=== PATIENT | female | born 1945 | race Two or more races ===

== ENCOUNTER 2020-02-20 08:55 | Outpatient (REF) | payer MEDICARE, SELFPAY ==
[2020-02-20 11:15] LABS: MANUAL DIFF FLAG NO
[2020-02-20 11:32] LABS: Basophils Absolute Auto 0.1 X10*3/uL (0.0-0.2); Basophils Percent Auto 0.7 % (0-2); Eosinophils Absolute Auto 0.3 X10*3/uL (0.0-0.4); Eosinophils Percent Auto 4.9 % (0-4); Hematocrit 34.9 % (37-47); Hemoglobin 10.5 g/dl (12.0-16.0); Imm Gran Abs Auto 0.03 X10*3/uL (0.00-0.03); Imm Gran Pct Auto 0.4 % (0.0-0.4); Lymphocytes Absolute Auto 1.4 X10*3/uL (1.2-4.9); Lymphocytes Percent Auto 20.7 % (20-40); Mean Corpuscular HGB Conc 30.1 g/dl (31.0-35.0); Mean Corpuscular Hemoglobin 23.3 pg (27.0-33.0); Mean Corpuscular Volume 77.6 fL (80-98); Mean Platelet Volume 11.1 fL (9.4-12.3); Monocytes Absolute Auto 0.8 X10*3/uL (0.1-1.2); Monocytes Percent Auto 12.3 % (2-11); Neutrophils Absolute Auto 4.1 X10*3/uL (2.0-8.3); Platelet Count 288 X10*3/uL (160-400); Red Cell Distribution Width 19.4 % (11.0-16.0); White Blood Count 6.7 X10*3/uL (4.8-10.8)
[2020-02-20 11:51] LABS: Glucose Urine UA NEG (NEG); Leukocyte Esterase Urine NEG (NEG); Nitrite Urine NEG (NEG); Urine Blood NEG (NEG); Urine Ketones NEG (NEG); Urine Protein NEG (NEG-TRACE)
[2020-02-20 11:57] LABS: Appearance Urine CLEAR; Color Urine YELLOW
[2020-02-20 12:01] LABS: Alanine Aminotransferase 14 U/L (0-31); Albumin Level 3.8 g/dL (3.5-5.0); Alkaline Phosphatase 81 U/L (39-117); Anion Gap 14 (12-20); Aspartate Amino Transferase 16 U/L (5-31); Bilirubin Total 0.4 mg/dL (0.0-1.0); Blood Urea Nitrogen 34 mg/dL (9-16); C Reactive Protein 0.55 mg/dL (< or = 0.50); Calcium 8.4 mg/dL (8.4-10.2); Carbon Dioxide 24 mmol/L (22-29); Chloride 106 mmol/L (96-108); Estimated Glomerular Filt Rate 38; Glucose Random 205 mg/dL (60-115); Potassium 4.6 mmol/l (3.3-5.1); Sodium 139 mmol/L (135-145); Total Protein 6.4 g/dL (6.5-8.0)
[2020-02-20 12:02] LABS: Hepatitis A Antibody IgM 0.21 Index (0-0.79); ~Hepatitis A Antibody IgM Nonreactive (Nonreactive)
[2020-02-20 12:15] LABS: RBC Urine 0 /HPF (0); Squamous Epithelial Cell Urine 1+ /LPF; WBC Urine 0 /HPF (0-4)
[2020-02-20 12:43] LABS: Erythrocyte Sedimentation Rate 30 MM/HR (0-20)
[2020-02-21 04:04] LABS: HBS Num1 0.78 mIU/mL (0-7.99); HBc Num1 0.09 S/CO (0.00-0.79); Hepatitis B Core Antibody Nonreactive (Nonreactive); ~HepC Num1 0.07 S/CO (0.00-0.79); ~Hepatitis B Surface Antibody NONREACTIVE (Nonreactive); ~Hepatitis C Antibody Nonreactive (Nonreactive)
[2020-02-21 04:16] LABS: HBsAGNum1 0.15 S/CO (0.00-0.99); Hepatitis B Surface Antigen Negative (Negative)
[2020-02-22 19:01] LABS: TS Negative Control Passed; TS Panel A 0; TS Panel B 0; TS Positive Control Passed; TSpotTB Negative (SeeBelow)
== END 2020-02-20 08:56 | disposition home or self-care (01) ==
LOC: HO.LAB 08:55
PROVIDERS: PCP Internal Medicine; Referring Provider Internal Medicine; Visit Provider Student in an Organized Health Care Education/Training Program
DX: M05.9 Rheumatoid arthritis with rheumatoid factor, unspecified (principal); R30.0 Dysuria; Z79.899 Other long term (current) drug therapy
CPT/HCPCS: 36415; 80053; 81001; 85025; 85652; 86140; 86481; 86704; 86706; 86709; 86803; 87340; 99212

== ENCOUNTER 2020-09-09 11:13 | Outpatient (REF) | payer MEDICARE, SELFPAY ==
--- NOTE | ~2020-09-09 | XR_ITS ---
EXAMINATION: LUMBAR SPINE AND PELVIS X-RAY CLINICAL INFORMATION: Rheumatoid arthritis. COMPARISON: Pelvic CT August 2016 TECHNIQUE: One view of the pelvis and 3 views of the lumbar spine FINDINGS: Pelvis: Bone alignment is normal. No fracture or dislocation is seen. There is joint space narrowing at both hip joints. There is irregular increased sclerosis at both sacroiliac joints suggestive of sacroiliitis. Soft tissues are unremarkable. Lumbar spine: There is curvature of the mid lumbar spine to the right. There is mild 1 to 2 mm anterior subluxation of L4 with respect L5. No fracture or dislocation is seen. There is degenerative disc disease at L5-S1 and question L2-L3 and L3-L4. There is lower lumbar spine facet arthritis. There is evidence of atherosclerotic disease. XR/XR pelvis 1-2V IMPRESSION: Pelvis: Bilateral hip joint space narrowing. Bilateral sacroiliitis. Lumbar spine: Curvature of the lumbar spine to the right and degenerative changes.
--- NOTE | ~2020-09-09 | XR_ITS ---
EXAMINATION: LUMBAR SPINE AND PELVIS X-RAY CLINICAL INFORMATION: Rheumatoid arthritis. COMPARISON: Pelvic CT August 2016 TECHNIQUE: One view of the pelvis and 3 views of the lumbar spine FINDINGS: Pelvis: Bone alignment is normal. No fracture or dislocation is seen. There is joint space narrowing at both hip joints. There is irregular increased sclerosis at both sacroiliac joints suggestive of sacroiliitis. Soft tissues are unremarkable. Lumbar spine: There is curvature of the mid lumbar spine to the right. There is mild 1 to 2 mm anterior subluxation of L4 with respect L5. No fracture or dislocation is seen. There is degenerative disc disease at L5-S1 and question L2-L3 and L3-L4. There is lower lumbar spine facet arthritis. There is evidence of atherosclerotic disease. XR/XR lumbar spine 2-3V IMPRESSION: Pelvis: Bilateral hip joint space narrowing. Bilateral sacroiliitis. Lumbar spine: Curvature of the lumbar spine to the right and degenerative changes.
[2020-09-09 13:34] LABS: MANUAL DIFF FLAG NO
[2020-09-09 13:43] LABS: Basophils Absolute Auto 0.1 X10*3/uL (0.0-0.2); Basophils Percent Auto 0.7 % (0-2); Eosinophils Absolute Auto 0.4 X10*3/uL (0.0-0.4); Eosinophils Percent Auto 5.1 % (0-4); Hematocrit 31.5 % (37-47); Hemoglobin 9.4 g/dl (12.0-16.0); Imm Gran Abs Auto 0.08 X10*3/uL (0.00-0.03); Lymphocytes Percent Auto 13.4 % (20-40); Mean Corpuscular HGB Conc 29.8 g/dl (31.0-35.0); Mean Corpuscular Hemoglobin 22.9 pg (27.0-33.0); Mean Corpuscular Volume 76.8 fL (80-98); Mean Platelet Volume 10.1 fL (9.4-12.3); Monocytes Absolute Auto 0.8 X10*3/uL (0.1-1.2); Monocytes Percent Auto 10.2 % (2-11); Neutrophils Absolute Auto 5.3 X10*3/uL (2.0-8.3); Neutrophils Percent Auto 69.6 % (45-73); Platelet Count 381 X10*3/uL (160-400); Red Cell Distribution Width 18.8 % (11.0-16.0); White Blood Count 7.6 X10*3/uL (4.8-10.8)
[2020-09-09 13:50] LABS: Alanine Aminotransferase 10 U/L (0-31); Albumin Level 3.6 g/dL (3.5-5.0); Alkaline Phosphatase 92 U/L (39-117); Anion Gap 15 (12-20); Aspartate Amino Transferase 13 U/L (5-31); Bilirubin Total 0.5 mg/dL (0.0-1.0); Blood Urea Nitrogen 21 mg/dL (9-16); C Reactive Protein 0.65 mg/dL (< or = 0.50); Carbon Dioxide 20 mmol/L (22-29); Chloride 107 mmol/L (96-108); Estimated Glomerular Filt Rate 46; Glucose Random 196 mg/dL (60-115); Potassium 4.9 mmol/L (3.3-5.1); Sodium 137 mmol/L (135-145); Total Protein 6.4 g/dL (6.5-8.0)
[2020-09-09 14:34] LABS: Erythrocyte Sedimentation Rate 45 MM/HR (0-20)
== END 2020-09-09 11:14 | disposition home or self-care (01) ==
LOC: HO.XRAY 11:13
PROVIDERS: PCP Internal Medicine; Visit Provider Student in an Organized Health Care Education/Training Program
DX: M47.816 Spondylosis without myelopathy or radiculopathy, lumbar region (principal); M05.9 Rheumatoid arthritis with rheumatoid factor, unspecified
CPT/HCPCS: 36415; 72100; 72170; 80053; 85025; 85652; 86140; 99212

== ENCOUNTER → 2022-01-04 13:03 | Outpatient (BNVA) | payer MEDICARE, SELFPAY | PROVIDERS: PCP Internal Medicine; Visit Provider Internal Medicine | DX: M54.16 Radiculopathy, lumbar region (principal); Z98.890 Other specified postprocedural states | CPT/HCPCS: 99202 ==

== ENCOUNTER 2022-01-07 15:00 | Outpatient (REF) | payer MEDICARE, SELFPAY ==
--- NOTE | ~2022-01-07 | XR_ITS ---
EXAMINATION: XR ANKLE, LEFT XR FOOT, LEFT XR ANKLE, RIGHT XR FOOT, RIGHT CLINICAL INFORMATION: Pain and bilateral ankles and feet COMPARISON: None TECHNIQUE: 3 views of the left ankle. 3 views of the left foot. 3 views of the right ankle. 3 views of the right foot. FINDINGS: Left ankle and foot: There is anatomic alignment across the ankle. Distal tibia and fibula are intact. Chronic appearing calcification in the posterior distal leg is suggestive of a phlebolith. Posterior calcaneal spurring is noted. There is varus angulation at the second through fifth MTP joints. Articular alignment throughout the foot otherwise appears maintained, with no acute fracture identified. Right ankle and foot: Alignment across the ankle is anatomic with mild degenerative change. Distal tibia and fibula are intact. Posterior and plantar calcaneal spurs are noted. Mild degenerative change at the first MTP joint. There is varus angulation at the second through fifth MTP joints. Articular alignment throughout the foot otherwise appears maintained, with no acute fracture identified. XR/XR foot RT 2V IMPRESSION: No acute findings identified in the ankles or feet. Varus angulation at the second through fifth MTP joints bilaterally. Additional chronic appearing/degenerative changes as noted above.
--- NOTE | ~2022-01-07 | XR_ITS ---
EXAMINATION: XR ANKLE, LEFT XR FOOT, LEFT XR ANKLE, RIGHT XR FOOT, RIGHT CLINICAL INFORMATION: Pain and bilateral ankles and feet COMPARISON: None TECHNIQUE: 3 views of the left ankle. 3 views of the left foot. 3 views of the right ankle. 3 views of the right foot. FINDINGS: Left ankle and foot: There is anatomic alignment across the ankle. Distal tibia and fibula are intact. Chronic appearing calcification in the posterior distal leg is suggestive of a phlebolith. Posterior calcaneal spurring is noted. There is varus angulation at the second through fifth MTP joints. Articular alignment throughout the foot otherwise appears maintained, with no acute fracture identified. Right ankle and foot: Alignment across the ankle is anatomic with mild degenerative change. Distal tibia and fibula are intact. Posterior and plantar calcaneal spurs are noted. Mild degenerative change at the first MTP joint. There is varus angulation at the second through fifth MTP joints. Articular alignment throughout the foot otherwise appears maintained, with no acute fracture identified. XR/XR ankle RT min 3V IMPRESSION: No acute findings identified in the ankles or feet. Varus angulation at the second through fifth MTP joints bilaterally. Additional chronic appearing/degenerative changes as noted above.
--- NOTE | ~2022-01-07 | XR_ITS ---
EXAMINATION: XR ANKLE, LEFT XR FOOT, LEFT XR ANKLE, RIGHT XR FOOT, RIGHT CLINICAL INFORMATION: Pain and bilateral ankles and feet COMPARISON: None TECHNIQUE: 3 views of the left ankle. 3 views of the left foot. 3 views of the right ankle. 3 views of the right foot. FINDINGS: Left ankle and foot: There is anatomic alignment across the ankle. Distal tibia and fibula are intact. Chronic appearing calcification in the posterior distal leg is suggestive of a phlebolith. Posterior calcaneal spurring is noted. There is varus angulation at the second through fifth MTP joints. Articular alignment throughout the foot otherwise appears maintained, with no acute fracture identified. Right ankle and foot: Alignment across the ankle is anatomic with mild degenerative change. Distal tibia and fibula are intact. Posterior and plantar calcaneal spurs are noted. Mild degenerative change at the first MTP joint. There is varus angulation at the second through fifth MTP joints. Articular alignment throughout the foot otherwise appears maintained, with no acute fracture identified. XR/XR ankle LT min 3V IMPRESSION: No acute findings identified in the ankles or feet. Varus angulation at the second through fifth MTP joints bilaterally. Additional chronic appearing/degenerative changes as noted above.
--- NOTE | ~2022-01-07 | XR_ITS ---
EXAMINATION: XR ANKLE, LEFT XR FOOT, LEFT XR ANKLE, RIGHT XR FOOT, RIGHT CLINICAL INFORMATION: Pain and bilateral ankles and feet COMPARISON: None TECHNIQUE: 3 views of the left ankle. 3 views of the left foot. 3 views of the right ankle. 3 views of the right foot. FINDINGS: Left ankle and foot: There is anatomic alignment across the ankle. Distal tibia and fibula are intact. Chronic appearing calcification in the posterior distal leg is suggestive of a phlebolith. Posterior calcaneal spurring is noted. There is varus angulation at the second through fifth MTP joints. Articular alignment throughout the foot otherwise appears maintained, with no acute fracture identified. Right ankle and foot: Alignment across the ankle is anatomic with mild degenerative change. Distal tibia and fibula are intact. Posterior and plantar calcaneal spurs are noted. Mild degenerative change at the first MTP joint. There is varus angulation at the second through fifth MTP joints. Articular alignment throughout the foot otherwise appears maintained, with no acute fracture identified. XR/XR foot LT 2V IMPRESSION: No acute findings identified in the ankles or feet. Varus angulation at the second through fifth MTP joints bilaterally. Additional chronic appearing/degenerative changes as noted above.
[2022-01-07 15:26] LABS: MANUAL DIFF FLAG NO
[2022-01-07 15:31] LABS: Basophils Absolute Auto 0.1 X10*3/uL (0.0-0.2); Basophils Percent Auto 0.7 % (0-2); Eosinophils Absolute Auto 0.4 X10*3/uL (0.0-0.4); Hematocrit 34.5 % (37.0-47.0); Hemoglobin 10.6 g/dl (12.0-16.0); Imm Gran Abs Auto 0.03 X10*3/uL (0.00-0.03); Imm Gran Pct Auto 0.4 % (0.0-0.4); Lymphocytes Absolute Auto 1.3 X10*3/uL (1.2-4.9); Lymphocytes Percent Auto 19.5 % (20-40); Mean Corpuscular HGB Conc 30.7 g/dl (31.0-35.0); Mean Corpuscular Hemoglobin 24.8 pg (27.0-33.0); Mean Corpuscular Volume 80.8 fL (80.0-98.0); Mean Platelet Volume 10.5 fL (9.4-12.3); Monocytes Absolute Auto 0.8 X10*3/uL (0.1-1.2); Monocytes Percent Auto 11.8 % (2-11); Neutrophils Absolute Auto 4.2 x10*3/uL (2.0-8.3); Neutrophils Percent Auto 61.6 % (45-73); Platelet Count 314 X10*3/uL (160-400); Red Blood Count 4.27 X10*6/uL (4.20-5.50); Red Cell Distribution Width 15.7 % (11.0-16.0); White Blood Count 6.9 X10*3/uL (4.8-10.8)
[2022-01-07 15:46] LABS: Estimated Average Glucose 131 mg/dL; Hemoglobin A1c % 6.2 %
[2022-01-07 15:49] LABS: Alanine Aminotransferase 14 U/L (0-31); Albumin Level 3.8 g/dL (3.5-5.0); Alkaline Phosphatase 109 U/L (39-117); Anion Gap 15 (12-20); Aspartate Amino Transferase 20 U/L (5-31); Bilirubin Total 0.5 mg/dL (0.0-1.0); Blood Urea Nitrogen 33 mg/dL (9-16); C Reactive Protein 1.15 mg/dL (< or = 0.50); Calcium 8.6 mg/dL (8.4-10.2); Carbon Dioxide 24 mmol/L (22-29); Chloride 105 mmol/L (96-108); Estimated Glomerular Filt Rate 43; Glucose Random 81 mg/dL (60-115); Potassium 4.8 mmol/L (3.3-5.1); Sodium 139 mmol/L (135-145); Total Protein 6.4 g/dL (6.5-8.0); Uric Acid 6.9 mg/dL (2.4-5.7)
[2022-01-07 16:13] LABS: Erythrocyte Sedimentation Rate 54 MM/HR (0-20)
[2022-01-07 17:30] LABS: Iron 32 mcg/dL (30-160); Percent Iron Saturation 9 % (15-50); Total Iron Binding Capacity 337 mcg/dL (228-428); Unsaturated Iron Binding 305 ug/dL
[2022-01-07 17:50] LABS: Ferritin 194 ng/mL (10-250)
[2022-01-08 07:14] LABS: HBS Num1 1.48 mIU/mL (0-7.99); HBc Num1 0.06 S/CO (0.00-0.79); HBsAGNum1 0.23 S/CO (0.00-0.99); Hepatitis A Antibody IgM 0.26 Index (0-0.79); Hepatitis B Core Antibody Nonreactive (Nonreactive); Hepatitis B Surface Antigen Negative (Negative); ~HepC Num1 0.07 S/CO (0.00-0.79); ~Hepatitis A Antibody IgM Nonreactive (Nonreactive); ~Hepatitis B Surface Antibody NONREACTIVE (Nonreactive); ~Hepatitis C Antibody Nonreactive (Nonreactive)
[2022-01-09 14:27] LABS: Transferrin 254 mg/dL (188-341)
[2022-01-09 23:11] LABS: Prot Elec - Albumin 3.3 g/dL (3.8-4.8); Prot Elec - Alpha1 0.4 g/dL (0.2-0.3); Prot Elec - Beta 1 0.4 g/dL (0.4-0.6); Prot Elec - Beta 2 0.4 g/dL (0.2-0.5); Prot Elec - Gamma 0.6 g/dL (0.8-1.7); Prot Elec - Total Protein 6.2 g/dL (6.1-8.1)
[2022-01-11 13:53] LABS: Vitamin D 25-OH, D2 <4 ng/mL; Vitamin D 25-OH, D3 32 ng/mL; Vitamin D 25-OH, Total 32 ng/mL (30-100)
[2022-01-11 14:22] LABS: IgA 345 mg/dL (70-320); IgG 623 mg/dL (600-1540); IgM 63 mg/dL (50-300)
[2022-01-11 23:41] LABS: TS Negative Control Passed; TS Panel A 0; TS Panel B 0; TS Positive Control Passed; TSpotTB Negative (Negative)
[2022-01-12 10:22] LABS: HLA B27 Negative (Negative)
== END 2022-01-07 15:01 | disposition home or self-care (01) ==
LOC: HO.LAB 15:00
PROVIDERS: PCP Internal Medicine; Visit Provider Student in an Organized Health Care Education/Training Program
DX: Z13.21 Encounter for screening for nutritional disorder (principal); Z11.7 Encounter for testing for latent tuberculosis infection; Z12.9 Encounter for screening for malignant neoplasm, site unspecified; Z11.59 Encounter for screening for other viral diseases; E11.69 Type 2 diabetes mellitus with other specified complication; E66.9 Obesity, unspecified; E88.81 Metabolic syndrome and other insulin resistance; M54.50 Low back pain, unspecified; M25.572 Pain in left ankle and joints of left foot; M25.571 Pain in right ankle and joints of right foot; M05.9 Rheumatoid arthritis with rheumatoid factor, unspecified
CPT/HCPCS: 36415; 73610; 73620; 80053; 82306; 82728; 82784; 83036; 83540; 84165; 84466; 84550; 85025; 85652; 86140; 86334; 86481; 86704; 86706; 86709; 86803; 86812; 87340; 99212

== ENCOUNTER 2022-01-13 06:11 | Outpatient (REF) | payer MEDICARE, SELFPAY ==
--- NOTE | ~2022-01-13 | FL_ITS ---
EXAMINATION: XR FLUOROSCOPY WITH IMAGES CLINICAL INFORMATION: Left lumbar injection. COMPARISON: None. TECHNIQUE: Fluoroscopy performed by LORENA Bradford. Fluoroscopy time: 0.7 minutes. Cumulative Dose: 19.6 mGy. DAP: 2.42 Gy-cm2. Images: 2. FINDINGS: There is a needle positioned posterior and to the right of L3 vertebra with contrast opacifying the right paraspinal soft tissues. There is loss of disc height at L3-L4 and L4-L5 disc levels with spondylosis. FL/FL guidance in treatment room IMPRESSION: Fluoroscopy guidance was provided to the referrer for pain management.
== END 2022-01-13 06:12 | disposition home or self-care (01) ==
LOC: CF 06:11
PROVIDERS: Visit Provider Internal Medicine
DX: M54.16 Radiculopathy, lumbar region (principal); M05.9 Rheumatoid arthritis with rheumatoid factor, unspecified
CPT/HCPCS: 64483; J1100

== ENCOUNTER 2022-01-26 15:07 | Outpatient (REF) | payer MEDICARE, SELFPAY ==
--- NOTE | ~2022-01-26 | MM_ITS ---
EXAMINATION: BONE DENSITOMETRY CLINICAL INDICATION: Screening for osteoporosis. COMPARISON: Previous BD dated 07/27/2016 and baseline BD dated 07/25/2014. TECHNIQUE: Using a [employer] DXA System (software version: 13.1) manufactured by [employer], dual-energy x-ray absorptiometry was performed of the lumbar spine and left hip. The images are of good technical quality. Summary results are attached. FINDINGS: AP SPINE L1-L2 (excluding L3 and L4): The data of L1-L4 has been changed to exclude the L3 and L4 vertebral bodies, because degenerative change at these levels may cause overestimation of lumbar spine density. Current: BMD 0.822 g/cm2, Z-score -1.7, T-score -2.9, osteoporosis, 13.5% decrease from previous, 4.2% decrease from baseline (<5% change is not significant). Prior: BMD 0.950 g/cm2. Baseline: BMD 0.858 g/cm2. LEFT FEMUR, NECK: Current: BMD 0.655 g/cm2, Z-score -1.2, T-score -2.8, osteoporosis. Prior: BMD 0.696 g/cm2. Baseline: BMD 0.718 g/cm2. LEFT FEMUR, TOTAL: Current: BMD 0.683 g/cm2, Z-score -1.2, T-score -2.6, osteoporosis, 9.9% decrease from previous, 7.3% decrease from baseline (<5% change is not significant). Prior: BMD 0.758 g/cm2. Baseline: BMD 0.737 g/cm2. IDENTIFIED RISK FACTORS: Menopause, glucocorticoids (chronic), history of fracture (adult), osteoporosis, renal, rheumatoid arthritis. HISTORY OF FRACTURE: Humerus. MEDICATIONS: Calcium. MM/XR DEXA axial skeleton IMPRESSION: 1. DIAGNOSIS: Severe osteoporosis based on the lowest T-score value of -2.9 in the lumbar spine applying World Health Organization criteria. 2. 10-YEAR FRACTURE RISK PREDICTION, FRAX: According to the guidelines, FRAX calculation should only be performed on patients in the osteopenia bone density category. Therefore, FRAX was not performed on this patient. 3. Treatment Recommendations: NOF guidelines recommend consideration for treatment in postmenopausal women and men age 50 and older presenting with the following: -A hip or vertebral (clinical or morphometric) fracture. -T-score less than or equal to -2.5 at the femoral neck or spine after appropriate evaluation to exclude secondary causes. -Low bone mass at the hip or spine and a 10-year fracture probability by FRAX of greater than or equal to 3% for hip fracture or greater than or equal to 20% for major osteoporotic fracture based on the [place] adapted WHO algorithm. 4. Other Recommendations: All treatment decisions require clinical judgment and consideration of individual patient factors, including patient preferences, comorbidities, previous drug use, risk factors not captured in the FRAX model (e.g. frailty, falls, vitamin D deficiency, increased bone turnover, interval significant decline in bone density) and possible under or overestimation of fracture risk by FRAX. Additional medical evaluation for secondary cause of low bone mineral density may be appropriate. FUTURE SCAN RECOMMENDATION: People with diagnosed cases of osteoporosis or at high risk for fracture should have regular bone mineral density tests. For patients eligible for Medicare, routine testing is allowed once every 2 years. The testing frequency can be increased to one year for patients who have rapidly progressing disease, those who are receiving or discontinuing medical therapy to restore bone mass, or have additional risk factors.
== END 2022-01-26 15:08 | disposition home or self-care (01) ==
LOC: HO.MAMMO 15:07
PROVIDERS: PCP Internal Medicine; Visit Provider Student in an Organized Health Care Education/Training Program
DX: Z13.820 Encounter for screening for osteoporosis (principal); Z78.0 Asymptomatic menopausal state; M81.0 Age-related osteoporosis without current pathological fracture
CPT/HCPCS: 77080

== ENCOUNTER → 2022-01-28 09:03 | Outpatient (BNVA) | payer MEDICARE, SELFPAY | PROVIDERS: PCP Internal Medicine; Visit Provider Student in an Organized Health Care Education/Training Program | DX: M05.9 Rheumatoid arthritis with rheumatoid factor, unspecified (principal); M54.50 Low back pain, unspecified; Z79.899 Other long term (current) drug therapy; M81.0 Age-related osteoporosis without current pathological fracture; D47.2 Monoclonal gammopathy | CPT/HCPCS: Q3014 ==

== ENCOUNTER 2022-04-05 14:37 | Outpatient (REF) | payer OTHER, SELFPAY ==
[2022-04-05 14:59] LABS: MANUAL DIFF FLAG NO
[2022-04-05 15:05] LABS: Basophils Absolute Auto 0.1 X10*3/uL (0.0-0.2); Basophils Percent Auto 0.7 % (0-2); Eosinophils Percent Auto 0.1 % (0-4); Hematocrit 34.1 % (37.0-47.0); Hemoglobin 10.4 g/dl (12.0-16.0); Imm Gran Abs Auto 0.03 X10*3/uL (0.00-0.03); Imm Gran Pct Auto 0.4 % (0.0-0.4); Lymphocytes Absolute Auto 1.5 X10*3/uL (1.2-4.9); Lymphocytes Percent Auto 20.5 % (20-40); Mean Corpuscular HGB Conc 30.5 g/dl (31.0-35.0); Mean Corpuscular Hemoglobin 23.4 pg (27.0-33.0); Mean Corpuscular Volume 76.6 fL (80.0-98.0); Mean Platelet Volume 10.6 fL (9.4-12.3); Monocytes Absolute Auto 0.7 X10*3/uL (0.1-1.2); Monocytes Percent Auto 9.6 % (2-11); Neutrophils Absolute Auto 5.1 x10*3/uL (2.0-8.3); Neutrophils Percent Auto 68.7 % (45-73); Platelet Count 370 X10*3/uL (160-400); Red Blood Count 4.45 X10*6/uL (4.20-5.50); Red Cell Distribution Width 19.2 % (11.0-16.0); White Blood Count 7.4 X10*3/uL (4.8-10.8)
[2022-04-05 15:32] LABS: Appearance Urine Clear; Color Urine Yellow; Glucose Urine UA Negative (Negative); Leukocyte Esterase Urine Negative (Negative); Nitrite Urine Negative (Negative); PH 5.5 (5.0-9.0); Urine Blood Negative (Negative); Urine Ketones Negative (Negative); Urine Protein Negative (Neg-Trace)
[2022-04-05 15:36] LABS: Bacteria Urine None Seen (None Seen); Hyaline Casts Urine 0-2 /LPF (0-2); RBC Urine 0-2 /HPF (0-2); Squamous Epithelial Cell Urine 0-2 /HPF (0-2); WBC Urine 0-5 /HPF (0-5)
[2022-04-05 15:47] LABS: Erythrocyte Sedimentation Rate 49 MM/HR (0-20)
[2022-04-05 16:15] LABS: Alanine Aminotransferase 13 U/L (0-31); Albumin Level 3.9 g/dL (3.5-5.0); Alkaline Phosphatase 88 U/L (39-117); Anion Gap 13 (12-20); Aspartate Amino Transferase 16 U/L (5-31); Bilirubin Total 0.4 mg/dL (0.0-1.0); Blood Urea Nitrogen 42 mg/dL (9-16); Carbon Dioxide 26 mmol/L (22-29); Chloride 101 mmol/L (96-108); Estimated Glomerular Filt Rate 36; Ferritin 135 ng/mL (10-250); Glucose Random 160 mg/dL (60-115); Iron 35 mcg/dL (30-160); Percent Iron Saturation 11 % (15-50); Potassium 4.8 mmol/L (3.3-5.1); Sodium 135 mmol/L (135-145); Total Iron Binding Capacity 322 mcg/dL (228-428); Total Protein 6.7 g/dL (6.5-8.0); Unsaturated Iron Binding 287 ug/dL
[2022-04-05 16:20] LABS: Creatinine Urine 35.64 mg/dL; Total Protein Urine Random < 7 mg/dL (<12)
[2022-04-06 19:18] LABS: Complement C3 178 mg/dL (83-193)
[2022-04-07 13:02] LABS: Anti DNA DS Antibody <1 IU/mL; Antibody to SS-A Antigen <1.0 NEG AI (<1.0 NEG); Antibody to SS-B Antigen <1.0 NEG AI (<1.0 NEG); SM/Ribonucleoprotein Ab <1.0 NEG AI (<1.0 NEG); Smith Protein <1.0 NEG AI (<1.0 NEG)
[2022-04-07 13:32] LABS: Transferrin 286 mg/dL (188-341)
[2022-04-09 15:18] LABS: Anti Nuclear Antibody Screen NEGATIVE (NEGATIVE)
== END 2022-04-05 14:38 | disposition home or self-care (01) ==
LOC: HO.LAB 14:37
PROVIDERS: PCP Internal Medicine; Visit Provider Student in an Organized Health Care Education/Training Program
DX: D64.9 Anemia, unspecified (principal); R80.9 Proteinuria, unspecified; M05.9 Rheumatoid arthritis with rheumatoid factor, unspecified
CPT/HCPCS: 36415; 80053; 81001; 82728; 83540; 84156; 84466; 85025; 85652; 86038; 86039; 86140; 86160; 86225; 86235

== ENCOUNTER 2022-04-06 10:51 | Outpatient (REF) | payer OTHER, SELFPAY ==
[2022-04-09 10:38] LABS: PEU-Protein Creat Ratio Rand NOTE (0.024-0.184); PEU-Rand. Prot/Creat Ratio NOTE mg/g creat (24-184); PEU-Random Ur. Gamma Globulin 0 %; PEU-Random Urine A1 Globulin 0 %; PEU-Random Urine A2 Globulin 0 %; PEU-Random Urine Albumin 0 %; PEU-Random Urine Beta Globulin 0 %; PEU-Random Urine Creatinine 25 mg/dL (20-275); PEU-Random Urine Protein <4 mg/dL (5-24)
== END 2022-04-06 10:52 | disposition home or self-care (01) ==
LOC: HO.LNP 10:51
PROVIDERS: Visit Provider Student in an Organized Health Care Education/Training Program
DX: R80.9 Proteinuria, unspecified (principal); M05.9 Rheumatoid arthritis with rheumatoid factor, unspecified; M54.50 Low back pain, unspecified; M81.0 Age-related osteoporosis without current pathological fracture; D47.2 Monoclonal gammopathy; Z79.899 Other long term (current) drug therapy; Z51.81 Encounter for therapeutic drug level monitoring
CPT/HCPCS: 82570; 84156; 84166; Q3014

== ENCOUNTER 2022-06-08 16:45 | Outpatient (REF) | payer OTHER, SELFPAY ==
[2022-06-08 16:57] LABS: MANUAL DIFF FLAG NO
[2022-06-08 18:17] LABS: Basophils Absolute Auto 0.1 X10*3/uL (0.0-0.2); Basophils Percent Auto 0.9 % (0-2); Eosinophils Absolute Auto 0.4 X10*3/uL (0.0-0.4); Eosinophils Percent Auto 6.7 % (0-4); Hematocrit 33.6 % (37.0-47.0); Hemoglobin 10.2 g/dl (12.0-16.0); Imm Gran Abs Auto 0.03 X10*3/uL (0.00-0.03); Imm Gran Pct Auto 0.5 % (0.0-0.4); Lymphocytes Absolute Auto 1.4 X10*3/uL (1.2-4.9); Lymphocytes Percent Auto 24.5 % (20-40); Mean Corpuscular HGB Conc 30.4 g/dl (31.0-35.0); Mean Corpuscular Hemoglobin 23.2 pg (27.0-33.0); Mean Corpuscular Volume 76.5 fL (80.0-98.0); Mean Platelet Volume 11.2 fL (9.4-12.3); Monocytes Absolute Auto 0.9 X10*3/uL (0.1-1.2); Neutrophils Percent Auto 52.4 % (45-73); Platelet Count 311 X10*3/uL (160-400); Red Blood Count 4.39 X10*6/uL (4.20-5.50); Red Cell Distribution Width 18.3 % (11.0-16.0); White Blood Count 5.8 X10*3/uL (4.8-10.8)
[2022-06-08 18:53] LABS: Erythrocyte Sedimentation Rate 37 MM/HR (0-20)
[2022-06-08 19:01] LABS: Alanine Aminotransferase 12 U/L (0-31); Albumin Level 3.7 g/dL (3.5-5.0); Alkaline Phosphatase 84 U/L (39-117); Anion Gap 13 (12-20); Aspartate Amino Transferase 16 U/L (5-31); Bilirubin Total 0.4 mg/dL (0.0-1.0); Blood Urea Nitrogen 38 mg/dL (9-16); C Reactive Protein 0.33 mg/dL (< or = 0.50); Calcium 8.8 mg/dL (8.4-10.2); Carbon Dioxide 23 mmol/L (22-29); Chloride 105 mmol/L (96-108); Estimated Glomerular Filt Rate 42; Glucose Random 109 mg/dL (60-115); Potassium 4.4 mmol/L (3.3-5.1); Sodium 137 mmol/L (135-145); Total Protein 6.2 g/dL (6.5-8.0)
== END 2022-06-08 16:46 | disposition home or self-care (01) ==
LOC: HO.LAB 16:45
PROVIDERS: PCP Internal Medicine; Visit Provider Student in an Organized Health Care Education/Training Program
DX: M05.9 Rheumatoid arthritis with rheumatoid factor, unspecified (principal)
CPT/HCPCS: 36415; 80053; 85025; 85652; 86140

== ENCOUNTER → 2022-06-09 14:24 | Outpatient (BNVA) | payer OTHER, SELFPAY | PROVIDERS: PCP Internal Medicine; Visit Provider Student in an Organized Health Care Education/Training Program | DX: M05.9 Rheumatoid arthritis with rheumatoid factor, unspecified (principal); M81.0 Age-related osteoporosis without current pathological fracture; D47.2 Monoclonal gammopathy; Z79.899 Other long term (current) drug therapy | CPT/HCPCS: Q3014 ==

== ENCOUNTER 2022-09-10 11:17 | Outpatient (REF) | payer MEDICARE, SELFPAY ==
--- NOTE | ~2022-09-10 | MR_ITS ---
MR LUMBAR SPINE WITHOUT AND WITH CONTRAST CLINICAL INFORMATION: Lumbago with sciatica. COMPARISON: Lumbar spine MRI 12/29/2021. TECHNIQUE: MRI of the lumbar spine was obtained using routine sequences with and without contrast. Intravenous contrast: Gadavist 9 mL FINDINGS: There are 5 nonrib-bearing lumbar-type vertebral bodies. There is grade 1 anterolisthesis of L4 on L5. There is moderate disc volume loss at L3-L4. Mild disc volume loss at L5-S1. Disc desiccation at all lumbar levels. Modic type I endplate signal changes at L3-L4. No additional bone marrow edema. No acute fractures. No pathologic enhancement along the cauda equina nerve roots. Vertebral body heights overall maintained. Conus terminates at the L1 level. L1-L2: Slight annular disc bulge. No central canal stenosis and no foraminal stenosis. L2-L3: Shallow left paracentral disc protrusion results in posterior mass effect on the traversing left L3 nerve root within the left subarticular zone. Disc osteophyte and facet arthropathy result in mild bilateral foraminal encroachment. L3-L4: There are postoperative changes following left hemilaminectomy and microdiscectomy. Peripherally enhancing low T2 signal intensity abnormality within the left ventral epidural space measuring up to 1.5 cm AP by 2 cm TV that most likely reflects residual/recurrent disc herniation that should be correlated with the operative findings. This abnormality results in persistent effacement of the left subarticular zone with compression of traversing left-sided nerve roots and severe central canal stenosis. Disc osteophyte and facet arthropathy result in moderate to severe bilateral foraminal stenosis with mass effect on the exiting L3 nerve roots bilaterally. Inferiorly migrating far right lateral disc extrusion results in mass effect on the right L4 nerve root below this level. L4-L5: Diffuse annular disc bulge and severe bilateral facet arthropathy and ligamentum flavum thickening. Findings in concert result in progressive right greater than left subarticular zone stenosis with mass effect on the traversing right greater than left L5 nerve roots and mild to moderate left-sided foraminal encroachment. L5-S1: Small annular disc bulge with a superimposed right paracentral/right lateral disc osteophyte protrusion resulting in posterior mass effect on the traversing right S1 nerve root within the right subarticular zone and moderate right-sided foraminal stenosis and mass effect on the extraforaminal right L5 nerve root findings are similar to the prior study. MR/MR lumbar spine wo/w con IMPRESSION: - At L3-L4, there are postoperative changes following left hemilaminectomy and microdiscectomy. Peripherally enhancing low T2 signal intensity abnormality within the left ventral epidural space measuring up to 1.5 cm AP by 2 cm TV that most likely reflects a residual/recurrent disc herniation that should be correlated with the operative findings. This epidural abnormality results in persistent effacement of the left subarticular zone with compression of traversing left-sided nerve roots and severe central canal stenosis. Moderate to severe bilateral foraminal stenosis at L3-L4 with mass effect on the exiting L3 nerve roots bilaterally. Inferiorly migrating far right lateral disc extrusion results in mass effect on the right L4 nerve root below this level within the extraforaminal zone. - At L4-L5, progressive spondylitic changes result in worsening right greater than left subarticular zone stenosis with mass effect on the traversing right greater than left L5 nerve roots and mild to moderate left-sided foraminal encroachment. - At L5-S1, a right paracentral/right lateral disc osteophyte protrusion results in posterior mass effect on the traversing right S1 nerve root within the right subarticular zone and moderate right-sided foraminal stenosis and mass effect on the extraforaminal right L5 nerve root findings are similar to the prior study. - At L2-L3, a shallow left paracentral disc protrusion results in similar mass effect on the traversing left L3 nerve root within the left subarticular zone.
== END 2022-09-10 11:18 | disposition home or self-care (01) ==
LOC: HO.MRI 11:17
PROVIDERS: PCP Internal Medicine; Visit Provider Neurological Surgery
DX: M54.50 Low back pain, unspecified (principal)
CPT/HCPCS: 72158; A9585

== ENCOUNTER → 2022-09-22 12:46 | Outpatient (BNVA) | payer MEDICARE, SELFPAY | PROVIDERS: PCP Internal Medicine; Visit Provider Neurological Surgery | DX: M43.16 Spondylolisthesis, lumbar region (principal); M51.16 Intervertebral disc disorders with radiculopathy, lumbar region | CPT/HCPCS: 99212 ==

== ENCOUNTER 2022-11-15 09:31 | Inpatient (IN) | payer OTHER, SELFPAY ==
[2022-10-14 13:30] VITALS: BP 142/70; PULSE 75; RESP 18; O2SAT 96; BMI 34.5
--- NOTE | 2022-10-14 13:58 | HO.ANESPROP2 ---
Documented by User: Marbella Muir NP 11/01/22 15:05 HPI - Anesthesia Eval Consult details Narrative: 77yo F for L3-4 Oblique Lumbar Interbody Fusion and L3-4 Discectomy, 11/15/22 Medically optimized per [facility] Preop clinic No recent illness No chest pain Some chronic FLOWERS. No asthma exac FBS ~120 Reports GERD can trigger bronchospasm. PPI BID. Famotadine preop. PMFSH Active Problems Active Problems: All Active Problems (Updated 10/14/22 @ 13:24 by Vesta Huber, RN) Dysuria (Acute) Lumbar spondylosis (Acute) Lumbar radiculopathy (Acute) Screening for viral disease (Acute) Metabolic syndrome (Acute) Diabetes mellitus type 2 in obese (Acute) Encounter for vitamin deficiency screening (Acute) Anemia (Acute) Cancer screening (Acute) Low back pain, unspecified (Acute) Encounter for monitoring leflunomide therapy (Acute) Age-related osteoporosis without current pathological fracture (Acute) IgA monoclonal gammopathy (Acute) Back pain of lumbar region with sciatica (Acute) Spondylolisthesis, lumbar region (Acute) Lumbar disc herniation with radiculopathy (Acute) History of lumbar surgery (Acute) Seropositive rheumatoid arthritis (Acute) Past Medical History Medical History (Updated 10/14/22 @ 13:24 by Vesta Huber RN) Arthritis Asthma Back pain Cataract Diabetes Elevated cholesterol GERD (gastroesophageal reflux disease) Hiatal hernia HTN (hypertension) Numbness Osteoporosis Proteinuria Seropositive rheumatoid arthritis Family History Family History Brother HTN (hypertension) Diabetes Sister Diabetes Rheumatoid arthritis Family history of problems with anesthesia: No Surgical History Surgical History (Updated 10/14/22 @ 13:24 by Vesta Huber RN) History of lumbar surgery Hx of bilateral cataract extraction History of Problems with Anesthesia: No Social History Social History Are you a primary home child care provider to a significant other at home: No Do you presently have visiting nurse or other home services: Yes Alcohol intake: never Patient Tobacco Use Status: Never used Tobacco Use of substances other than those prescribed or required for medical reasons: No Have you been hit, kicked, punched, or otherwise hurt by someone within the past year? If so, by whom?: No Are you DNR?: No Advance Directives: No Advance Directives Information Provided: No Advance Directives on File: No Recently lost weight without trying: No Eating poorly because of decreased appetite: No Nutrition Risks: No Nutritional Risk Patient : No : No Poor oral hygiene: Yes (missing teeth on bottom) Meds Allergies Allergy/AdvReac Type Severity Reaction Status Date / Time Penicillins [PCN] Allergy Intermediate RASH Verified 06/09/22 14:34 Home Medications Medication Instructions Recorded Confirmed Last Taken Type acetaminophen 650 mg 650 mg PO Q12H PRN Pain 02/20/20 10/08/22 Unknown History tablet,extended release (Tylenol Arthritis Pain) albuterol sulfate 90 mcg/actuation 2 inh inhalation Q4-6H PRN 02/20/20 10/08/22 Unknown History breath activated powder inhaler Shortness Of Breath fluticasone furoate 100 1 inh inhalation DAILY 02/20/20 10/14/22 Unknown History mcg-vilanterol 25 mcg/dose inhalation powder (Breo Ellipta) losartan 50 mg tablet 50 mg PO DAILY 02/20/20 10/08/22 Unknown History tramadol 50 mg tablet 50 mg PO Q8H PRN Pain 09/09/20 10/08/22 Unknown History furosemide 40 mg tablet 40 mg PO DAILY 01/28/22 10/08/22 Unknown History gabapentin 300 mg capsule 300 mg PO TID 01/28/22 10/08/22 Unknown History nifedipine 60 mg tablet,extended 60 mg PO DAILY 01/28/22 10/08/22 Unknown History release propranolol 20 mg tablet 20 mg PO BID 01/28/22 10/08/22 Unknown History atorvastatin 20 mg tablet 20 mg PO BEDTIME 04/06/22 10/14/22 Unknown History glimepiride 4 mg tablet 4 mg PO DAILY 04/06/22 10/08/22 Unknown History hydralazine 50 mg tablet 50 mg PO BID 04/06/22 10/08/22 Unknown History docusate sodium 100 mg capsule 100 mg PO BID PRN Constipation 06/09/22 10/08/22 Unknown History omeprazole magnesium 20 mg 20 mg PO BID 06/09/22 10/08/22 Unknown History tablet,delayed release (Prilosec OTC) Exam Exam Date and Time: October 14, 2022 1358 Height,Weight and Vital Signs: Height 5 ft 4 in Weight 91.172 kg Last Vital Signs Pulse 75 10/14/22 13:30 Resp 18 10/14/22 13:30 BP 142/70 H 10/14/22 13:30 Pulse Ox 96 10/14/22 13:30 O2 Del Method Room Air 10/14/22 13:30 Pertinent Lab Results Pertinent Lab Results: Laboratory Tests 06/08/22 06/08/22 16:54 16:54 WBC 5.8 Hgb 10.2 L Hct 33.6 L Plt Count 311 Sodium 137 Potassium 4.4 Chloride 105 Carbon Dioxide 23 BUN 38 H Creatinine 1.25 Narrative Narrative: EKG 09/2022 NSR @ 81 Airway Mallampati Class: II TM Dist: >3cm Neck ROM: Full Loose/Missing/Broken Teeth: Yes (Missing lower front) Heart: RRR Lungs: CTAB Assessment and Plan Assessment Anesthesia Assessment: Anesthesia Plan Discussed and PAT Visit Final Anesthetic Review Family History of Problems with Anesthesia: No History of Problems with Anesthesia: No Documented by User: Bernardino Mcgill MD 11/15/22 09:55 [facility] Past Medical History Medical History (Updated 10/14/22 @ 13:24 by Vesta Huber, RN) Arthritis Asthma Back pain Cataract Diabetes Elevated cholesterol GERD (gastroesophageal reflux disease) Hiatal hernia HTN (hypertension) Numbness Osteoporosis Proteinuria Seropositive rheumatoid arthritis Family History Family History Brother HTN (hypertension) Diabetes Sister Diabetes Rheumatoid arthritis Surgical History Surgical History (Updated 10/14/22 @ 13:24 by Vesta Huber, RN) History of lumbar surgery Hx of bilateral cataract extraction Social History Social History Are you a primary home child care provider to a significant other at home: No Do you presently have visiting nurse or other home services: Yes Alcohol intake: never Patient Tobacco Use Status: Never used Tobacco Use of substances other than those prescribed or required for medical reasons: No Have you been hit, kicked, punched, or otherwise hurt by someone within the past year? If so, by whom?: No Are you DNR?: No Advance Directives: No Advance Directives Information Provided: No Advance Directives on File: No Recently lost weight without trying: No Eating poorly because of decreased appetite: No Nutrition Risks: No Nutritional Risk Patient : No : No Poor oral hygiene: Yes (missing teeth on bottom) Meds Allergies Allergy/AdvReac Type Severity Reaction Status Date / Time Penicillins [PCN] Allergy Intermediate RASH Verified 06/09/22 14:34 Home Medications Medication Instructions Recorded Confirmed Last Taken Type acetaminophen 650 mg 650 mg PO Q12H PRN Pain 02/20/20 10/08/22 Unknown History tablet,extended release (Tylenol Arthritis Pain) albuterol sulfate 90 mcg/actuation 2 inh inhalation Q4-6H PRN 02/20/20 10/08/22 Unknown History breath activated powder inhaler Shortness Of Breath fluticasone furoate 100 1 inh inhalation DAILY 02/20/20 10/14/22 Unknown History mcg-vilanterol 25 mcg/dose inhalation powder (Breo Ellipta) losartan 50 mg tablet 50 mg PO DAILY 02/20/20 10/08/22 Unknown History tramadol 50 mg tablet 50 mg PO Q8H PRN Pain 09/09/20 10/08/22 Unknown History furosemide 40 mg tablet 40 mg PO DAILY 01/28/22 10/08/22 Unknown History gabapentin 300 mg capsule 300 mg PO TID 01/28/22 10/08/22 Unknown History nifedipine 60 mg tablet,extended 60 mg PO DAILY 01/28/22 10/08/22 Unknown History release propranolol 20 mg tablet 20 mg PO BID 01/28/22 10/08/22 Unknown History atorvastatin 20 mg tablet 20 mg PO BEDTIME 04/06/22 10/14/22 Unknown History glimepiride 4 mg tablet 4 mg PO DAILY 04/06/22 10/08/22 Unknown History hydralazine 50 mg tablet 50 mg PO BID 04/06/22 10/08/22 Unknown History docusate sodium 100 mg capsule 100 mg PO BID PRN Constipation 06/09/22 10/08/22 Unknown History omeprazole magnesium 20 mg 20 mg PO BID 06/09/22 10/08/22 Unknown History tablet,delayed release (Prilosec OTC) Assessment and Plan Final Anesthetic Review NPO: Yes ASA Class: III Final Preanesthetic Review: No Changes in Pt Med Stat, Meds/Allgs Chart Reviewed, Consent Obtained/Reviewed and Anes Risks/Benef Reviewed Patient Risk: Intermediate Procedure Risk: Intermediate Anesthetic Plan Anesthetic Plan: GA and Agree w/ Assess. and Plan Disposition: Standard PACU
[2022-11-15] VITALS (16 sets, daily range): BP systolic 93–183; BP diastolic 61–97; PULSE 82–98; RESP 16–22; TEMP 36–36.9; O2SAT 93–100
--- NOTE | ~2022-11-15 | FL_ITS ---
EXAMINATION: XR FLUOROSCOPY WITH IMAGES CLINICAL INFORMATION: Lumbar interbody fusion. COMPARISON: None available. TECHNIQUE: Fluoroscopy Supervised By: Dr. Salomon. Fluoroscopy Time: 1.5 minutes. Cumulative Dose: 127 mGy. DAP: 1.5 Gycm2. Images: 4. FINDINGS: There are several digital images obtained revealing disc prosthesis at the L3-L4 disc level and bilateral L3-L4 pedicle screws with interconnecting rods for stabilization. There is mild loss of L5-S1 disc height. FL/FL guidance in OR IMPRESSION: Fluoroscopy guidance was provided to referring physician in the OR during interbody L3-L4 fusion and posterior hardware.
--- OUTSIDE RECORDS SUMMARY | 2022-11-15 09:38 | XMS_ITS | Continuity of Care Document ---
Author Name Unknown Organization [facility] Address [address] [place] [address] [address], [address] [place] [address]- Care Team Providers Care Petroleum Products Sales Representative Name Role Phone Rekha RUIZ, Helga Primary Care Physici an Encounter [facility] Date(s): 02/10/22 - 03/12/[address], [address] [place], [place] [address] Attending Physician: Roberto Eng Admitting Physician: AdmtrRoberto Referring Physician: AdmtrRoberto Allergies, Adverse Reactions, Alerts Substance Reaction Severity Status penicillin Rash Active Immunizations Given and Recorded Vaccine Date Status Refusal Reason SARS-CoV-2 (COVID-19) mRNA BNT-162b2 vac 09/08/20 Recorded SARS-CoV-2 (COVID-19) mRNA BNT-162b2 vac 08/18/20 Recorded influenza virus vaccine, inactivated 02/14/20 Give n influenza virus vaccine, inactivated 01/31/19 Give n influenza virus vaccine, inactivated 01/06/17 Mumtaz rded influenza virus vaccine, inactivated 02/27/16 Mumtaz rded influenza virus vaccine, inactivated 01/09/14 Mumtaz rded pneumococcal 13-valent vaccine 01/06/17 Recorded Medications ACETAMINOPHEN 325MG TABLETS TAKE 3 TABLETS BY MOUTH THREE TIMES DAILY Start Date: 08/22/20 Status: Ordered amLODIPine 10 mg oral tablet See Instructions, TAKE 1 TABLET BY MOUTH EVERY DAY, # 30 tablet, 3 Refills, Maintenance, 12/15/21 10:37:00 EDT[id number], 165, cm, 12/11/21 11:08:00 EDT, Height Start Date: 12/15/21 Status: Ordered Aspirin Low Dose 81 mg oral tablet, chewable ORAL, TABLET, CHEWABLE, 0 Refill(s),, 0 Refills, 07/25/18 15:21:00 EDT Start Date: 07/25/18 Status: Ordered atorvastatin 20 mg oral tablet 1 tablet, By Mouth, Daily, # 30 tablet, 5 Refills, Maintenance, 12/11/21 11:49:00 EDT, [facility] #[id number], 165, cm, 12/11/21 11:08:00 EDT, Height Start Date: 12/11/21 Status: Ordered BED RAIL BED RAIL, See Instructions, # 1 each, Refills 0, Tot. Refills 0, Maintenance, USE DIRECTED DX BACK PAIN, 02/14/20 11:38:00 EDT, Supply Start Date: 02/14/20 Status: Ordered calcium and vitamin D combination 500 mg-200 iu oral tablet ORAL, TABLET, 0 Refill(s),, 0 Refills, 07/25/18 15:21:00 EDT Start Date: 07/25/18 Status: Ordered CHAIN CHAIN, See Instructions, # 1 each, Refills 0, Tot. Refills 0, Maintenance, USE DIRECTED DX BACK PAIN, 02/14/20 11:38:00 EDT, Supply Start Date: 02/14/20 Status: Ordered Colace sodium 100 mg oral capsule 100 mg, 1, capsule, By Mouth, 2 times a day, PRN, # 20 capsule, Refills 0, Tot. Refills 0, Maintenance, for constipation, 11/23/21 10:23:00 EDT, Route to Pharmacy Electronically, [facility]#[id number], Partial fill upon patient request if the pr... Start Date: 11/23/21 Status: Ordered Dulera 200 mcg-5 mcg/inh inhalation aerosol 2 puffs, Inhalation, 2 times a day, # 13 Gm, 5 Refills, Maintenance, 11/24/20 15:42:00 EDT, [facility] #[id number], 30, 2 puffs Inhalation 2 times a day, 165, cm, 02/14/20 11:17:00 EDT, Height Start Date: 11/24/20 Status: Ordered FeroSul 325 mg oral tablet 1 tablet = 325 mg, By Mouth, Daily, TAKE 1 TABLET BY MOUTH TWICE DAILY, # 30 tablet, 2 Refills, Maintenance, 10/27/20 14:46:00 EDT, Tablet, [facility] #[id number], Partial fill upon patient request if the prescription is for a schedule II opioid... Start Date: 10/27/20 Status: Ordered FREESTYLE LANCETS 100 FREESTYLE LANCETS 100, See Instructions, # 100 each, 0 Refills, TO TEST BLOOD SUGARS DAILY, 165, cm, 02/14/20 11:17:00 EDT, Height Start Date: 02/02/21 Status: Ordered FREESTYLE LITE BLOOD GLUCOSE STRIPS FREESTYLE LITE BLOOD GLUCOSE STRIPS, See Instructions, # 100 Unknown, 3 Refills, Maintenance, USE TO TEST BLOOD SUGARS ONCE A DAY, 12/13/21 10:10:00 EDT, 165, cm, 12/11/21 11:08:00 EDT, Height Start Date: 12/13/21 Status: Ordered Freestyle Lite Lancets See Instructions, # 100 each, Refills 2, Tot. Refills 2, Maintenance, Test Sugars once daily DX: E11.9, 07/14/20 15:25:00 EDT, Compound, 165, cm, 02/14/20 11:17:00 EDT, Height, 90.7, kg, 10/22/18 7:28:00 EDT, Dry Weight Start Date: 07/14/20 Status: Ordered Freestyle Lite Monitor See Instructions, # 50 each, Refills 2, Tot. Refills 2, Maintenance, Test Sugars once daily DX: E11.9, 11/10/18 14:45:00 EDT, Compound Start Date: 11/10/18 Status: Ordered Freestyle Lite Test Strips See Instructions, # 100 each, Refills 3, Tot. Refills 3, Maintenance, Test Sugars once daily DX: E11.9, 10/27/20 14:46:00 EDT, Compound, 165, cm, 02/14/20 11:17:00 EDT, Height Start Date: 10/27/20 Status: Ordered gabapentin 300 mg oral capsule 300 mg, 1, capsule, By Mouth, 3 times a day, TAKE 1 CAPSULE BY MOUTH THREE TIMES DAILY, # 90 capsule, Refills 3, Tot. Refills 3, Maintenance, 12/12/21 11:46:00 EDT, Route to Pharmacy Electronically, [facility] #[id number], 165, cm, 12/11/21 11:08... Start Date: 12/12/21 Stop Date: 04/11/22 Status: Ordered glimepiride 4 mg oral tablet 1 tablet, By Mouth, Daily, # 90 tablet, 1 Refills, Maintenance, 02/18/22 21:24:00 EDT, [facility] #[id number], 165, cm, 02/10/22 14:49:00 EDT, Height Start Date: 02/18/22 Status: Ordered HAND HELD SHOWER HEAD HAND HELD SHOWER HEAD, See Instructions, # 1 each, Refills 0, Tot. Refills 0, Maintenance, USE DIRECTED DX BACK PAIN, 02/14/20 11:38:00 EDT, Supply Start Date: 02/14/20 Status: Ordered leflunomide 20 mg oral tablet TAKE 1 TABLET BY MOUTH DAILY Start Date: 08/22/20 Status: Ordered melitonin 3mg tablets melitonin 3mg tablets, See Instructions, # 30 each, Refills 0, Tot. Refills 0, Maintenance, one tablet before bed, 09/18/20 10:02:00 EDT, Supply, 165, cm, 02/14/20 11:17:00 EDT, Height, 90.7, kg, 10/22/18 7:28:00 EDT, Dry Weight Start Date: 09/18/20 Status: Ordered omeprazole 20 mg oral enteric coated capsule 1 capsule = 20 mg, By Mouth, 2 times a day, before a meal, # 60 capsule, 5 Refills, Maintenance, 12/29/21 9:10:00 EDT, EC Capsule, [facility] #[id number], Partial fill upon patient request if the prescription is for a schedule II opioid drug., 16... Start Date: 12/29/21 Status: Ordered ProAir HFA 90 mcg/inh inhalation aerosol with adapter 2, puffs, Inhalation, 4 times a day, # 8.5 Gm, Refills 2, Tot. Refills 2, Maintenance, 11/25/20 10:01:00 EDT, Route to Pharmacy Electronically, [id number], [facility] #[id number], 165, cm, 10/29/20 11:17:00 EDT, Height Start Date: 11/25/20 Status: Ordered ProAir HFA 90 mcg/inh inhalation aerosol with adapter 2, puffs, Inhalation, 4 times a day, # 8.5 Gm, Refills 0, Tot. Refills 0, Maintenance, 11/25/20 7:29:00 EDT, Route to Pharmacy Electronically, [id number], [facility] #[id number], 165, cm, 02/14/20 11:17:00 EDT, Height Start Date: 11/25/20 Status: Ordered propranolol 20 mg oral tablet 20 mg, 1, tablet, By Mouth, 2 times a day, # 180 tablet, Refills 0, Tot. Refills 0, Maintenance, 12/31/21 9:25:00 EDT, Route to Pharmacy Electronically, [facility] #[id number], Partial fill uponpatient request if the prescription is for a schedu... Start Date: 12/31/21 Status: Ordered Shower Chair See Instructions, # 1 each, Refills 0, Tot. Refills 0, Maintenance, USE DIRECTED DX BACK PAIN, 02/14/20 11:38:00 EDT, Supply Start Date: 02/14/20 Status: Ordered Spiriva Respimat 1.25 mcg/inh inhalation aerosol See Instructions, INHALE 2 PUFFS BY MOUTH EVERY DAY, # 12 Gm, 2 Refills, 11/25/20 10:01:00 EDT, [facility] #[id number], 165, cm, 02/14/20 11:17:00 EDT, Height Start Date: 11/25/20 Status: Ordered traMADol 50 mg oral tablet See Instructions, TAKE 1 TABLET BY MOUTH EVERY 6 HOURS NEEDED FOR PAIN, # 180 tablet, 2 Refills,Maintenance, 01/27/22 9:54:00 EDT, [facility] #[id number], 165, cm, 12/31/21 9:12:00 EDT, Height Start Date: 01/27/22 Status: Ordered Walker See Instructions, # 1 each, Refills 0, Tot. Refills 0, Maintenance, ROLLATOR WALKER USE DIRECTEDDX BACK PAIN, 02/14/20 11:38:00 EDT, Supply Start Date: 02/14/20 Status: Ordered Problem List Condition Confirmation Course Effective Dates Status H ealth Status Informant Anemia Confirmed Active Chronic kidney disease, stage 3b 1 Confirmed Active Diabetes mellitus with complication Confirmed Active Diabetic neuropathy Confirmed Active S/P lumbar microdiscectomy Confirmed Active Hyperlipidemia Confirmed Active Hypertensive disorder Confirmed Active Lumbar pain with radiation down left leg Confirmed Active Moderate persistent asthma Confirmed Active Monoclonal gammopathy of uncertain significance Confirmed Active Obese class I Confirmed Active Osteoporosis Confirmed Active Rheumatoid arthritis Confirmed Active 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 1Per chart review meets GFR criteria Social History Social History Type Response Smoking Status Former smoker, quit more than 30 days ago; Other: smoked in teenage years; entered on: 12/19/21 Sex Patient Care team information Care Team Personnel Name: Shayy Camacho Position: [facility] Office Staff Member Role: Lifetime Consulting Physician Name: Rekha RUIZ, Helga Position: [facility] Primary Care Physician Member Role: PCP Address: Address: [address] [place] [address] [place] [address]- Care Team Related Persons Name: TEODORA BHAKTA Address: [address] [place] [id number]
--- OUTSIDE RECORDS SUMMARY | 2022-11-15 09:38 | XMS_ITS | Continuity of Care Document ---
Author Name Unknown Organization [facility] Address [address] [place] [address]- Care Team Providers Care Leak Operator Paraffin Plant Name Role Phone Rekha RUIZ, Helga Primary Care Physici an Encounter [facility] Date(s): 09/16/20 - 10/16/20 [facility] [address] [place], [place] [address] Allergies, Adverse Reactions, Alerts Substance Reaction Severity Status penicillin Rash Active Immunizations Given and Recorded Vaccine Date Status Refusal Reason influenza virus vaccine, inactivated 02/14/20 Give n influenza virus vaccine, inactivated 01/31/19 Give n Medications ACETAMINOPHEN 325MG TABLETS TAKE 3 TABLETS BY MOUTH THREE TIMES DAILY Start Date: 08/22/20 Status: Ordered acetaminophen-HYDROcodone 325 mg-5 mg oral tablet 1 tablet, By Mouth, 2 times a day, PRN for pain, # 30 tablet, 0 Refills, Maintenance, 04/09/20 9:27:00 EST, Tablet, [facility] #[id number], may partial fill, 1 tablet By Mouth 2 times a day,PRN:for pain, 165, cm, 02/14/20 11:17:00 EDT, Height, 90... Start Date: 04/09/20 Status: Ordered alendronate 70 mg oral tablet ORAL, TABLET, 0 Refill(s),, 0 Refills, 07/25/18 15:21:00 EDT Start Date: 07/25/18 Status: Ordered amLODIPine 10 mg oral tablet 1 tablet = 10 mg, By Mouth, Daily, # 30 tablet, 0 Refills, Maintenance, 09/18/20 10:04:00 EDT, Tablet, [facility] #[id number], Partial fill upon patient request if the prescription is for a schedule II opioid drug., 165, cm, 02/14/20 11:17:00 EDT... Start Date: 09/18/20 Status: Ordered Aspirin Low Dose 81 mg oral tablet, chewable ORAL, TABLET, CHEWABLE, 0 Refill(s),, 0 Refills, 07/25/18 15:21:00 EDT Start Date: 07/25/18 Status: Ordered atorvastatin 20 mg oral tablet 1 tablet, By Mouth, Daily, # 90 tablet, 0 Refills, Maintenance, 10/03/20 11:25:00 EDT, [facility] #[id number], 165, cm, 02/14/20 11:17:00 EDT, Height, 90.7, kg, 10/22/18 7:28:00 EDT, Dry Weight Start Date: 10/03/20 Status: Ordered BED RAIL BED RAIL, See [...] EDT, Supply Start Date: 02/14/20 Status: Ordered DOK sodium 100 mg oral capsule TAKE ONE CAPSULE BY MOUTH TWICE DAILY Start Date: 08/22/20 Status: Ordered Dulera 200 mcg-5 mcg/inh inhalation aerosol 2 puffs, Inhalation, 2 times a day, # 13 Gm, 0 Refills, Maintenance, 09/30/20 14:48:00 EDT, [facility] #[id number], 30, INHALE TWO PUFFS TWICE DAILY, 165, cm, 02/14/20 11:17:00 EDT, Height, 90.7, kg, 10/22/18 7:28:00 EDT, Dry Weight Start Date: 09/30/20 Status: Ordered FeroSul 325 mg oral tablet 1 tablet = 325 mg, By Mouth, Daily, TAKE 1 TABLET BY MOUTH TWICE DAILY, # 30 tablet, 0 Refills, Maintenance, 09/18/20 12:49:00 EDT, Tablet, [facility] #[id number], Partial fill upon patient request if the prescription is for a schedule II opioid... Start Date: 09/18/20 Status: Ordered Freestyle Lite Lancets See Instructions, [...] Strips See Instructions, # 100 each, Refills 2, Tot. Refills 2, Maintenance, Test Sugars once daily DX: E11.9, 07/14/20 15:25:00 EDT, Compound, 165, cm, 02/14/20 11:17:00 EDT, Height, 90.7, kg, 10/22/18 7:28:00 EDT, Dry Weight Start Date: 07/14/20 Status: Ordered gabapentin 300 mg oral capsule 300 mg, 1, capsule, By Mouth, 3 times a day, # 90 capsule, Refills 2, Tot. Refills 2, Maintenance, 10/13/20 17:25:00 EDT, Route to Pharmacy Electronically, [facility] #[id number], 165, cm, 02/14/20 11:17:00 EDT, Height, 90.7, kg, 10/22/18 7:28:00... Start Date: 10/13/20 Stop Date: 01/11/21 Status: Ordered glimepiride 4 mg oral tablet 1 tablet, By Mouth, Daily, # 90 tablet, 1 Refills, Maintenance, 08/11/20 16:50:00 EDT, [facility] #[id number], 165, cm, 02/14/20 11:17:00 EDT, Height, 90.7, kg, 10/22/18 7:28:00 EDT, Dry Weight Start Date: 08/11/20 Status: Ordered HAND HELD SHOWER HEAD HAND HELD SHOWER HEAD, See Instructions, # 1 each, Refills 0, Tot. Refills 0, Maintenance, USE DIRECTED DX BACK PAIN, 02/14/20 11:38:00 EDT, Supply Start Date: 02/14/20 Status: Ordered Humira = 40 mg, Subcutaneous Infusion, Once, 0 Refills, Maintenance, 01/24/19 13:19:45 EDT Start Date: 01/24/19 Status: Ordered leflunomide 20 mg oral tablet TAKE 1 TABLET BY MOUTH DAILY Start Date: 08/22/20 Status: Ordered melitonin 3mg tablets melitonin 3mg tablets, See Instructions, # 30 each, Refills 0, Tot. Refills 0, Maintenance, one tablet before bed, 09/18/20 10:02:00 EDT, Supply, 165, cm, 02/14/20 11:17:00 EDT, Height, 90.7, kg, 10/22/18 7:28:00 EDT, Dry Weight Start Date: 09/18/20 Status: Ordered pantoprazole 40 mg oral delayed release tablet 1 tablet = 40 mg, By Mouth, 2 times a day, # 60 tablet, 0 Refills, Maintenance, 09/18/20 10:05:00 EDT, EC Tablet, 165, cm, 02/14/20 11:17:00 EDT, Height, 90.7, kg, 10/22/18 7:28:00 EDT, Dry Weight Start Date: 09/18/20 Status: Ordered ProAir HFA 90 mcg/inh inhalation aerosol with adapter 2, puffs, Inhalation, 4 times a day, # 8.5 Gm, Refills 3, Tot. Refills 0, Maintenance, 08/27/19 10:16:00 EDT, Route to Pharmacy Electronically, [id number], [facility] #[id number], 165, cm, 05/04/19 16:35:00 EST, Height,... Start Date: 08/27/19 Status: Ordered Shower Chair See Instructions, # 1 each, Refills 0, Tot. Refills 0, Maintenance, USE DIRECTED DX BACK PAIN, 02/14/20 11:38:00 EDT, Supply Start Date: 02/14/20 Status: Ordered Spiriva Respimat 1.25 mcg/inh inhalation aerosol See Instructions, INHALE 2 PUFFS BY MOUTH EVERY DAY, # 12 Gm, 0 Refills, Maintenance, [facility] #[id number], 165, cm, 05/04/19 16:35:00 EST, Height, 90.7, kg, 10/22/18 7:28:00 EDT, Dry Weight Start Date: 07/25/19 Status: Ordered traMADol 50 mg oral tablet 1 tablet = 50 mg, By Mouth, Every 12 hours, for 30 days, TAKE 1 TABLET BY MOUTH EVERY 6 HOURS NEEDED FOR PAIN, # 60 tablet, 0 Refills, Acute 11/07/20 9:08:00 EDT, 10/08/20 9:08:00 EDT, Tablet, [facility] #[id number], Partial fill upon patient... Start Date: 10/08/20 Stop Date: 11/07/20 Status: Ordered Walker See Instructions, # 1 each, Refills 0, Tot. Refills 0, Maintenance, ROLLATOR WALKER USE DIRECTEDDX BACK PAIN, 02/14/20 11:38:00 EDT, Supply Start Date: 02/14/20 Status: Ordered Problem List Condition Effective Dates Status Health Status Inform ant Diabetes mellitus with complication(Confirmed) Active Diabetic neuropathy(Confirmed) Active Hyperlipidemia(Confirmed) Active Hypertensive disorder(Confirmed) Active Moderate persistent asthma(Confirmed) Active Monoclonal gammopathy of unc ertain significance(Confirmed) Active Osteoporosis(Confirmed) Active Rheumatoid arthritis(Confirmed) Active DM type 2 causing CKD stage 3(Confirmed) Active Social History Social History Type Response Smoking Status Never (less than 100 in lifetime) entered on: 10/30/18 Sex
--- OUTSIDE RECORDS SUMMARY | 2022-11-15 09:38 | XMS_ITS | Continuity of Care Document ---
Author Name Unknown Organization [facility] Address [address] [place], [place] [address]madhu bradshaw, [address] [place] [address]- Care Team Providers Care Supervising Floorperson Name Role Phone Rekha RUIZ, Helga Primary Care Physici an Encounter [facility] [place] Date(s): 02/10/22 - 02/17/[address], [address] [place], [place] [address] Attending Physician: Anupama Stevenson DO Referring Physician: Helga Da Silva MD Allergies, Adverse Reactions, Alerts Substance Reaction Severity [...] tablet, 3 Refills, Maintenance, 12/15/21 10:37:00 EDT, [facility] #[id number], 165, cm, 12/11/21 11:08:00 EDT, Height Start Date: 12/15/21 Status: Ordered Aspirin Low Dose 81 mg oral tablet, chewable ORAL, TABLET, CHEWABLE, 0 Refill(s),, 0 Refills, 07/25/18 15:21:00 EDT Start Date: 07/25/18 Status: Ordered atorvastatin 20 mg oral tablet 1 tablet, By Mouth, Daily, # 30 tablet, 5 Refills, Maintenance, 12/11/21 11:49:00 EDT, [facility] #[id number], 165, cm, 12/11/21 11:08:00 EDT, Height Start [...] 11/23/21 10:23:00 EDT, Route to Pharmacy Electronically, [id number], Partial fill upon patient request if the pr... Start Date: 11/23/21 Status: Ordered Dulera 200 mcg-5 mcg/inh inhalation aerosol 2 puffs, Inhalation, 2 times a day, # 13 Gm, 5 Refills, Maintenance, 11/24/20 15:42:00 EDT, [facility] #[id number], 30, 2 puffs Inhalation 2 times a day, 165, cm, 02/14/20 11:17:00 EDT, Height Start Date: 11/24/20 Status: Ordered FeroSul 325 mg oral tablet 1 tablet = 325 mg, By Mouth, Daily, TAKE 1 TABLET BY MOUTH TWICE DAILY, # 30 tablet, 2 Refills, Maintenance, 10/27/20 14:46:00 EDT, Tablet, [facility] #[id number], Partial fill upon patient request if the [...] 12/12/21 11:46:00 EDT, Route to Pharmacy Electronically, [facility] #[id number], 165, cm, 12/11/21 11:08... Start Date: 12/12/21 Stop Date: 04/11/22 Status: Ordered glimepiride 4 mg oral tablet 1 tablet, By Mouth, Daily, # 90 tablet, 1 Refills, [facility] #[id number], 165, cm, 02/14/20 11:17:00 EDT, Height Start Date: 02/11/21 Status: Ordered HAND HELD SHOWER HEAD HAND [...] Refills, Maintenance, 12/29/21 9:10:00 EDT, EC Capsule, [facility] #[id number], Partial fill upon patient request if the prescription is for a schedule II opioid drug., 16... Start Date: 12/29/21 Status: Ordered ProAir HFA 90 mcg/inh inhalation aerosol with adapter 2, puffs, Inhalation, 4 times a day, # 8.5 Gm, Refills 2, Tot. Refills 2, Maintenance, 11/25/20 10:01:00 EDT, Route to Pharmacy Electronically, [id number], [facility] #[id number], 165, cm, 02/14/20 11:17:00 EDT, Height Start Date: 11/25/20 Status: Ordered ProAir HFA 90 mcg/inh inhalation aerosol with adapter 2, puffs, Inhalation, 4 times a day, # 8.5 Gm, Refills 0, Tot. Refills 0, Maintenance, 11/25/20 7:29:00 EDT, Route to Pharmacy Electronically, [id number], [facility] #[id number], 165, cm, 02/14/20 11:17:00 EDT, Height Start Date: 11/25/20 Status: Ordered propranolol 20 mg oral tablet 20 mg, 1, tablet, By Mouth, 2 times a day, # 180 tablet, Refills 0, Tot. Refills 0, Maintenance, 12/31/21 9:25:00 EDT, Route to Pharmacy Electronically, [facility] #[id number], Partial fill uponpatient request if the prescription [...] 12 Gm, 2 Refills, 11/25/20 10:01:00 EDT, [facility] #[id number], 165, cm, 02/14/20 11:17:00 EDT, Height Start Date: 11/25/20 Status: Ordered traMADol 50 mg oral tablet See Instructions, TAKE 1 TABLET BY MOUTH EVERY 6 HOURS NEEDED FOR PAIN, # 180 tablet, 2 Refills,Maintenance, 01/27/22 9:54:00 EDT, [facility] #[id number], 165, cm, 12/31/21 9:12:00 EDT, Height Start [...] Active 1Per chart review meets GFR criteria Vital Signs Most recent to oldest [Reference Range]: 1 Height 165 cm (02/10/22 2:49 PM) Weight 88.4 kg (02/10/22 2:49 PM) Body Mass Index [18.5-24.99 kg/m2] 32.47 kg/m2 *>HHI* (02/10/22 2:49 PM) Social History Social History Type Response Smoking Status Former smoker, quit more than 30 days ago; Other: smoked in teenage years; entered on: 12/19/21 Sex Patient Care team information Personnel Name: Helga Da Silva MD Address: Address: [address] [place] [id number]
--- OUTSIDE RECORDS SUMMARY | 2022-11-15 09:38 | XMS_ITS | Continuity of Care Document ---
Author Name Unknown Organization [facility] ter Address [address] [place] [id number]- Care Team Providers Care Forming Roll Operator Heavy Duty Name Role Phone Rekha RUIZ, Helga Primary Care Physici an [place] [facility] [place] 05/13/20 - 06/12/[address] [id number] Allergies, Adverse Reactions, Alerts Substance Reaction Severity Status penicillin Rash Active Immunizations Given and Recorded Vaccine Date Status Refusal Reason influenza virus vaccine, inactivated 02/14/20 Give n influenza virus vaccine, inactivated 01/31/19 Give n Medications acetaminophen-HYDROcodone 325 mg-5 mg oral tablet 1 tablet, By Mouth, 2 times a day, PRN for pain, # 30 tablet, 0 Refills, Maintenance, 04/09/20 9:27:00 EST, Tablet, [facility] #[id number], may partial fill, 1 tablet By Mouth 2 times a day,PRN:for pain, 165, cm, 02/14/20 11:17:00 EDT, Height, 90... Start Date: 04/09/20 Status: Ordered Advair 230 mcg-21 mcg Inhaler 2, puffs, Inhalation, 2 times a day, # 12 Gm, Refills 0, Tot. Refills 0, Maintenance, 07/27/19 9:27:00 EDT, Route to Pharmacy Electronically, [id number], [facility] #[id number], 165, cm, 05/04/19 16:35:00 EST, Height, 90... Start Date: 07/27/19 Status: Ordered alendronate 70 mg oral tablet ORAL, TABLET, 0 Refill(s),, 0 Refills, 07/25/18 15:21:00 EDT Start Date: 07/25/18 Status: Ordered Aspirin Low Dose 81 mg oral tablet, chewable ORAL, TABLET, CHEWABLE, 0 Refill(s),, 0 Refills, 07/25/18 15:21:00 EDT Start Date: 07/25/18 Status: Ordered BED RAIL BED RAIL, See [...] EDT, Supply Start Date: 02/14/20 Status: Ordered fluticasone 50 mcg/inh nasal spray NASAL, SUSPENSION, 0 Refill(s),, 0 Refills, 01/31/19 11:46:00 EDT Start Date: 01/31/19 Status: Ordered Freestyle Lite Lancets See Instructions, # 50 each, Refills 2, Tot. Refills 2, Maintenance, Test Sugars once daily DX: E11.9, 11/10/18 14:45:00 EDT, Compound Start Date: 11/10/18 Status: Ordered Freestyle Lite Monitor See Instructions, # 50 each, Refills 2, Tot. Refills 2, Maintenance, Test Sugars once daily DX: E11.9, 11/10/18 14:45:00 EDT, Compound Start Date: 11/10/18 Status: Ordered Freestyle Lite Test Strips See Instructions, # 100 each, Refills 2, Tot. Refills 2, Maintenance, Test Sugars once daily DX: E11.9, 03/27/20 9:30:00 EST, Compound, 165, cm, 02/14/20 11:17:00 EDT, Height, 90.7, kg, 10/22/18 7:28:00 EDT, Dry Weight Start Date: 03/27/20 Status: Ordered gabapentin 300 mg oral capsule 300 mg, 1, capsule, By Mouth, 3 times a day, # 90 capsule, Refills 2, Tot. Refills 2, Maintenance, 02/14/20 11:05:00 EDT, Route to Pharmacy Electronically, [facility] #[id number], 165, cm, 02/14/20 10:49:00 EDT, Height, 90.7, kg, 10/22/18 7:28:00... Start Date: 02/14/20 Stop Date: 05/14/20 Status: Ordered glimepiride 2 mg oral tablet 1 tablet, By Mouth, Daily, # 90 tablet, 0 Refills, Maintenance, 10/22/19 11:19:00 EDT, [facility] #[id number], 165, cm, 05/04/19 16:35:00 EST, Height, 90.7, kg, 10/22/18 7:28:00 EDT, Dry Weight Start Date: 10/22/19 Status: Ordered HAND HELD SHOWER HEAD HAND HELD SHOWER HEAD, See Instructions, # 1 each, Refills 0, Tot. Refills 0, Maintenance, USE DIRECTED DX BACK PAIN, 02/14/20 11:38:00 EDT, Supply Start Date: 02/14/20 Status: Ordered Humira = 40 mg, Subcutaneous Infusion, Once, 0 Refills, Maintenance, 01/24/19 13:19:45 EDT Start Date: 01/24/19 Status: Ordered Lasix 40 mg oral tablet 40 mg, 1, tablet, By Mouth, Daily, # 30 tablet, Refills 0, Maintenance, 08/04/18 17:44:28 EDT Start Date: 08/04/18 Status: Ordered losartan 100 mg oral tablet 1 tablet = 100 mg, By Mouth, Daily, # 90 tablet, 0 Refills, Maintenance, 02/14/20 11:23:00 EDT, Tablet, [facility] #[id number], 165, cm, 02/14/20 11:17:00 EDT, Height, 90.7, kg, 10/22/18 7:28:00EDT, Dry Weight Start Date: 02/14/20 Status: Ordered omeprazole 20 mg oral enteric coated capsule 1 tablet, By Mouth, 2 times a day, # 180 tablet, 0 Refills, Maintenance, 04/22/20 8:43:00 EST, [facility] #[id number], 165, cm, 02/14/20 11:17:00 EDT, Height, 90.7, kg, 10/22/18 7:28:00 EDT, DryWeight Start Date: 04/22/20 Stop Date: 07/21/20 Status: Ordered ProAir HFA 90 mcg/inh inhalation aerosol with adapter 2, puffs, Inhalation, 4 times a day, # 8.5 Gm, Refills 3, Tot. Refills 0, Maintenance, 08/27/19 10:16:00 EDT, Route to Pharmacy Electronically, [id number], [facility] #[id number], 165, cm, 05/04/19 16:35:00 EST, Height,... Start Date: 08/27/19 Status: Ordered Shower Chair See Instructions, # 1 each, Refills 0, Tot. Refills 0, Maintenance, USE DIRECTED DX BACK PAIN, 02/14/20 11:38:00 EDT, Supply Start Date: 02/14/20 Status: Ordered simvastatin 20 mg oral tablet 1, tablet, By Mouth, Daily at bedtime, # 90 tablet, Refills 0, Tot. Refills 0, Maintenance, 10/22/19 11:19:00 EDT, Route to Pharmacy Electronically, [facility] #[id number], 165, cm, 05/04/19 16:35:00 EST, Height, 90.7, kg, 10/22/18 7:28:00 EDT, D... Start Date: 10/22/19 Status: Ordered Spiriva Respimat 1.25 mcg/inh inhalation aerosol See Instructions, INHALE 2 PUFFS BY MOUTH EVERY DAY, # 12 Gm, 0 Refills, Maintenance, [facility] #[id number], 165, cm, 05/04/19 16:35:00 EST, Height, 90.7, kg, 10/22/18 7:28:00 EDT, Dry Weight Start Date: 07/25/19 Status: Ordered tiZANidine 2 mg oral capsule 1 capsule = 2 mg, By Mouth, 3 times a day, PRN as needed for muscle spasm, # 90 capsule, 0 Refills,Maintenance, 07/25/18 15:39:29 EDT, Capsule Start Date: 07/25/18 Stop Date: 08/24/18 Status: Ordered Walker See Instructions, # 1 [...]
--- OUTSIDE RECORDS SUMMARY | 2022-11-15 09:38 | XMS_ITS | Continuity of Care Document ---
Author Name Unknown Organization [facility] Address [address] [place] [address]- Care Team Providers Care Business Process Analyst Name Role Phone Rekha RUIZ, Helga Primary Care Physici an Encounter [facility] [place] Date(s): 10/13/22 - 11/12/22 [facility] [address] [place] [address]- Attending Physician: Roberto Eng Admitting Physician: Admtr, Roberto Referring Physician: Admtr, Ar8 Allergies, Adverse Reactions, Alerts Substance Reaction Severity [...] TIMES DAILY Start Date: 08/22/20 Status: Ordered Aspirin Low Dose 81 mg oral tablet, chewable ORAL, TABLET, CHEWABLE, 0 Refill(s),, 0 Refills, 07/25/18 15:21:00 EDT Start Date: 07/25/18 Status: Ordered atorvastatin 20 mg oral tablet 1 tablet, By Mouth, Daily, # 90 tablet, 1 Refills, Maintenance, 10/18/22 12:21:00 EDT, [facility] #[id number], 165, cm, 10/13/22 12:15:00 EDT, Height Start Date: 10/18/22 Status: Ordered BED RAIL BED RAIL, See [...] 11/23/21 10:23:00 EDT, Route to Pharmacy Electronically, [facility]#[id number], Partial fill upon patient request if the pr... Start Date: 11/23/21 Status: Ordered Dulera 200 mcg-5 mcg/inh inhalation aerosol 2 puffs, Inhalation, 2 times a day, # 13 Gm, 5 Refills, Maintenance, 11/24/20 15:42:00 EDT, [facility] #[id number], 30, 2 puffs Inhalation 2 times a day, 165, cm, 02/14/20 11:17:00 EDT, Height Start Date: 11/24/20 Status: Ordered FREESTYLE LANCETS 100 FREESTYLE LANCETS [...] EDT, Height Start Date: 10/27/20 Status: Ordered furosemide 40 mg oral tablet 40 mg, 1, tablet, By Mouth, Daily, # 30 tablet, Refills 0, Maintenance, 07/06/22 11:42:00 EDT, Partial fill upon patient request if the prescription is for a schedule II opioid drug. Start Date: 07/06/22 Status: Ordered gabapentin 300 mg oral capsule 1, capsule, By Mouth, 3 times a day, # 90 capsule, Refills 5, Maintenance, 09/12/22 20:22:00 EDT, Route to Pharmacy Electronically, [facility] #[id number], 165, cm, 06/11/22 10:52:00 EST, Height Start Date: 09/12/22 Status: Ordered glimepiride 4 mg oral tablet 1 tablet, By Mouth, Daily, # 90 tablet, 1 Refills, Maintenance, 11/03/22 14:12:00 EDT, [facility] #[id number], 165, cm, 10/13/22 12:15:00 EDT, Height Start Date: 11/03/22 Status: Ordered HAND HELD SHOWER HEAD HAND HELD SHOWER HEAD, See Instructions, # 1 each, Refills 0, Tot. Refills 0, Maintenance, USE DIRECTED DX BACK PAIN, 02/14/20 11:38:00 EDT, Supply Start Date: 02/14/20 Status: Ordered hydrALAZINE 50 mg oral tablet 1 tablet = 50 mg, By Mouth, 2 times a day, # 60 tablet, 0 Refills, Maintenance, 10/13/22 12:23:00 EDT, Tablet, Partial fill upon patient request if the prescription is for a schedule II opioid drug. Start Date: 10/13/22 Status: Ordered leflunomide 20 mg oral tablet TAKE 1 TABLET BY MOUTH DAILY Start Date: 08/22/20 Status: Ordered losartan 50 mg oral tablet TAKE 1 TABLET BY MOUTH EVERY DAY Start Date: 10/13/22 Status: Ordered melitonin 3mg tablets melitonin 3mg [...] meal, # 60 capsule, 5 Refills, Maintenance, 07/06/22 10:15:00 EDT, EC Capsule, [facility] #[id number], Partial fill upon patient request if the prescription is for a schedule II opioid drug., 1... Start Date: 07/06/22 Status: Ordered ProAir HFA 90 mcg/inh inhalation aerosol with adapter 2, puffs, Inhalation, 4 times a day, # 8.5 Gm, Refills 2, Tot. Refills 2, Maintenance, 11/25/20 10:01:00 EDT, Route to Pharmacy Electronically, [id number], [facility] #[id number], 165, cm, 02/14/20 11:17:00 EDT, Height Start Date: 11/25/20 Status: Ordered ProAir HFA 90 mcg/inh inhalation aerosol with adapter 2, puffs, Inhalation, 4 times a day, # 8.5 Gm, Refills 0, Tot. Refills 0, Maintenance, 11/25/20 7:29:00 EDT, Route to Pharmacy Electronically, [id number], [facility] #[id number], 165, cm, 02/14/20 11:17:00 EDT, Height Start Date: 11/25/20 Status: Ordered propranolol 20 mg oral tablet 1, tablet, By Mouth, 2 times a day, # 180 tablet, Refills 1, Maintenance, 06/25/22 9:48:00 EST, Route to Pharmacy Electronically, [facility] #[id number], 165, cm, 06/11/22 10:52:00 EST, Height Start Date: 06/25/22 Status: Ordered Shower Chair See Instructions, # 1 each, Refills 0, Tot. Refills 0, Maintenance, USE DIRECTED DX BACK PAIN, 02/14/20 11:38:00 EDT, Supply Start Date: 02/14/20 Status: Ordered Spiriva Respimat 1.25 mcg/inh inhalation aerosol See Instructions, INHALE 2 PUFFS BY MOUTH EVERY DAY, # 12 Gm, 2 Refills, 11/25/20 10:01:00 EDT, [facility] #[id number], 165, cm, 02/14/20 11:17:00 EDT, Height Start Date: 11/25/20 Status: Ordered traMADol 50 mg oral tablet See Instructions, TAKE 1 TABLET BY MOUTH EVERY 6 HOURS NEEDED FOR PAIN, # 180 tablet, 2 Refills,Maintenance, 06/11/22 15:27:00 EST, [facility] #[id number], 165, cm, 06/11/22 10:52:00 EST, Height Start Date: 06/11/22 Status: Ordered Walker See Instructions, # 1 [...] Monoclonal gammopathy of uncertain significance Confirmed Active Neck pain on left side Confirmed Active Obese class I Confirmed Active [...] Care Team Personnel Name: Shayy Camacho Position: [facility] Office Staff Member Role: Lifetime Consulting Physician Name: Helga Da Silva MD Position: [facility] Hospital Medicine Member Role: PCP Address: Address: [address] [place] [address] [place] [address]- Care Team Related Persons Name: TEODORA BHAKTA Address: home [address] [place] [id number]
--- OUTSIDE RECORDS SUMMARY | 2022-11-15 09:39 | XMS_ITS | Continuity of Care Document ---
Author Name Unknown Organization [facility] Address [address] [place] [address]- Care Team Providers Care Cell Technician Name Role Phone Rekha RUIZ, Helga Primary Care Physici an Encounter [facility] Date(s): 11/24/20 - 12/24/20 [facility] [address] [place] [id number]- [place] Allergies, Adverse Reactions, Alerts Substance Reaction Severity [...] 0 Refills, Maintenance, 04/09/20 9:27:00 EST, Tablet, [facility] #[id number], may partial fill, 1 tablet By Mouth 2 times a day,PRN:for pain, 165, cm, 02/14/20 11:17:00 EDT, Height, 90... Start Date: 04/09/20 Status: Ordered alendronate 70 mg oral tablet ORAL, TABLET, 0 Refill(s),, 0 Refills, 07/25/18 15:21:00 EDT Start Date: 07/25/18 Status: Ordered amLODIPine 10 mg oral tablet 1 tablet, By Mouth, Daily, # 30 tablet, 1 Refills, Maintenance, 10/17/20 13:46:00 EDT, [facility] #[id number], 165, cm, 02/14/20 11:17:00 EDT, Height, 90.7, kg, 10/22/18 7:28:00 EDT, Dry Weight Start Date: 10/17/20 Status: Ordered Aspirin Low Dose 81 mg oral tablet, chewable ORAL, TABLET, CHEWABLE, 0 Refill(s),, 0 Refills, 07/25/18 15:21:00 EDT Start Date: 07/25/18 Status: Ordered atorvastatin 20 mg oral tablet 1 tablet, By Mouth, Daily, # 30 tablet, 5 Refills, Maintenance, 11/30/20 15:19:00 EDT, [facility] #[id number], 165, cm, 02/14/20 11:17:00 EDT, Height Start Date: 11/30/20 Status: Ordered BED RAIL BED RAIL, See [...] Gm, 5 Refills, Maintenance, 11/24/20 15:42:00 EDT, [facility] #[id number], 30, 2 puffs Inhalation 2 times a day, 165, cm, 02/14/20 11:17:00 EDT, Height Start Date: 11/24/20 Status: Ordered FeroSul 325 mg oral tablet 1 tablet = 325 mg, By Mouth, Daily, TAKE 1 TABLET BY MOUTH TWICE DAILY, # 30 tablet, 2 Refills, Maintenance, 10/27/20 14:46:00 EDT, Tablet, [facility] #[id number], Partial fill upon patient request if the prescription is for a schedule II opioid... Start Date: 10/27/20 Status: Ordered Freestyle Lite Lancets See Instructions, [...] By Mouth, 3 times a day, # 270 capsule, Refills 0, Route to Pharmacy Electronically, [facility] #[id number], 165, cm, 02/14/20 11:17:00 EDT, Height Start Date: 12/12/20 Status: Ordered glimepiride 4 mg oral tablet 1 tablet, By Mouth, Daily, # 90 tablet, 1 Refills, Maintenance, 11/11/20 15:45:00 EDT, [facility] #[id number], 165, cm, 02/14/20 11:17:00 EDT, Height Start Date: 11/11/20 Status: Ordered HAND HELD SHOWER HEAD HAND [...] 40 mg oral delayed release tablet 1 tablet, By Mouth, 2 times a day, # 180 tablet, 0 Refills, 165, cm, 02/14/20 11:17:00 EDT, Height Start Date: 12/11/20 Status: Ordered ProAir HFA 90 mcg/inh inhalation aerosol with adapter 2, puffs, Inhalation, 4 times a day, # 8.5 Gm, Refills 2, Tot. Refills 2, Maintenance, 11/25/20 10:01:00 EDT, Route to Pharmacy Electronically, [id number], [facility] #[id number], 165, cm, 02/14/20 11:17:00 EDT, Height Start Date: 11/25/20 Status: Ordered ProAir HFA 90 mcg/inh inhalation aerosol with adapter 2, puffs, Inhalation, 4 times a day, # 8.5 Gm, Refills 0, Tot. Refills 0, Maintenance, 11/25/20 7:29:00 EDT, Route to Pharmacy Electronically, [id number], [facility] #[id number], 165, cm, 02/14/20 11:17:00 EDT, Height Start Date: 11/25/20 Status: Ordered Shower Chair See Instructions, # 1 each, Refills 0, Tot. Refills 0, Maintenance, USE DIRECTED DX BACK PAIN, 02/14/20 11:38:00 EDT, Supply Start Date: 02/14/20 Status: Ordered Spiriva Respimat 1.25 mcg/inh inhalation aerosol See Instructions, INHALE 2 PUFFS BY MOUTH EVERY DAY, # 12 Gm, 2 Refills, 11/25/20 10:01:00 EDT, [facility] #[id number], 165, cm, 02/14/20 11:17:00 EDT, Height Start Date: 11/25/20 Status: Ordered traMADol 50 mg oral tablet See Instructions, TAKE 1 TABLET BY MOUTH EVERY 6 HOURS NEEDED FOR PAIN, # 180 tablet, 0 Refills,Maintenance, 11/18/20 22:28:00 EDT, [facility] #[id number], 165, cm, 02/14/20 11:17:00 EDT, Height Start Date: 11/18/20 Status: Ordered Walker See Instructions, # 1 [...]
[2022-11-15] MEDS: Famotidine/PF 20 MG/2 ML VIAL IVPUSH (10:03)
[2022-11-15] MEDS: Lactated Ringers 1,000 ML 100 ML IVCONT (10:05)
[2022-11-15] MEDS: vancomycin HCL 1,500 MG in 0.9 % Sodium Chloride 500 ML 333.33 MG IV (10:05)
[2022-11-15] MEDS: methocarbamoL 750 MG TABLET PO (10:06)
[2022-11-15] MEDS: Gabapentin 300 MG CAPSULE PO ×2 (10:06→20:26)
[2022-11-15 10:17] LABS: Glucose, Whole Blood 154 mg/dL (60-115)
--- NOTE | 2022-11-15 10:45 | MHC.SHP ---
Pre-Procedural Eval Section A Date of Service: 11/15/22 The patient is an INPATIENT: No The History & Physical has been completed within 30 days and I have reviewed it.: No Section B Chief Complaint: Lumbar Disc Herniation Details of Present Illness: Severe back pain leg pain Relevant Family History (Specify if Yes): No Relevant Social History: None Present Medications: see Short Stay Collaborative assessment Medical History: No relevant PMH History of Previous Operations: No relevant previous surgery Allergies: Allergies Allergy/AdvReac Type Severity Reaction Status Date / Time Penicillins [PCN] Allergy Intermediate RASH Verified 06/09/22 14:34 Review of Systems Sugical H&P ROS: Negative: Constitution, Cardiovascular, Respiratory, Neurological, Psychiatric, Hem-Onc, Allergic/Immunologic, Gastrointestinal, Genitourinary, Musculoskeletal, Integumentary, Endocrine and Eyes/Ears/Nose/Throat Exam Surgical H&P Exam: Not Evaluated: HEENT, Not Evaluated: Heart, Not Evaluated: Lungs, Not Evaluated: Extremities, Not Evaluated: Abdomen, Not Evaluated: Skin and Not Evaluated: Neurological Plan Diagnosis/Plan: Unchanged (1) L3-4 oblique lumbar interbody fusion 2) L3-4 discectomy, left side approach) I have reviewed the history and physical and performed a pertinent physical examination on my patient. No changes have occurred unless specified. Time Spent With Patient Time: Total time managing care of this patient today ___10_ minutes.
--- NOTE | 2022-11-15 16:09 | P.OP_ITS ---
Operative Note Operative Note Date of Service: 11/15/22 Narrative: Preop Diagnosis: 1.) L3-4 degenerative disc disease, spondylolisthesis and disc herniation Procedure: 1) L3-4discectomy, arthrodesis and implantation cage through an anterolateral, retroperitoneal approach; posterior instrumented fusion L3-4; allograft 2) lumbar microdiskectomy L3-4, left side approach Consent Informed Consent was obtained for this operation. I have explained the nature, purpose and benefits of the operation. I have discussed the risks and benefit of the operation including possible complications or adverse events with patient/family. Alternative(s) were discussed with the patient with their relative benefits and risks as well as the consequences of not accepting the operation were included in obtaining consent. Surgeon: WINTER GATES MD, PHD Procedure Assisted By: Ulisses Pa Description of Procedure this patient had 2 previous L3-4 lumbar microdiskectomies. She presented in August with a recurrent large disc herniation L3-4 deviating the thecal sac and compressing the left L4 nerve root. This was the 3rd recurrent disc herniation and therefore offered her a fusion on top of a reoperation to remove the recurrent disc herniation. Patient's bone quality is poor and therefore offered her an oblique lumbar interbody fusion co which has the advantage that the cage is sitting on the apophyseal ring and therefore subsidence is less likely to occur. The procedure complications were explained. The patient was consented. The patient was brought to the operating room and endotracheally intubated. The patient was turned in a lateral position with the left side up. Prep and drape was done followed by timeout. A small incision was made in the left lower abdominal quadrant. The muscle fascia was opened after which the 3 muscle layer was split to enter the retroperitoneal space. Dilators were docked in the anterior one third of the L3-4 disc space followed by a retractor. The retractor was opened. The L3-4 disc space was exposed. An annulotomy was done after which an elevator Hooks was used to release the disc material from its endplates and to perforate the contralateral side. A partial discectomy was done. An 7 mm and 8 mm height trial implant was inserted. The discectomy was completed. The endplates were prepared. An 8 x 45 mm with 0 degree lordosis 4 web cage filled with allograft was inserted into the disc space under fluoroscopic guidance. This resulted in good increase in disc height. The retractor was removed. Hemostasis was done. The incision was closed in 2 layers. Steri-Strips used to approximate incision. An OpSite with Tegaderm was used to cover the incision. This marked first part of the procedure. The patient was turned prone on the Anurag spine table. 2C arms were installed for fluoroscopy. Prep and drape was done followed by a second timeout. 2 paramedian incisions were made lateral from the [] pedicle. The muscle fascia was opened after which the muscle layer was split bluntly to expose the posterolateral gutter. The following steps were taken. A pediguard tap was used to create a transpedicular trajectory into the vertebral body. A K wire was placed. A specially designed instrument was advanced over the K wire to decorticate the posterolateral gutter in preparation for the posterolateral fusion. A pedicle screw was advanced over the K wire and the K wire was removed. The steps were done for the bilateral L3 and L4 pedicles. A total of for screws were placed with a diameter of 6.5 x 45 mm. Pedicle screws were connected with 45 mm yonathan bilaterally and locked down with locking caps. The extension towers were removed. The posterolateral gutter was filled with allograft to complete the posterolateral L3-4fusion Hemostasis was done and the incision was closed in 2 layers. Then and the 3rd procedure was started. The mid lumbar incision was made. The paravertebral muscles were released on the left side starts to expose the previous L3-4 diskectomy defect. The L3 and L4 laminotomy wwere extended cranially and caudally. flavum ligament and fibrous tissue was dissected. A plane was created between the scar tissue and the L3-4 facet joint. A partial facetectomy was done in order to approach to allow me to approach diskectomy in a more medial to lateral. I exposed the disc. To perform the annulotomy. I was able to visualize the implanted cage. To my surprise I did not find any large disc herniation. I exposed the L4 nerve root and medial from the nerve root was no herniation present. Long nerve hook could be passed on the thecal sac. More scar tissue was resected and a few fragments of disc herniation but definitely not this size that we were expecting. Hemostasis was done. The incision was closed in 0 5 III 0 Vicryl. Steri-Strips were used to approximate the incisions. An OpSite with Tegaderm was used to cover the incisions. All sponge and needle counts were correct. Patient was extubated and transferred in stable is to recovery room. the procedure was done with a physician's machine operator assistant, inserted pedicle screws, rods and locking caps and performed closure of the incisions. Anesthesia: General Estimated Blood Loss (ml): 45 mL Duration of Surgery: 3 hours Postoperative Plan: Admit to inpatient for observation Complications: None
[2022-11-15] MEDS: HYDROmorphone HCl 0.5 MG/0.5 ML SYRINGE 0.25 MG IVPUSH ×4 (16:55→17:55)
[2022-11-15] MEDS: oxyCODONE HCl Immed Release 5 MG TABLET 10 MG PO ×2 (17:45→21:56)
[2022-11-15] MEDS: Racepinephrine HCL 0.5 ML VIAL.NEB INHALE (18:04)
[2022-11-15] MEDS: 0.9 % Sodium Chloride 1,000 ML 75 ML IVCONT (18:46)
[2022-11-15] MEDS: HYDROmorphone HCl 1 MG/ML SYRINGE IVPUSH ×2 (19:18→23:50)
[2022-11-15 19:32] LABS: Glucose, Whole Blood 229 mg/dL (60-115)
[2022-11-15] MEDS: Insulin Lispro 100 UNIT/ML 3 ML VIAL SUBCUT (20:25)
[2022-11-15] MEDS: Atorvastatin Calcium 20 MG TABLET PO (20:26)
[2022-11-15] MEDS: rOPINIRole HCL 0.5 MG TABLET PO (20:26)
[2022-11-15] MEDS: Omeprazole 20 MG CAPSULE.DR PO (20:26)
[2022-11-15] MEDS: Propranolol HCL 20 MG TABLET PO (20:26)
[2022-11-15] MEDS: hydrALAZINE HCl 50 MG TABLET PO (20:26)
[2022-11-15] MEDS: Ketorolac Tromethamine 15 MG/ML VIAL IVPUSH (21:55)
[2022-11-15] MEDS: Acetaminophen 1,000 MG/100 ML PIGGYBACK 400 MG IV (21:59)
[2022-11-16] VITALS (9 sets, daily range): BP systolic 114–144; BP diastolic 55–85; PULSE 81–104; RESP 17–20; TEMP 36–36.7; O2SAT 88–99
[2022-11-16] MEDS: vancomycin HCL 1,000 MG in 0.9 % Sodium Chloride 250 ML 270 MG IV
[2022-11-16] MEDS: Acetaminophen 1,000 MG/100 ML PIGGYBACK 400 MG IV ×4 (04:28→22:20)
[2022-11-16] MEDS: Ketorolac Tromethamine 15 MG/ML VIAL IVPUSH ×4 (04:29→22:19)
--- NOTE | 2022-11-16 07:37 | PHA.MEDREC ---
Pharmacy Consult ? Medication Reconciliation Pharmacy has completed the medication reconciliation.
[2022-11-16 07:59] LABS: Glucose, Whole Blood 131 mg/dL (60-115)
--- NOTE | 2022-11-16 08:15 | HO.NEURO.PN ---
Neurosurgery Operative Note Date of Service: 11/16/22 Narrative: POD: 1 Procedure: (1) L3-4 oblique lumbar interbody fusion (2)?L3-4 discectomy, left side approach Patient was seen in bed on -. She reports she she has not yet been up walking around, but she is otherwise doing well. She will be seeing PT today before discharge. She feels her symptoms are much better than pre-operatively, and reports no radicular symptoms. She does report mild back pain, with good control with pain medications. She is voiding well, and is tolerating her diet. Afebrile, vital signs stable. Slightly reduced strength in L illiopsaos, likely due to surgical approach. Full strength in distal extremities. Back and flank dressings have some staining without signs of hematoma. No active sanguineous drainage. Area is dry. Plan: Patient will likely need discharge to rehab due to de-conditioning. She was seen at bedside with Dr. Salomon.
--- NOTE | 2022-11-16 08:23 | PM.DS ---
DS: Providers Provider Date of Service: 11/16/22 Date of admission: 11/15/22 09:31 Primary care physician: Helga Da Silva MD DS: Diagnosis Discharge Diagnosis (1) Lumbar radiculopathy: Status: Acute DS: Summary Hospital Course Hospital Course: Patient admitted for elective surgery, at L3-4 OLIF, with microdiskectomy. Patient underwent procedure without complication. Brought to the PACU recovered anesthesia, brought to the nursing floor. Surgical site dressings are clean dry and intact. She is tolerating diet, voiding on her own without a martin, pain is well controlled, she is neurologically intact. She has not been up to ambulate yet, and will be seeing PT today to assist with return to activity. She will likely need discharge to rehab, pending PT evaluation. Time Spent with Patient Time attestation: Total time managing care of this patient today ____ minutes. Discharge coordination time: Less than 30 minutes Quality: Safe Use of Opioids Does Pt have an Active Cancer Diagnosis on the Problem List?: No Quality: Stroke Does the patient have a stroke diagnosis?: No Physical Exam Vital Signs: Vital Signs: Last Vital Signs Temp 97.1 F 11/16/22 07:56 Pulse 91 11/16/22 07:56 Resp 18 11/16/22 07:56 BP 134/56 L 11/16/22 07:56 Pulse Ox 94 11/16/22 07:56 O2 Del Method Room Air 11/16/22 07:56 O2 Flow Rate 2 11/16/22 03:59 BMI result Body Mass Index 34.5 DS: Data Data Completed and Pending Labs on day of discharge: Laboratory Results - last 24 hr 11/15/22 11/15/22 11/16/22 10:11 19:26 07:53 POC Glucose 154 H 229 H 131 H Discharge Plan Discharge Anticipated Discharge Date/Time: 11/16/22 08:29 Patient Disposition: Xfer Inpatient Rehab Fac Discharge Diagnosis: (1) L3-4 oblique lumbar interbody fusion (2) L3-4 discectomy, left side approach Referrals: Yosi Da Silva MD [Primary Care Provider] - 1 Week Discharge Medications: Continued Actemra 162 mg/0.9 mL syringe 162 mg subcut Q2W Qty: 1.8 3RF leflunomide 20 mg tablet 20 mg PO DAILY Qty: 90 1RF ropinirole 0.5 mg tablet 0.5 mg PO TID Qty: 270 0RF Breo Ellipta 100-25 mcg/dose blister with device 1 inh inhalation DAILY albuterol sulfate 90 mcg/actuation aerosol powdr breath activated 2 inh inhalation Q4-6H PRN (Reason: Shortness Of Breath) losartan 50 mg tablet 50 mg PO DAILY acetaminophen [Tylenol Arthritis Pain] 650 mg tablet extended release 650 mg PO Q12H PRN (Reason: Pain) omeprazole magnesium [Prilosec OTC] 20 mg tablet,delayed release (DR/EC) 20 mg PO BID tramadol 50 mg tablet 50 mg PO Q8H PRN (Reason: Pain) atorvastatin 20 mg tablet 20 mg PO BEDTIME glimepiride 4 mg tablet 4 mg PO DAILY hydralazine 50 mg tablet 50 mg PO BID gabapentin 300 mg capsule 300 mg PO TID propranolol 20 mg tablet 20 mg PO BID nifedipine 60 mg tablet extended release 60 mg PO DAILY furosemide 40 mg tablet 40 mg PO DAILY docusate sodium 100 mg capsule 100 mg PO BID PRN (Reason: Constipation) Discharge Orders: Discharge Order (Routine); Ordered 11/16/22 Ordered By: Asael Engel Diet: Advance to usual diet Activity on Discharge: As tolerated Stand Alone Forms: Patient Portal Discharge page Activity Restrictions/Additional Instructions: After your spinal surgery we ask you to observe the following restrictions/guidelines: Activity: It is normal to feel some discomfort as you increase your activity, but that will improve with time. We ask you avoid heavy lifting or acitivities that cause pain. As a general rule, 8lbs is a safe limit for lifting right after surgery. Walk as much as you feel comfortable but not to exhaustion. You will feel extra tired the first few days after surgery. Stay well hydrated. It is OK to walk up and down stairs You may return to driving when you are off narcotics (such as vicodin, oxycodone, dilaudid, etc), and you are back to normal functional capacity. If you have any concerns please check with office before driving. Return to work is specific to each patient and each surgery, so please speak with your doctor/PA at first follow up. Please bring paperwork such as FMLA at that time if you need it filled out. Medications: We will give you a short supply of narcotics after surgery (usually one weeks worth). If you need more please call the office but do not use more than prescribed. You will need to give our office 48 hours notice if you need narcotics refilled and we do not fill narcotics on weekends or evenings. If you are on a narcotic, it is a good idea to take a stool softener such as colace or senna to avoid constipation If you take blood thinner such as aspirin, Plavix, Coumadin, Effient, Eliquis etc for conditions such as Afib, DVT, Pulmonary embolus, coronary disease, stents etc please speak with your surgeon about specific details as to when you can resume these medications. You can resume NSAIDs on post op day 1 (eg: Motrin, Naproxen, etc). Follow up: Please call the office, , after surgery to arrange a 3 week follow up for wound check. Wound Care: You may remove your dressing on the first day after surgery. You may leave open to air. Please do not remove the steri strips underneath. they will fall off on their own in one week. IT IS NORMAL FOR THE WOUND TO OOZE OR BE BLOODY FOR A FEW DAYS AFTER SURGERY. IF THIS HAPPENS JUST PLACE NEW DRESSING OVER IT TO AVOID STAINING CLOTHES. You may shower on post op day # 1 We ask that you do not let the water soak the wound. If it does get wet, just towel dry lightly. Please do not scrub your incision or place any type of chemical/ointment on the wound. No tub baths, pools or jacuzzis for one month. If you have any leaking or redness from your wound, or fevers, please call office Care Plan Goals: return to normal activity as tolerated Health Concerns: none Plan of Treatment: F/U in outpatient office in 3 weeks Assessment: stable
[2022-11-16] MEDS: Fluticasone/Vilanterol 100/25 BLST.W.DEV 1 PUFF INHALE (08:30)
[2022-11-16] MEDS: 0.9 % Sodium Chloride 1,000 ML 75 ML IVCONT (08:45)
[2022-11-16] MEDS: Furosemide 40 MG TABLET PO (08:46)
[2022-11-16] MEDS: Losartan Potassium 50 MG TABLET PO (08:46)
[2022-11-16] MEDS: hydrALAZINE HCl 50 MG TABLET PO ×2 (08:46→20:22)
[2022-11-16] MEDS: Omeprazole 20 MG CAPSULE.DR PO ×2 (08:46→20:22)
[2022-11-16] MEDS: rOPINIRole HCL 0.5 MG TABLET PO ×3 (08:46→20:21)
[2022-11-16] MEDS: NIFEdipine ER 60 MG TAB.ER.24 PO (08:46)
[2022-11-16] MEDS: Propranolol HCL 20 MG TABLET PO ×2 (08:46→20:21)
[2022-11-16] MEDS: Gabapentin 300 MG CAPSULE PO ×3 (08:46→20:22)
[2022-11-16] MEDS: glipiZIDE 10 MG TABLET PO (08:46)
--- NOTE | 2022-11-16 11:04 | HO.POSTANES ---
Post Anesthesia Evaluation Post Anesthesia Evaluation Date of Service: 11/16/22 Vital Signs: Vital Signs Temp Pulse Resp BP Pulse Ox O2 Del Method O2 Flow Rate 11/16/22 09:39 104 H 11/16/22 08:31 104 H 20 11/16/22 07:56 97.1 F 91 18 134/56 L 94 Room Air 11/16/22 03:59 96.8 F 90 18 144/65 H 97 Nasal Cannula 2 11/15/22 23:54 96.8 F 89 16 140/63 H 99 Nasal Cannula 2 Anesthesia: General Endotracheal-GETA Mental Status: Awake Pain Control: Satisfactory Nausea/Vomiting: None Hydration: Adequate Anesthesia-Related Issues: No Anes. Related Issues Comments: Being weaned off supp oxygen. Recommended aggressive IS.
--- NOTE | 2022-11-16 11:06 | MHC.CM.PN ---
Addendum entered by Nidia Tubbs 11/16/22 15:40: DP: PT HAS BEEN MEDICALLY CLEARED FOR DC TO STR. PT/SON/HCP HAVE ACCEPTED [facility] PENDING AUTH. AWAITING INSURANCE APPROVAL. Original Note: [facility] DELIVERED LIVES ALONE BUT HAS CLOSE SUPPORT FROM FAMILY. USES [facility] FOR MOBILITY. +HCP, PLACED ON CHART. PCP DR. MALLOY. P.T. HAS RECOMMENDED STR, REFERRALS SENT. PT/SON FIRST CHOICE IS [facility]. CM WILL CONTINUE TO FOLLOW.
[2022-11-16 11:45] LABS: Glucose, Whole Blood 187 mg/dL (60-115)
[2022-11-16] MEDS: Insulin Lispro 100 UNIT/ML 3 ML VIAL SUBCUT ×2 (11:54→20:29)
[2022-11-16 16:09] LABS: Glucose, Whole Blood 113 mg/dL (60-115)
[2022-11-16] MEDS: Atorvastatin Calcium 20 MG TABLET PO (20:21)
[2022-11-16] MEDS: Docusate Sodium 100 MG CAPSULE PO (20:29)
[2022-11-16 20:32] LABS: Glucose, Whole Blood 183 mg/dL (60-115)
[2022-11-16] MEDS: Cyclobenzaprine HCl 5 MG TABLET PO (22:28)
[2022-11-17] MEDS: 0.9 % Sodium Chloride 1,000 ML 75 ML IVCONT (00:52)
[2022-11-17 03:05] VITALS: BP 133/64; PULSE 103; RESP 18; TEMP 36.5; O2SAT 93
[2022-11-17] MEDS: oxyCODONE HCl Immed Release 5 MG TABLET 10 MG PO ×2 (03:15→08:42)
[2022-11-17] MEDS: Ketorolac Tromethamine 15 MG/ML VIAL IVPUSH ×2 (04:15→10:17)
[2022-11-17] MEDS: Acetaminophen 1,000 MG/100 ML PIGGYBACK 400 MG IV ×2 (04:18→10:16)
[2022-11-17 07:27] LABS: Glucose, Whole Blood 117 mg/dL (60-115)
[2022-11-17 07:29] VITALS: BP 124/60; PULSE 106; RESP 18; TEMP 36.4; O2SAT 98
[2022-11-17 08:40] VITALS: PULSE 106; RESP 18; O2SAT 95
[2022-11-17] MEDS: Fluticasone/Vilanterol 100/25 BLST.W.DEV 1 PUFF INHALE (08:40)
[2022-11-17] MEDS: Furosemide 40 MG TABLET PO (08:42)
[2022-11-17] MEDS: hydrALAZINE HCl 50 MG TABLET PO (08:42)
[2022-11-17] MEDS: Omeprazole 20 MG CAPSULE.DR PO (08:42)
[2022-11-17] MEDS: NIFEdipine ER 60 MG TAB.ER.24 PO (08:43)
[2022-11-17] MEDS: Propranolol HCL 20 MG TABLET PO (08:43)
[2022-11-17] MEDS: Losartan Potassium 50 MG TABLET PO (08:43)
[2022-11-17] MEDS: Gabapentin 300 MG CAPSULE PO (08:43)
[2022-11-17] MEDS: rOPINIRole HCL 0.5 MG TABLET PO (08:43)
[2022-11-17] MEDS: glipiZIDE 10 MG TABLET PO (08:43)
--- NOTE | 2022-11-17 10:25 | MHC.CM.PN ---
DP: PT HAS BEEN APPROVED FOR A ASSISTED STAY AT [facility] VIA [employer], DOES NOT MEET SKILLED CRITERIA VIA JANNIE AT [facility]. SON MADE AWARE AND APPEALS # PROVIDED VIA [employer]. ([phone]) SON/PT AGREEABLE TO ASSISTED STAY BEFORE GOING HOME. RN AWARE. TRANSPORT BOOKED FOR 12:30 VIA [employer].
[2022-11-17 11:37] VITALS: BP 126/58; PULSE 90; RESP 16; TEMP 36.2; O2SAT 94
[2022-11-17 11:37] LABS: Glucose, Whole Blood 168 mg/dL (60-115)
[2022-11-17] MEDS: Insulin Lispro 100 UNIT/ML 3 ML VIAL SUBCUT (11:38)
== END 2022-11-17 13:08 | DRG 460 ==
LOC: HO.SSSA 09:36 → HO.S3 17:13
PROVIDERS: Neurological Surgery; Admitting Provider Physician Assistant; PCP Internal Medicine; Visit Provider Physician Assistant
PROC: 0SG00A0 Fusion of Lumbar Vertebral Joint with Interbody Fusion Device, Anterior Approach, Anterior Column, Open Approach (ICD-10-PCS; principal; 2022-11-15 11:00)
DX: M43.16 Spondylolisthesis, lumbar region (principal); M51.36 Other intervertebral disc degeneration, lumbar region; J45.909 Unspecified asthma, uncomplicated; E78.00 Pure hypercholesterolemia, unspecified; I10 Essential (primary) hypertension; E11.9 Type 2 diabetes mellitus without complications; M05.9 Rheumatoid arthritis with rheumatoid factor, unspecified; Z88.0 Allergy status to penicillin; Z79.51 Long term (current) use of inhaled steroids; Z79.84 Long term (current) use of oral hypoglycemic drugs; Z79.899 Other long term (current) drug therapy
CPT/HCPCS: 82947; 97162; C1713; J0131; J1100; J1170; J1885; J2370; J2371; J2405; J3010; J3370; J3371; L8699

== ENCOUNTER → 2022-11-15 09:31 | Outpatient (BNV) | payer OTHER, SELFPAY | PROVIDERS: Admitting Provider Physician Assistant; PCP Internal Medicine; Visit Provider Neurological Surgery | DX: M51.36 Other intervertebral disc degeneration, lumbar region (principal); M43.16 Spondylolisthesis, lumbar region | CPT/HCPCS: 20930; 22558; 22612; 22840; 22853; 63047 ==

== ENCOUNTER 2022-12-07 15:27 | Outpatient (AMB) | payer OTHER, SELFPAY ==
--- NOTE | 2022-12-07 15:57 | A.SPINEOV_ITS ---
Intake Intake Visit Reasons: 3 weeks post op Intake Note: Ms. Mcclellan is here today for her 1st post-op visit. Polysomnographer Required: Yes Allergies Penicillins [PCN] Allergy (Intermediate, Verified 06/09/22 14:34) RASH Assessment & Plan Assessment & Plan (1) Status post lumbar and lumbosacral fusion by anterior technique: Code(s): Z98.1 - Arthrodesis status Plan Dear colleague, On 12/08/2022 I saw for 1st postoperative visit Kelly Mcclellan. She underwent an oblique lumbar interbody fusion L3-4 to address L3-4 instability and a L3-4 microdiskectomy approximately 3 weeks ago. She had a terrible experience at the rehab. In the meantime, she was also treated for a pneumonia. Today states her back is hurting and she has intermittent left leg pain. She also complains of painful surgical site in the left lower abdomen. On exam Coumadin incisions are healed. The left lower abdomen is painful to touch but there are no signs of infection. We went over the intraoperative x-rays and I showed her the instrumentation. I would like to follow up in 6 weeks with a standing x-ray. We will reassess her symptoms at that time. Thank you for letting me take care of your patient. Do not hesitate to call me with any questions or concerns. New Salomon MD, PhD Spine Fellowship Trained Neurosurgeon Director, [facility] Orders: Orders XR lumbar spine 4V min 01/18/23 Z98.1 - Arthrodesis status Coding Level of Care Code Global (23075) Diagnoses Status post lumbar and lumbosacral fusion by anterior technique Z98.1
== END 2022-12-07 16:31 | disposition home or self-care (01) ==
PROVIDERS: PCP Internal Medicine; Visit Provider Neurological Surgery
DX: Z98.1 Arthrodesis status (principal)
CPT/HCPCS: 99024

== ENCOUNTER → 2022-12-07 15:27 | Outpatient (BNVA) | payer OTHER, SELFPAY | PROVIDERS: PCP Internal Medicine; Visit Provider Neurological Surgery ==

== ENCOUNTER 2023-01-18 10:27 | Outpatient (REF) | payer OTHER, SELFPAY | END 2023-01-18 10:28 | disposition home or self-care (01) | LOC: HO.HOSX 10:27 | PROVIDERS: Visit Provider Neurological Surgery | DX: Z48.89 Encounter for other specified surgical aftercare (principal); Z98.1 Arthrodesis status | CPT/HCPCS: 72110; 99212 ==

== ENCOUNTER 2023-01-18 13:15 | Outpatient (AMB) | payer OTHER, SELFPAY ==
--- NOTE | 2023-01-18 13:36 | A.SPINEOV_ITS ---
Intake Intake Visit Reasons: 2nd post op/with xrays Intake Note: Ms. Mcclellan is here today for her 2nd post-op visit. Set Staff Fitter Required: No Allergies Penicillins [PCN] Allergy (Intermediate, Verified 06/09/22 14:34) RASH Assessment & Plan Assessment & Plan (1) Status post lumbar and lumbosacral fusion by anterior technique: Code(s): Z98.1 - Arthrodesis status Plan On 01/18/23 I saw for her 2nd postoperative visit Kelly Mcclellan. She underwent an oblique lumbar interbody fusion of L3-4 to address L3-4 instability and a L3-4 microdiskectomy. Unfortuantely she has had a complicated postoperative course. She initially had a very poor experience a rehab, and continued to have pain in her left oblique incision site, and left lower leg with radiation from her low back. She was shown her previous fusion instrumentation during her last visit and we reviewed another set of x-rays d uring this visit which show stable posterior instrumentation and cage placement of L3-4. She reports that on Tuesday she had so much pain in her left side near incision site that she went to the emergency department [facility] for evaluation. She reports that they completed CT scan imaging and told her that she has a fluid collection underneath her incision site with abdominal herniation. She states that they did not offer her any interventions for this issue because she told them she had a follow up with Dr. Salomon office today (01/18/23). She states they deferred treatment of this issue to us. Unfortunately she does not have any paperwork from the ED with her to help provide some clarity to the situation. On exam the left lateral incision site is clean and well healed. When sitting she does have a large lateral bulge under the skin on the left side. This seems to reduce on its own when she stands. She was accompanied by her son to this visit who agreed to obtain the CT scan with contrast from [facility] to drop off at our office. The tentative plan will be to obtain to the CT scan and evaluate for any evidence of herniation. If there is evidence herniation we can refer to our general surgery team at [facility] to address the incision site herniation. This plan was discussed with Dr. Salomon who evaluated the patient with me and is in agreement. Total amount of time spent in this visit was 35 minutes in discussion of symptoms,X-ray imaging results, examination, and subsequent plan of care Asael Salomon MD,PhD [facility] Orders: Orders XR lumbar spine 4V min Today Z98.1 - Arthrodesis status Coding Level of Care Code Global (42664) Diagnoses Status post lumbar and lumbosacral fusion by anterior technique Z98.1
== END 2023-01-18 14:11 | disposition home or self-care (01) ==
PROVIDERS: PCP Internal Medicine; Visit Provider Physician Assistant
DX: Z98.1 Arthrodesis status (principal)
CPT/HCPCS: 99024

== ENCOUNTER 2023-02-15 11:14 | Outpatient (AMB) | payer OTHER, SELFPAY ==
--- NOTE | 2023-02-15 11:16 | A.OFFVIS_ITS ---
Intake Vital Signs 02/15/23 11:19 Weight 200 lb BP 132/72 Blood Pressure Location Lt brachial Position Sitting Pulse 72 Intake Visit Reasons: Incisional hernia Intake Note: Patient referred for incisional hernia. Has been present for 2m. C/o pain on abd that started since back surgery. Production Clerk Required: No Accompanied by: son Nick Allergies Penicillins [PCN] Allergy (Intermediate, Verified 02/15/23 11:23) RASH HPI HPI Comments History of Present Illness Details Patient presents with her son. She is status post back surgery were she has sustained a 5 mm port left flank incisional hernia. Has markedly increased in size over the last few weeks time. Patient wished to have this repaired Patient is a CT scan which demonstrated this hernia as well as an umbilical hernia. Patient is otherwise tolerating a diet. Having regular bowel habits. Chart was reviewed patient evaluated. CT scan was also reviewed [facility] Medical History Back pain Arthritis Osteoporosis HTN (hypertension) Elevated cholesterol Asthma Numbness Diabetes GERD (gastroesophageal reflux disease) Hiatal hernia Proteinuria Cataract Seropositive rheumatoid arthritis Surgical History (Updated 02/15/23 @ 11:37 by Emmanuel Thompson MD) Hx of bilateral cataract extraction History of lumbar surgery Family History Brother HTN (hypertension) Diabetes Sister Diabetes Rheumatoid arthritis Social History (Updated 11/15/22 @ 19:29 by Annie Hearn RN) Household Members: Family and None Housing: House Are you a primary childcare administrator to a significant other at home: No Do you presently have visiting nurse or other home services: Yes Alcohol intake: never Patient Tobacco Use Status: Never used Tobacco service: No Physical Exam Vital Signs: Last Vital Signs Pulse 72 02/15/23 11:19 BP 132/72 02/15/23 11:19 Chest Other: Chest breath sounds bilaterally, HS 1 in 2 GI Other: Patient was examined both supine and standing with Valsalva. Approximately 3 cm incarcerated umbilical hernia. Corpulent abdomen, benign. Very large left flank port site incisional hernia. Assessment & Plan Assessment & Plan (1) Incisional hernia: Code(s): K43.2 - Incisional hernia without obstruction or gangrene (2) Umbilical hernia: Code(s): K42.9 - Umbilical hernia without obstruction or gangrene Plan Risks, benefits, alternatives of both incisional hernia repair and umbilical hernia repair open technique with mesh for each were reviewed with the patient and her son and included but not limited to bleeding, infection, recurrence, numbness, pain, scarring and the patient wished to proceed. All questions were answered. Arrangements were made for this. Coding Level of Care Code New Pt Level 5 (96488) Diagnoses Incisional hernia K43.2 Umbilical hernia K42.9
[2023-02-15 11:19] VITALS: BP 132/72; PULSE 72
== END 2023-02-15 11:32 | disposition home or self-care (01) ==
PROVIDERS: PCP Internal Medicine; Referring Provider Physician Assistant; Visit Provider Surgery
DX: K43.2 Incisional hernia without obstruction or gangrene (principal); K42.9 Umbilical hernia without obstruction or gangrene
CPT/HCPCS: 99204

== ENCOUNTER → 2023-02-15 11:14 | Outpatient (BNVA) | payer OTHER, SELFPAY | PROVIDERS: PCP Internal Medicine; Referring Provider Physician Assistant; Visit Provider Surgery | DX: K43.2 Incisional hernia without obstruction or gangrene (principal); K42.9 Umbilical hernia without obstruction or gangrene | CPT/HCPCS: 99202 ==

== ENCOUNTER 2023-02-17 12:45 | Outpatient (AMB) | payer OTHER, SELFPAY ==
--- NOTE | 2023-02-17 12:46 | A.OFFVIS_ITS ---
Intake Vital Signs 02/17/23 12:48 Height 5 ft 4 in Weight 199 lb 4 oz BMI 34.2 BP 148/76 H Blood Pressure Location Rt brachial Position Sitting Respiration 17 Pulse 95 Pulse Source Pulse Oximeter Pulse Oximetry (%) 94 Oxygen Delivery Method Room Air Intake Visit Reasons: Former pt of PNS. last seen 2020 f/u RLS-confirmed Intake Note: Pt presents to office for evaluation for restless leg syndrome. Pt is here with her son Sharon, who reports she has gotten worse since her last visit with Dr. Rasmussen. These are worse at night, coupled with severe leg cramps. Her son reports shes had 4 lumbar surgeries in the past year, and is going in for a hernia repair on 03/03/23 for an incisional hernia developed after these lolita geries. Fashion Marketer Required: No Allergies Penicillins [PCN] Allergy (Intermediate, Verified 02/17/23 12:47) RASH Medication List - Last Reconciled 02/17/23 by Saray Rasmussen MD acetaminophen ER (Tylenol Arthritis Pain) 650 mg PO Q12H PRN albuterol sulfate 90 mcg/actuation 2 inhalations inhalation Q4-6H PRN atorvastatin 20 mg PO BEDTIME docusate sodium 100 mg PO BID PRN fluticasone furoate-vilanterol 100-25 mcg/dose (Breo Ellipta) 1 inh inhalation DAILY furosemide 40 mg PO DAILY gabapentin 300 mg PO TID glimepiride 4 mg PO DAILY hydralazine 50 mg PO BID leflunomide 20 mg PO DAILY losartan 50 mg PO DAILY nifedipine ER 60 mg PO DAILY omeprazole magnesium (Prilosec OTC) 20 mg PO BID oxycodone 5 mg PO BID PRN propranolol 20 mg PO BID ropinirole 0.5 mg PO TID ropinirole ER 2 mg PO BEDTIME tocilizumab (Actemra) 162 mg (0.9 mL) subcut Q2W tramadol 50 mg PO Q8H PRN HPI HPI Comments History of Present Illness Details 77y/o female comes for follow up of rest less legs syndrome. She was seen 2 years ago for Restless legs. since her last visit she had 4 back surgeries but still persistent pain. She takes ropinirole 0.5 mg tid and gabapentin 300mg tid. she has trouble falling asleep , snoring and frequent arousals . she also has peripheral neuropathy related to dBashir hargrove [facility] Medical History (Updated 02/17/23 @ 13:10 by Saray Rasmussen MD) Hypersomnia Snoring Restless legs syndrome (RLS) Back pain Arthritis Osteoporosis HTN (hypertension) Elevated cholesterol Asthma Numbness Diabetes GERD (gastroesophageal reflux disease) Hiatal hernia Proteinuria Cataract Seropositive rheumatoid arthritis Surgical History Hx of bilateral cataract extraction History of lumbar surgery Family History Brother HTN (hypertension) Diabetes Sister Diabetes Rheumatoid arthritis Social History Household Members: Family and None Housing: House Are you a primary healthcare administrative assistant to a significant other at home: No Do you presently have visiting nurse or other home services: Yes Alcohol intake: never Patient Tobacco Use Status: Never used Tobacco service: No Physical Exam Vital Signs: Last Vital Signs Pulse 95 02/17/23 12:48 Resp 17 02/17/23 12:48 BP 148/76 H 02/17/23 12:48 Pulse Ox 94 02/17/23 12:48 Oxygen Delivery Method Room Air 02/17/23 12:48 BMI result Body Mass Index 34.2 Const General: cooperative Nutritional Appearance: obese Orientation/consciousness: patient oriented x3 Neuro Other: walks with walker - antalgic General: patient oriented x3, tone normal and moves all extremities Cognition (Neuro): normal cognition Gait exam (Neuro): Antalgic gait present Motor exam (neuro): Normal motor muscle tone present throughout Deep tendon reflexes (DTR's): Right triceps reflex intensity grade: 1+, Left triceps reflex intensity grade: 1+, Rt Biceps (C5, C6): 0, Left biceps reflex intensity grade: 0, Right brachioradialis reflex intensity grade: 0, Left brachioradialis reflex intensity grade: 0, Right patellar reflex intensity grade: 0 and Left patellar reflex intensity grade: 0 Coordination: [id number] test normal Assessment & Plan Assessment & Plan (1) Restless legs syndrome (RLS): Comment: poorly controlled Code(s): G25.81 - Restless legs syndrome (2) Snoring: Code(s): R06.83 - Snoring Plan Home sleep study to r/o sleep apnea. continue ropinirole 0.5 mg tid and i will trial her on ropinirole XR 2mg qhs for better control of symptoms Increase gabapentin 300mg qam qnoon and 2 tabs at bed time Orders: Orders RT home sleep study Today G25.81 - Restless legs syndrome, G47.10 - Hypersomnia, unspecified, R06.83 - Snoring Medications: New ropinirole ER 2 mg PO BEDTIME 30 tabs 6RF Refilled ropinirole 0.5 mg PO TID 270 tabs 0RF Coding Level of Care Code Est Pt Level 4 (48645) Diagnoses Restless legs syndrome (RLS) G25.81 Snoring R06.83
[2023-02-17 12:48] VITALS: BP 148/76; PULSE 95; RESP 17; O2SAT 94; BMI 34.2
== END 2023-02-17 13:14 | disposition home or self-care (01) ==
PROVIDERS: PCP Internal Medicine; Visit Provider Psychiatry & Neurology Neurology
DX: G25.81 Restless legs syndrome (principal); R06.83 Snoring
CPT/HCPCS: 99214

== ENCOUNTER → 2023-02-17 12:45 | Outpatient (BNVA) | payer OTHER, SELFPAY | PROVIDERS: PCP Internal Medicine; Visit Provider Psychiatry & Neurology Neurology | DX: G25.81 Restless legs syndrome (principal); R06.83 Snoring | CPT/HCPCS: 99212 ==

== ENCOUNTER 2023-03-01 15:44 | Outpatient (REF) | payer OTHER, SELFPAY ==
[2023-03-01 15:58] LABS: MANUAL DIFF FLAG NO
[2023-03-01 17:10] LABS: Basophils Absolute Auto 0.1 X10*3/uL (0.0-0.2); Eosinophils Absolute Auto 0.4 X10*3/uL (0.0-0.4); Eosinophils Percent Auto 6.3 % (0-4); Hematocrit 31.6 % (37.0-47.0); Hemoglobin 9.5 g/dl (12.0-16.0); Imm Gran Abs Auto 0.06 X10*3/uL (0.00-0.03); Lymphocytes Absolute Auto 1.2 X10*3/uL (1.2-4.9); Lymphocytes Percent Auto 19.5 % (20-40); Mean Corpuscular HGB Conc 30.1 g/dl (31.0-35.0); Mean Corpuscular Hemoglobin 22.4 pg (27.0-33.0); Mean Corpuscular Volume 74.4 fL (80.0-98.0); Mean Platelet Volume 10.9 fL (9.4-12.3); Monocytes Absolute Auto 0.9 X10*3/uL (0.1-1.2); Monocytes Percent Auto 14.1 % (2-11); Neutrophils Absolute Auto 3.6 x10*3/uL (2.0-8.3); Neutrophils Percent Auto 58.1 % (45-73); Platelet Count 276 X10*3/uL (160-400); Red Blood Count 4.25 X10*6/uL (4.20-5.50); Red Cell Distribution Width 19.9 % (11.0-16.0); White Blood Count 6.2 X10*3/uL (4.8-10.8)
[2023-03-01 17:33] LABS: Alanine Aminotransferase 14 U/L (0-31); Albumin Level 3.8 g/dL (3.5-5.0); Alkaline Phosphatase 98 U/L (39-117); Anion Gap 14 (12-20); Aspartate Amino Transferase 20 U/L (5-31); Bilirubin Total 0.3 mg/dL (0.0-1.0); Blood Urea Nitrogen 43 mg/dL (9-16); C Reactive Protein 0.24 mg/dL (< or = 0.50); Calcium 8.8 mg/dL (8.4-10.2); Carbon Dioxide 25 mmol/L (22-29); Chloride 108 mmol/L (96-108); Estimated Glomerular Filt Rate 37; Glucose Random 144 mg/dL (60-115); Potassium 4.9 mmol/L (3.3-5.1); Sodium 142 mmol/L (135-145)
[2023-03-01 18:03] LABS: Erythrocyte Sedimentation Rate 28 MM/HR (0-20)
== END 2023-03-01 15:45 | disposition home or self-care (01) ==
LOC: HO.LAB 15:44
PROVIDERS: PCP Internal Medicine; Visit Provider Student in an Organized Health Care Education/Training Program
DX: Z79.899 Other long term (current) drug therapy (principal)
CPT/HCPCS: 36415; 80053; 85025; 85652; 86140

== ENCOUNTER 2023-03-03 07:12 | Day surgery (SDC) | payer OTHER, SELFPAY ==
--- NOTE | 2023-03-01 13:09 | MHC.SHP ---
Pre-Procedural Eval Section A Date of Service: 03/01/23 The patient is an INPATIENT: No Changes since office visit: No Cold of Flu in the past 2 weeks, No New Medical Problems, No Changes in Medication and No Patient answered all questions The History & Physical has been completed within 30 days and I have reviewed it.: Yes Section B Chief Complaint: incisional and umbilical hernia repair Allergies: Allergies Allergy/AdvReac Type Severity Reaction Status Date / Time Penicillins [PCN] Allergy Intermediate RASH Verified 02/17/23 12:47 Plan I have reviewed the history and physical and performed a pertinent physical examination on my patient. No changes have occurred unless specified. Time Spent With Patient Time: Total time managing care of this patient today ____ minutes.
--- NOTE | 2023-03-02 11:46 | HO.ANESPROP2 ---
Documented by User: Marbella Muir NP 03/02/23 11:49 HPI - Anesthesia Eval Consult details Narrative: 77yo F for Left Flank OPEN Hernia Repair Incisional with mesh, Incarcerated OPEN Hernia Repair Umbilical with mesh s/p OLIF 10/2022 with GA-ETT 7 (Prior to to OLIF: Medically optimized per [facility] Preop clinic No recent illness No chest pain Some chronic FLOWERS. No asthma exac FBS ~120 Reports GERD can trigger bronchospasm. PPI BID. Famotadine preop.) PMFSH Active Problems Active Problems: All Active Problems (Updated 02/17/23 @ 13:10 by Saray Rasmussen MD) Umbilical hernia (Acute) Incisional hernia (Acute) Status post lumbar and lumbosacral fusion by anterior technique (Acute) Lumbar disc herniation with radiculopathy (Acute) Spondylolisthesis, lumbar region (Acute) Back pain of lumbar region with sciatica (Acute) IgA monoclonal gammopathy (Acute) Age-related osteoporosis without current pathological fracture (Acute) Encounter for monitoring leflunomide therapy (Acute) Low back pain, unspecified (Acute) Cancer screening (Acute) Anemia (Acute) Encounter for vitamin deficiency screening (Acute) Diabetes mellitus type 2 in obese (Acute) Metabolic syndrome (Acute) Screening for viral disease (Acute) Lumbar radiculopathy (Acute) Lumbar spondylosis (Acute) Dysuria (Acute) Hypersomnia (Acute) Snoring (Acute) Restless legs syndrome (RLS) (Acute) History of lumbar surgery (Acute) Seropositive rheumatoid arthritis (Acute) Past Medical History Medical History Hypersomnia Snoring Restless legs syndrome (RLS) Back pain Arthritis Osteoporosis HTN (hypertension) Elevated cholesterol Asthma Numbness Diabetes GERD (gastroesophageal reflux disease) Hiatal hernia Proteinuria Cataract Seropositive rheumatoid arthritis Family History Family History Brother HTN (hypertension) Diabetes Sister Diabetes Rheumatoid arthritis Family history of problems with anesthesia: No Surgical History Surgical History Hx of bilateral cataract extraction History of lumbar surgery History of Problems with Anesthesia: No Social History Social History Household Members: Family and None Housing: House Are you a primary childcare center administrator to a significant other at home: No Do you presently have visiting nurse or other home services: Yes Alcohol intake: never Patient Tobacco Use Status: Never used Tobacco Use of substances other than those prescribed or required for medical reasons: No Are you DNR?: No Advance Directives: No Advance Directives Information Provided: Yes Suicidal Behavior: Aborted suicide attempts Current/Past Psychiatric Disorders: Alcohol abuse service: No Meds Allergies Allergy/AdvReac Type Severity Reaction Status Date / Time Penicillins [PCN] Allergy Intermediate RASH Verified 03/03/23 07:51 Home Medications Medication Instructions Recorded Confirmed Last Taken Type acetaminophen 650 mg 650 mg PO Q12H PRN Pain 02/20/20 03/03/23 03/03/23 06:00 History tablet,extended release (Tylenol Arthritis Pain) albuterol sulfate 90 mcg/actuation 2 inh inhalation Q4-6H PRN 02/20/20 03/03/23 Unknown History breath activated powder inhaler Shortness Of Breath fluticasone furoate 100 1 inh inhalation DAILY 02/20/20 03/03/23 Unknown History mcg-vilanterol 25 mcg/dose inhalation powder (Breo Ellipta) losartan 50 mg tablet 50 mg PO DAILY 02/20/20 03/03/23 03/02/23 History tramadol 50 mg tablet 50 mg PO Q8H PRN Pain 09/09/20 03/03/23 03/03/23 06:00 History furosemide 40 mg tablet 40 mg PO DAILY 01/28/22 03/03/23 Unknown History gabapentin 300 mg capsule 300 mg PO TID 01/28/22 03/03/23 Unknown History nifedipine 60 mg tablet,extended 60 mg PO DAILY 01/28/22 03/03/23 03/02/23 History release propranolol 20 mg tablet 20 mg PO BID 01/28/22 03/03/23 03/02/23 History atorvastatin 20 mg tablet 20 mg PO BEDTIME 04/06/22 03/03/23 Unknown History glimepiride 4 mg tablet 4 mg PO DAILY 04/06/22 03/03/23 Unknown History hydralazine 50 mg tablet 50 mg PO BID 04/06/22 03/03/23 Unknown History docusate sodium 100 mg capsule 100 mg PO BID PRN Constipation 06/09/22 03/03/23 Unknown History omeprazole magnesium 20 mg 20 mg PO BID 06/09/22 03/03/23 Unknown History tablet,delayed release (Prilosec OTC) Exam Exam Date and Time: March 02, 2023 1146 Pertinent Lab Results Pertinent Lab Results: Laboratory Tests 03/01/23 15:56 WBC 6.2 Hgb 9.5 L Hct 31.6 L Plt Count 276 Sodium 142 Potassium 4.9 Chloride 108 Carbon Dioxide 25 BUN 43 H Creatinine 1.39 Narrative Narrative: EKG 09/2022 NSR @ 81 Assessment and Plan Assessment Anesthesia Assessment: Chart Reviewed Final Anesthetic Review Family History of Problems with Anesthesia: No History of Problems with Anesthesia: No Documented by User: Ruby Swain MD 03/03/23 08:27 PENDING SALE TO [facility] Past Medical History Medical History Hypersomnia Snoring Restless legs syndrome (RLS) Back pain Arthritis Osteoporosis HTN (hypertension) Elevated cholesterol Asthma Numbness Diabetes GERD (gastroesophageal reflux disease) Hiatal hernia Proteinuria Cataract Seropositive rheumatoid arthritis Family History Family History Brother HTN (hypertension) Diabetes Sister Diabetes Rheumatoid arthritis Surgical History Surgical History Hx of bilateral cataract extraction History of lumbar surgery Social History Social History Household Members: Family and None Housing: House Are you a primary childcare center administrator to a significant other at home: No Do you presently have visiting nurse or other home services: Yes Alcohol intake: never Patient Tobacco Use Status: Never used Tobacco Use of substances other than those prescribed or required for medical reasons: No Are you DNR?: No Advance Directives: No Advance Directives Information Provided: Yes Suicidal Behavior: Aborted suicide attempts Current/Past Psychiatric Disorders: Alcohol abuse service: No Meds Allergies Allergy/AdvReac Type Severity Reaction Status Date / Time Penicillins [PCN] Allergy Intermediate RASH Verified 03/03/23 07:51 Home Medications Medication Instructions Recorded Confirmed Last Taken Type acetaminophen 650 mg 650 mg PO Q12H PRN Pain 02/20/20 03/03/23 03/03/23 06:00 History tablet,extended release (Tylenol Arthritis Pain) albuterol sulfate 90 mcg/actuation 2 inh inhalation Q4-6H PRN 02/20/20 03/03/23 Unknown History breath activated powder inhaler Shortness Of Breath fluticasone furoate 100 1 inh inhalation DAILY 02/20/20 03/03/23 Unknown History mcg-vilanterol 25 mcg/dose inhalation powder (Breo Ellipta) losartan 50 mg tablet 50 mg PO DAILY 02/20/20 03/03/23 03/02/23 History tramadol 50 mg tablet 50 mg PO Q8H PRN Pain 09/09/20 03/03/23 03/03/23 06:00 History furosemide 40 mg tablet 40 mg PO DAILY 01/28/22 03/03/23 Unknown History gabapentin 300 mg capsule 300 mg PO TID 01/28/22 03/03/23 Unknown History nifedipine 60 mg tablet,extended 60 mg PO DAILY 01/28/22 03/03/23 03/02/23 History release propranolol 20 mg tablet 20 mg PO BID 01/28/22 03/03/23 03/02/23 History atorvastatin 20 mg tablet 20 mg PO BEDTIME 04/06/22 03/03/23 Unknown History glimepiride 4 mg tablet 4 mg PO DAILY 04/06/22 03/03/23 Unknown History hydralazine 50 mg tablet 50 mg PO BID 04/06/22 03/03/23 Unknown History docusate sodium 100 mg capsule 100 mg PO BID PRN Constipation 06/09/22 03/03/23 Unknown History omeprazole magnesium 20 mg 20 mg PO BID 06/09/22 03/03/23 Unknown History tablet,delayed release (Prilosec OTC) Exam Airway Mallampati Class: II TM Dist: >3cm Neck ROM: Full (pt denies neck pain and has full range of motion) Loose/Missing/Broken Teeth: No Heart: RRR Lungs: CTA Assessment and Plan Assessment Anesthesia Assessment: Anesthesia Plan Discussed Final Anesthetic Review NPO: Yes ASA Class: II Final Preanesthetic Review: Meds/Allgs Chart Reviewed, Consent Obtained/Reviewed and Anes Risks/Benef Reviewed Patient Risk: Low Procedure Risk: Low Anesthetic Plan Anesthetic Plan: GA Disposition: Standard PACU
[2023-03-03] VITALS (9 sets, daily range): BP systolic 145–186; BP diastolic 73–99; PULSE 89–99; RESP 16–18; TEMP 36.1–37.4; O2SAT 94–99; BMI 33.0
--- NOTE | 2023-03-03 07:32 | MHC.SHP ---
Pre-Procedural Eval Section A Date of Service: 03/03/23 The patient is an INPATIENT: No Changes since office visit: No Cold of Flu in the past 2 weeks, No New Medical Problems, No Changes in Medication and No Patient answered all questions The History & Physical has been completed within 30 days and I have reviewed it.: Yes Section B Chief Complaint: incisional and umbilical hernia repair Allergies: Allergies Allergy/AdvReac Type Severity Reaction Status Date / Time Penicillins [PCN] Allergy Intermediate RASH Verified 02/17/23 12:47 Plan I have reviewed the history and physical and performed a pertinent physical examination on my patient. No changes have occurred unless specified. Time Spent With Patient Time: Total time managing care of this patient today ____ minutes.
[2023-03-03 07:52] LABS: Glucose, Whole Blood 172 mg/dL (60-115)
[2023-03-03] MEDS: Lactated Ringers 1,000 ML 100 ML IVCONT (08:02)
[2023-03-03] MEDS: Albuterol Sulfate (0.083%) 2.5 MG/3 ML VIAL.NEB INHALE (08:21)
--- NOTE | 2023-03-03 08:23 | PC.NURSE ---
Patient arrived to pre with faint expiratory wheezing throughout. Known history of asthma with inhalers at home daily. No inhalers taken today. SaO2 95%. Dr. Swain made aware, nebulizer treatment ordered. Patient tolerated well.
--- NOTE | 2023-03-03 10:12 | W.PM.OPN ---
Operative Note Operative Note Date of Service: 03/03/23 Narrative: Preoperative diagnosis: [] 1. Left flank incarcerated incisional hernia 2. Incarcerated umbilical hernia Postop diagnosis: [] Same Procedure [] 1. Repair of left flank incarcerated incisional hernia with Bard mesh, extensive enterolysis 2. Repair incarcerated umbilical hernia with Bard mesh Surgeon: [] Jay [employer] Operator: [] Rakesh Type of Anesthesia: [] General Indication for surgery: [] 1. Incarcerated left flank incisional hernia with densely adhered small bowel contents necessitating meticulous enterolysis to separate them from the hernia sac and reduced them to allow repair. Defect measured approximately for cm. 2. Incarcerated umbilical hernia measuring approximately 2 cm. With omental contents. Findings: [] Patient is brought to the operating room, placed on operative table in supine position, after adequate level of general anesthesia was induced, patient was initially placed in the right lateral decubitus position. The left flank area was prepped and draped in usual sterile fashion. Using a transverse incision over the prior scar from the previous surgery, this carried down through skin, subcutaneous tissue, and abdominal wall musculature where a very large hernia sac with incarcerated small bowel contents was circumferentially dissected down to the abdominal cavity. Sac was opened where very adhered small-bowel necessitated meticulous and extensive enterolysis pre the bowel to allow reduction of the abdominal cavity. The hernia sac was any obtained using Bovie. Circumferential clearance of the peritoneum was performed, and a Bard mesh placed in the defect and circumferentially sutured to the surrounding musculature using interrupted 0 Ethibond suture. At completion the procedure, mesh was in very good position with no tension or gaps. Wounds irrigated, secured hemostasis. Was closed the following manner; abdominal wall musculature was reapproximated in layers using interrupted 2-0 Vicryl sutures. Interrupted inverted dermal 3-0 Vicryl sutures followed by running subcuticular 4-0 Vicryl suture placed. Steri-Strips and sterile dressings were applied. Wounds and draped 0.5% Marcaine at completion. Next the patient placed in a supine position and the abdomen prepped and draped in the usual sterile fashion. An infraumbilical curvilinear incision was made and carried down through skin, subcutaneous tissue, where a hernia sac was identified and dissected off the posterior aspect of the umbilicus down to the fascia. Sac was opened where incarcerated omental contents were amputated along with the sac. Fascia margins were circumferentially cleared. A Bard mesh was placed in this defect, and the superficial layer of the mesh was sutured to the surrounding fascia using interrupted 0 Ethibond suture. At completion of procedure, mesh was in very good position with no tension or gaps Wounds irrigated, secured hemostasis. It was closed in the following manner; posterior aspect of the umbilicus was tacked to the wound floor using up to 3-0 Vicryl sutures. Skin was closed using interrupted inverted dermal 3-0 Vicryl sutures followed by Steri-Strips and sterile dressings. Wounds infiltrated 0.5% Marcaine/1% lidocaine. Sponge, needle, instrument counts reported to be correct. Patient tolerated the procedure well and emerged from anesthesia stable condition. EBL minimal
== END 2023-03-03 12:52 | disposition home or self-care (01) ==
PROVIDERS: PCP Internal Medicine; Visit Provider Surgery
PROC: (CPT 49594; principal; 2023-03-03 08:40)
PROC: (CPT 49594; 2023-03-03 08:40)
DX: K43.0 Incisional hernia with obstruction, without gangrene (principal); K42.0 Umbilical hernia with obstruction, without gangrene; K66.0 Peritoneal adhesions (postprocedural) (postinfection); I10 Essential (primary) hypertension; E78.00 Pure hypercholesterolemia, unspecified; J45.909 Unspecified asthma, uncomplicated; E11.9 Type 2 diabetes mellitus without complications; K44.9 Diaphragmatic hernia without obstruction or gangrene; M05.9 Rheumatoid arthritis with rheumatoid factor, unspecified; M54.9 Dorsalgia, unspecified; K21.9 Gastro-esophageal reflux disease without esophagitis; Z79.51 Long term (current) use of inhaled steroids; Z79.84 Long term (current) use of oral hypoglycemic drugs; Z79.899 Other long term (current) drug therapy; Z88.0 Allergy status to penicillin; Z98.890 Other specified postprocedural states
CPT/HCPCS: 49594; 82947; 88302; 88304; C1781; J0665; J0736; J1100; J1170; J2371; J2405; J2704; J3010

== ENCOUNTER → 2023-03-03 07:12 | Outpatient (BNV) | payer OTHER, SELFPAY | PROVIDERS: PCP Internal Medicine; Visit Provider Surgery | DX: K43.2 Incisional hernia without obstruction or gangrene (principal); K42.9 Umbilical hernia without obstruction or gangrene | CPT/HCPCS: 49595 ==

== ENCOUNTER 2023-03-14 11:27 | Outpatient (AMB) | payer OTHER, SELFPAY ==
[2023-03-14 11:34] VITALS: BP 165/75; PULSE 88
--- NOTE | 2023-03-14 11:34 | A.OFFVIS_ITS ---
Intake Vital Signs 03/14/23 11:34 Weight 199 lb BP 165/75 H Blood Pressure Location Rt brachial Position Sitting Pulse 88 Intake Visit Reasons: S/P incisional hernia & umbilical hernia Intake Note: Patient here s/p Lt flank incisional hernia and Incarcerate umbilical hernia on 03-03-23. Reports incisions healing well.C/o pain on abd and radiating down lt leg. Still taking rx pain meds. Electronic Calibration Technician Required: No Accompanied by: Son Allergies Penicillins [PCN] Allergy (Intermediate, Verified 03/14/23 11:35) RASH Medication List - Last Reconciled 03/14/23 by Emmanuel Thompson MD acetaminophen ER (Tylenol Arthritis Pain) 650 mg PO Q12H PRN Actemra (tocilizumab) 162 mg (0.9 mL) subcut Q2W NS albuterol sulfate 90 mcg/actuation 2 inhalations inhalation Q4-6H PRN atorvastatin 20 mg PO BEDTIME docusate sodium 100 mg PO BID PRN fluticasone furoate-vilanterol 100-25 mcg/dose (Breo Ellipta) 1 inh inhalation DAILY furosemide 40 mg PO DAILY gabapentin 300 mg PO TID glimepiride 4 mg PO DAILY hydralazine 50 mg PO BID hydrocodone-acetaminophen 5-325 mg 1 tab PO Q4-6H PRN hydrocodone-acetaminophen 5-325 mg 1 tab PO Q4-6H PRN hydrocodone-acetaminophen 5-325 mg 1 tab PO Q4-6H PRN leflunomide 20 mg PO DAILY losartan 50 mg PO DAILY nifedipine ER 60 mg PO DAILY omeprazole magnesium (Prilosec OTC) 20 mg PO BID propranolol 20 mg PO BID ropinirole 0.5 mg PO TID ropinirole ER 2 mg PO BEDTIME tramadol 50 mg PO Q8H PRN HPI HPI Comments History of Present Illness Details Patient presents with her son. All things considered she is doing relatively well. She is tolerating a diet. She is occasionally constipated but having regular bowel habits. She complains of incisional discomfort which is expected. Patient has nonspecific bilateral lower extremity arthritic complaints as well. [facility] Medical History Hypersomnia Snoring Restless legs syndrome (RLS) Back pain Arthritis Osteoporosis HTN (hypertension) Elevated cholesterol Asthma Numbness Diabetes GERD (gastroesophageal reflux disease) Hiatal hernia Proteinuria Cataract Seropositive rheumatoid arthritis Surgical History Hx of bilateral cataract extraction History of lumbar surgery Family History Brother HTN (hypertension) Diabetes Sister Diabetes Rheumatoid arthritis Household Members: Family and None Housing: House Are you a primary healthcare corporate account director to a significant other at home: No Do you presently have visiting nurse or other home services: Yes Alcohol intake: never Patient Tobacco Use Status: Never used Tobacco service: No Physical Exam Vital Signs: Last Vital Signs Pulse 88 03/14/23 11:34 BP 165/75 H 03/14/23 11:34 GI Other: Both wounds clean dry and intact well healed. Abdomen corpulent, soft, benign. Extrem Other: Extremities grossly intact. No evidence of any edema. Assessment & Plan Assessment & Plan (1) Umbilical hernia: Code(s): K42.9 - Umbilical hernia without obstruction or gangrene (2) Incisional hernia: Code(s): K43.2 - Incisional hernia without obstruction or gangrene Plan Patient has senna been given local instructions. They will see me in approximately 3-4 weeks time or p.r.n.. All questions were answered. Patient would like a renewal pain meds which was provided. Medications: New hydrocodone-acetaminophen 5-325 mg Partial Fill upon patient request. 1 tab PO Q4-6H PRN 30 tabs 0RF pain Coding Level of Care Code Global (15577) Diagnoses Umbilical hernia K42.9 Incisional hernia K43.2
== END 2023-03-14 11:41 | disposition home or self-care (01) ==
PROVIDERS: PCP Internal Medicine; Visit Provider Surgery
DX: K42.9 Umbilical hernia without obstruction or gangrene (principal); K43.2 Incisional hernia without obstruction or gangrene; Z09 Encounter for follow-up examination after completed treatment for conditions other than malignant neoplasm
CPT/HCPCS: 99212

== ENCOUNTER → 2023-03-14 11:27 | Outpatient (BNVA) | payer OTHER, SELFPAY | PROVIDERS: PCP Internal Medicine; Visit Provider Surgery | DX: K43.2 Incisional hernia without obstruction or gangrene (principal); K42.9 Umbilical hernia without obstruction or gangrene | CPT/HCPCS: 99212 ==

== ENCOUNTER → 2023-04-04 11:16 | Outpatient (REF) | payer OTHER, SELFPAY | LOC: HO.SL 11:16 | PROVIDERS: PCP Internal Medicine; Visit Provider Psychiatry & Neurology Neurology | DX: G25.81 Restless legs syndrome (principal); R06.83 Snoring; G47.10 Hypersomnia, unspecified; G47.33 Obstructive sleep apnea (adult) (pediatric); Z09 Encounter for follow-up examination after completed treatment for conditions other than malignant neoplasm; Z87.19 Personal history of other diseases of the digestive system | CPT/HCPCS: 95806; 99212 ==

== ENCOUNTER → 2023-04-04 11:25 | Outpatient (BNV) | payer OTHER, SELFPAY | PROVIDERS: PCP Internal Medicine; Visit Provider Psychiatry & Neurology Neurology | DX: G47.33 Obstructive sleep apnea (adult) (pediatric) (principal) | CPT/HCPCS: 95806 ==

== ENCOUNTER 2023-04-04 14:27 | Outpatient (AMB) | payer OTHER, SELFPAY ==
[2023-04-04 14:32] VITALS: BP 133/66; PULSE 100
--- NOTE | 2023-04-04 14:32 | A.OFFVIS_ITS ---
Intake Vital Signs 04/04/23 14:32 Weight 199 lb BP 133/66 Blood Pressure Location Lt brachial Position Sitting Pulse 100 Intake Visit Reasons: 3 wk follow up incisional & umbilical hernia Intake Note: Patient here for 3wk f/u incisional and umbilical hernia repair. Patient c/o: Pain on Rt abd. Taking Tramadol, tylenol and ibuprofen. Fine Grade Bulldozer Operator Required: No Accompanied by: Son Allergies Penicillins [PCN] Allergy (Intermediate, Verified 04/04/23 14:34) RASH HPI HPI Comments History of Present Illness Details Patient presents with her son. Her incisional discomfort is markedly improving. She is tolerating her diet and having regular bowel habits. She has taken tramadol for pain. [facility] Medical History Hypersomnia Snoring Restless legs syndrome (RLS) Back pain Arthritis Osteoporosis HTN (hypertension) Elevated cholesterol Asthma Numbness Diabetes GERD (gastroesophageal reflux disease) Hiatal hernia Proteinuria Cataract Seropositive rheumatoid arthritis Surgical History Hx of bilateral cataract extraction History of lumbar surgery Family History Brother HTN (hypertension) Diabetes Sister Diabetes Rheumatoid arthritis Social History Household Members: Family and None Housing: House Are you a primary primary care coordinator to a significant other at home: No Do you presently have visiting nurse or other home services: Yes Alcohol intake: never Patient Tobacco Use Status: Never used Tobacco service: No Physical Exam Vital Signs: Last Vital Signs Pulse 100 04/04/23 14:32 BP 133/66 04/04/23 14:32 GI Other: Abdomen soft. Umbilical left flank wounds well healed. No evidence of any infection recurrence. Assessment & Plan Assessment & Plan (1) Umbilical hernia: Code(s): K42.9 - Umbilical hernia without obstruction or gangrene (2) Incisional hernia: Code(s): K43.2 - Incisional hernia without obstruction or gangrene Plan Patient and son have been given local instructions, and will follow-up p.r.n.. All questions answered. Patient was given abdominal binder which apparently does not fit well. I recommend ordering 1 and was on if not from a medical supply store to help support her incisions. Coding Level of Care Code Global (86997) Diagnoses Umbilical hernia K42.9 Incisional hernia K43.2
== END 2023-04-04 14:42 | disposition home or self-care (01) ==
PROVIDERS: PCP Internal Medicine; Visit Provider Surgery
DX: K42.9 Umbilical hernia without obstruction or gangrene (principal); K43.2 Incisional hernia without obstruction or gangrene; Z09 Encounter for follow-up examination after completed treatment for conditions other than malignant neoplasm
CPT/HCPCS: 99212

== ENCOUNTER 2023-08-15 13:21 | Outpatient (AMB) | payer OTHER, SELFPAY ==
[2023-08-15 13:28] VITALS: BP 121/58; PULSE 83
--- NOTE | 2023-08-15 13:28 | A.OFFVIS_ITS ---
Vital Signs 08/15/23 13:28 Weight 190 lb BP 121/58 L Blood Pressure Location Rt brachial Position Sitting Pulse 83 Intake Visit Reasons: swelling, post umbilical hernia repair Intake Note: Patient scheduled today's appointment c/o swelling post umbilical hernia repair. Patient c/o: Lt abd pain. SX: 03-03-2023. [employer] Required: No Accompanied by: isrrael Nugyen Allergies Penicillins [PCN] Allergy (Intermediate, Verified 08/15/23 13:30) RASH HPI Comments Details: Patient presents with a granddaughter. She is nonspecific left flank and upper abdominal complaints. She has tolerating a diet. Having regular bowel habits she has occasional constipation. Patient has never had colonoscopy before. She does not notice any particular food intolerances. [facility] Medical History Hypersomnia Snoring Restless legs syndrome (RLS) Back pain Arthritis Osteoporosis HTN (hypertension) Elevated cholesterol Asthma Numbness Diabetes GERD (gastroesophageal reflux disease) Hiatal hernia Proteinuria Cataract Seropositive rheumatoid arthritis Surgical History Hx of bilateral cataract extraction History of lumbar surgery Family History Brother HTN (hypertension) Diabetes Sister Diabetes Rheumatoid arthritis Social History Household Members: Family and None Housing: House Are you a primary wild animal caretaker to a significant other at home: No Do you presently have visiting nurse or other home services: Yes Alcohol intake: never Patient Tobacco Use Status: Never used Tobacco service: No Physical Exam Vital Signs: Last Vital Signs Pulse 83 08/15/23 13:28 BP 121/58 L 08/15/23 13:28 GI Other: Flank wound/hernia repair site is well healed. No evidence of recurrence or infection. Patient has tenderness over the graft site near the anterior superior iliac spine area. Abdomen is soft and benign. Very corpulent. Incisional hernia well healed no evidence of recurrence or infection. Assessment & Plan Assessment & Plan (1) Abdominal pain: Code(s): R10.9 - Unspecified abdominal pain Category: Surgical Plan Discussed with granddaughter and patient that she should have a screening colonoscopy since she has never had 1 of these before. We will arrange for this with Gastroenterology Department. Further interventions studies will be determined by the above-mentioned procedure and the patient's clinical course. All questions answered. Coding Level of Care Code Est Pt Level 3 (37421) Diagnoses Abdominal pain R10.9
== END 2023-08-15 13:32 | disposition home or self-care (01) ==
PROVIDERS: PCP Internal Medicine; Visit Provider Surgery
DX: R10.9 Unspecified abdominal pain (principal)
CPT/HCPCS: 99213

== ENCOUNTER → 2023-08-15 13:21 | Outpatient (BNVA) | payer OTHER, SELFPAY | PROVIDERS: PCP Internal Medicine; Visit Provider Surgery | DX: R10.9 Unspecified abdominal pain (principal); K59.00 Constipation, unspecified | CPT/HCPCS: 99212 ==

== ENCOUNTER 2024-05-15 13:01 | Outpatient (REF) | payer OTHER, SELFPAY ==
[2024-05-15 13:24] LABS: MANUAL DIFF FLAG NO
[2024-05-15 13:26] LABS: Basophils Absolute Auto 0.1 X10*3/uL (0.0-0.2); Basophils Percent Auto 0.8 % (0-2); Eosinophils Absolute Auto 0.5 X10*3/uL (0.0-0.4); Eosinophils Percent Auto 4.9 % (0-4); Hematocrit 32.4 % (37.0-47.0); Hemoglobin 9.9 g/dl (12.0-16.0); Imm Gran Abs Auto 0.05 X10*3/uL (0.00-0.03); Imm Gran Pct Auto 0.5 % (0.0-0.4); Lymphocytes Absolute Auto 1.3 X10*3/uL (1.2-4.9); Lymphocytes Percent Auto 14.1 % (20-40); Mean Corpuscular HGB Conc 30.6 g/dl (31.0-35.0); Mean Corpuscular Volume 75.2 fL (80.0-98.0); Mean Platelet Volume 10.6 fL (9.4-12.3); Monocytes Absolute Auto 1.1 X10*3/uL (0.1-1.2); Monocytes Percent Auto 12.1 % (2-11); Neutrophils Absolute Auto 6.2 x10*3/uL (2.0-8.3); Neutrophils Percent Auto 67.6 % (45-73); Platelet Count 330 X10*3/uL (160-400); Red Blood Count 4.31 X10*6/uL (4.20-5.50); Red Cell Distribution Width 18.6 % (11.0-16.0); White Blood Count 9.2 X10*3/uL (4.8-10.8)
[2024-05-15 13:54] LABS: Alanine Aminotransferase 15 U/L (0-31); Albumin Level 3.6 g/dL (3.5-5.0); Alkaline Phosphatase 97 U/L (39-117); Anion Gap 15 (12-20); Aspartate Amino Transferase 17 U/L (5-31); Bilirubin Total 0.4 mg/dL (0.0-1.0); Blood Urea Nitrogen 50 mg/dL (9-16); C Reactive Protein 0.18 mg/dL (< or = 0.50); Calcium 8.3 mg/dL (8.4-10.2); Carbon Dioxide 21 mmol/L (22-29); Chloride 109 mmol/L (96-108); Estimated Glomerular Filt Rate 40; Glucose Random 144 mg/dL (60-115); Potassium 4.1 mmol/L (3.3-5.1); Sodium 141 mmol/L (135-145); Total Protein 7.1 g/dL (6.5-8.0)
--- OUTSIDE RECORDS SUMMARY | 2024-05-15 14:00 | XMS_ITS | Encounter Summary ---
Author Organization [facility] [place] Address [address] [facility] [address] [place] [address] Phone Care Team Providers Care Skein Winding Operator Name Role Phone Helga Da Silva MD Primary Care Provide r Reason for Visit * Reason Comments Med Refill Encounter Details Date Type Department Care Team (Late Contact Info) Description 04/01/2021 Refill [facility] [address] [facility] [address] [place] [phone] Bhupinder Simms MD [facility] [address] [phone] Social History Tobacco Use Types Packs/Day Years Used Date Smoking Tobacco: Never Alcohol Use Standard Drinks/Week Comments No 0 (1 standard drink = 0.6 oz pur e alcohol) Comments Unknown Sex and Gender Information Value Date Recorded Sex Assigned at Not on file Legal Sex Female 5:08 PM EST Gender Identity Not on file Sexual Orientation Not on file documented as of this encounter Plan of Treatment Upcoming Encounters Date Type Department Care Team (Late Contact Info) Description 11/05/2024 3:00 PM EDT Office Visit [facility] [address] [phone] Bhupinder Simms MD [address] [phone] documented as of this encounter Visit Diagnoses Not on filedocumented in this encounter Care Teams Skein Winding Operator Relationship Specialty Start Date End Date Helga Da Silva MD [address] [place], [place] PCP - General 04/28/20 documented as of this encounter
--- OUTSIDE RECORDS SUMMARY | 2024-05-15 14:00 | XMS_ITS | Encounter Summary ---
Author Organization [facility] [place] Address [address] [facility] [address] [place] [address] Phone Care Team Providers Care House Principal Name Role Phone Helga Da Silva MD Primary Care Provide r Reason for Visit * Reason Comments Med Refill Encounter Details Date Type Department Care Team (Late Contact Info) Description 03/25/2021 Refill [facility] [address] [facility] [address] [place] [phone] Bhupinder Simms MD [facility] [address] [phone] Social History Tobacco Use Types [...] Office Visit [facility] [address] [phone] Bhupinder Simms MD [address] [phone] documented as of this encounter Visit Diagnoses Not on filedocumented in this encounter Care Teams House Principal Relationship Specialty Start Date End Date Helga Da Silva MD [address] [place], [place] PCP - General 04/28/20 documented as of this encounter
--- OUTSIDE RECORDS SUMMARY | 2024-05-15 14:01 | XMS_ITS | Clinical Summary ---
Author Organization [facility] Address [address] [place] [phone] Phone Care Team Providers Care Devops Solutions Architect Name Role Phone Helga Da Silva MD Primary Care Provide r Allergies Active Allergy Reactions Criticality Noted Date Comments Penicillins Other (see comments) 05/30/2020 Medications gabapentin (NEURONTIN) 300 MG capsule Take 1 capsule by mouth 1 (one) time each day Active Acetaminophen 500 MG capsule Take 1 tablet by mouth if needed 1 Active tiotropium (SPIRIVA) 18 MCG per inhalation capsule Place 1 capsule into inhaler and inhale 1 (one) time each day Active leflunomide (ARAVA) 20 MG tablet Take 20 mg by mouth 1 (one) time each day Active albuterol HFA (PROVENTIL HFA;VENTOLIN HFA) 108 (90 Base) MCG/ACT inhaler Inhale 2 puffs every 6 (six) hours if needed for wheezing Active omeprazole (PriLOSEC) [address] capsule Take 20 mg by mouth 1 (one) time each day Do not crush or chew. Active glimepiride (AMARYL) 2 MG tablet Take 2 mg by mouth 1 (one) time each day before breakfast Active simvastatin (ZOCOR) 20 MG tablet Take 20 mg by mouth every night Active aspirin (ST BRIELLE) 81 MG EC tablet Take 81 mg by mouth 2 (two) times a week Active tiZANidine (ZANAFLEX) 2 MG tablet Take 2 mg by mouth if needed for muscle spasms Active furosemide (LASIX) 40 MG tablet TAKE 1 TABLET(40 MG) BY MOUTH 1 TIME EACH DAY 90 tablet 3 3 Active hydrALAZINE 50 MG tablet TAKE 1 TABLET(50 MG) BY MOUTH EVERY MORNING AND EVERY EVENING 180 tablet 3 4 Active losartan (COZAAR) 50 MG tablet Take 1 tablet (50 mg total) by mouth 1 (one) time each day 90 tablet 3 4 Active propranolol (INDERAL) 10 MG tabletIndicatio ns:Palpitations Take 1 tablet (10 mg total) by mouth in the morning and 1 tablet (10 mg total) in the evening. 180 tablet 3 5 05/10/19 26 Active NIFEdipine CC (ADALAT CC) 60 MG 24 hr tabletIndicatio ns:Stage 3b chronic kidney disease (HCC),Hypertens carine renal disease Take 1 tablet (60 mg total) by mouth 1 (one) time each day Do not crush, chew, or split. 90 tablet 3 5 Active NIFEdipine CC (ADALAT CC) 60 MG 24 hr tablet TAKE 1 TABLET BY MOUTH EVERY DAY 90 tablet 3 4 05/10/19 25 Discontinu ed(Reorder (does not appear on AVS)) propranolol (INDERAL) 10 MG tabletIndicatio ns:Palpitations Take 10 mg by mouth in the morning and 10 mg in the evening. 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 [address] [phone] Cathy LeroyferJENN Stage 3b chronic kidney disease (HCC) (Primary Dx); Hypertensive renal disease; Anemia in chronic kidney disease 02/23/2024 [facility] [address] [place] [phone] Bhupinder Simms MD 02/20/2024 Refill [facility] [address] [phone] Shayy Camacho [place] 02/20/2024 Refill [facility] [address] [phone] Bhupinder Simms MD 02/20/2024 [facility]ill [facility] [address] [phone] Nely Frias [place] 02/20/2024 Office Communication [facility] [address] [phone] Bhupinder Simms MD 02/19/2024 Refill [facility] [place] [address] [facility] [address] [phone] Bhupinder Simms MD from Last 3 Months Immunizations Name Administration Dates Next Due Influenza, Unspecified 02/14/2020,01/31/2019 Pfizer SARS-COV-2 09/08/2020,08/18/2020 Pneumococcal Conjugate 13-Valent 01/06/2017 Family History Medical History Relation Comments Diabetes Child Hypertension Sibling Relation Status Comments Child Father Mother Sibling Social History Tobacco Use Types Packs/Day Years Used Date Smoking Tobacco: Never Smokeless Tobacco: Never Tobacco Cessation:Counseling Given: Not Answered Alcohol Use Standard Drinks/Week Comments No 0 (1 standard drink = 0.6 oz pur e alcohol) Comments Unknown Sex and Gender Information Value Date Recorded Sex Assigned at Not on file Legal Sex Female 5:08 PM EST Gender Identity Not on file Sexual Orientation Not on file Last Filed Vital Signs Vital Sign Reading Time Taken Comments Blood Pressure 122/80 05/10/2024 11:57 AM EST Pulse 109 05/10/2024 11:57 AM EST Temperature - - Respiratory Rate - - Oxygen Saturation 95% 05/10/2024 11:57 AM EST Inhaled Oxygen Concentration - - Weight 87.1 kg (192 lb) 05/10/2024 11:57 AM EST Height 162.6 cm (5' 4 ) 10/03/2020 9:21 AM EDT Body Mass Index 32.96 10/03/2020 9:21 AM EDT Plan of Treatment Upcoming Encounters Date Type Department Care Team (Late st Contact Info) Description 11/05/2024 3:00 PM EDT Office Visit [facility] [address] [phone] Bhupinder Simms MD [address] [phone] Health Maintenance Due Date Last Done Comments Pneumococcal Vaccine: 65+ Years (2 of 2 - PPSV23 or PCV20) 03/03/2017 01/06/2017 Diabetes: Hemoglobin A1C 12/10/2021 Diabetes: Ophthalmology Exam 12/10/2021 Diabetes: Pedal Pulse Checked 12/10/2021 Diabetes: Sensory Foot Exam 12/10/2021 Diabetes: Visual Foot Exam 12/10/2021 Influenza Vaccine (#1) 2023 0, 01/31/2019, 01/06/2017, Additional history exists Hepatitis B Vaccine Aged Out No longe r eligible based on patient's age to complete this topic Insurance [facility] ([id number]) [facility][id number]) Care Teams Devops Solutions Architect Relationship Specialty Start Date End Date Helga Da Silva MD [facility] [address] [place] [address] [address] [place], [place] PCP - General 04/28/20
--- OUTSIDE RECORDS SUMMARY | 2024-05-15 14:01 | XMS_ITS | Encounter Summary ---
Author Organization [facility] Address [address] [address] Phone Care Team Providers Care Nursing Education Specialist Name Role Phone Helga Da Silva MD Primary Care Provide r Reason for Visit * Reason Comments Chronic Kidney Disease Encounter Details Date Type Department Care Team ([facility] st Contact Info) Description 05/10/2024 11:45 AM EST Office Visit [facility] [address] [phone] Carissa Leroy ARNP [address] [phone] Stage 3b chronic kidney disease (HCC) (Primary Dx); Hypertensive renal disease; Anemia in chronic kidney disease Social History Tobacco Use Types Packs/Day Years Used Date Smoking Tobacco: Never Smokeless Tobacco: Never Alcohol Use Standard Drinks/Week Comments No 0 (1 standard drink = 0.6 oz pur e alcohol) Comments Unknown Sex and Gender Information Value Date Recorded Sex Assigned at Not on file Legal Sex Female 5:08 PM EST Gender Identity Not on file Sexual Orientation Not on file documented as of this encounter Last Filed Vital Signs Vital Sign Reading Time Taken Comments Blood Pressure 122/80 05/10/2024 11:57 AM EST Pulse 109 05/10/2024 11:57 AM EST Temperature - - Respiratory Rate - - Oxygen Saturation 95% 05/10/2024 11:57 AM EST Inhaled Oxygen Concentration - - Weight 87.1 kg (192 lb) 05/10/2024 11:57 AM EST Height - - Body Mass Index 32.96 10/03/2020 9:21 AM EDT documented in this encounter Progress Notes * Carissa Leroy ARNP - 05/10/2024 11:45 AM EST Images from the original note were not included. Patient Name: Sherman Hannon Date of : 1945, 79 y.o. Date: 05/10/2024 [] New Patient [x] Established Patient [] New Hospital Follow Up [] Established Hospital Follow Up [] Telemed Visit [] H&P Referring MD: No primary care provider on file. PCP: Helga Da Silva MD Chief Complaint: Chief Complaint Patient presents with Chronic Kidney Disease Reason For Visit: Kelly Mcclellan is a 79 y.o. female for Chronic Kidney Disease with HTN follow- up. Pmhx Anemia, GERD, OA and bilateral cataracts. Has had back surgery x 3 for Arthritis. Continues to have chronic low back pain. Occasionally uses topical Diclofenac cream. Otherwise no NSAID use The following portions of the patient's chart were reviewed in this encounter and updated as appropriate: Allergies Meds Problems Med Hx Surg Hx Fam Hx ROS Constitutional: Negative for chills and fever. HENT: Negative for congestion, ear pain, hearing loss and sore throat. Eyes: Negative for pain and discharge. Respiratory: Negative for cough, shortness of breath and wheezing. Cardiovascular: Negative for chest pain, palpitations and leg swelling. Gastrointestinal: Negative for abdominal pain, blood in stool, constipation, diarrhea, nausea and vomiting. Genitourinary: Negative for dysuria, frequency, hematuria and urgency. Musculoskeletal: Chronic back pain r/t RA - s/p back surgeries Skin: Negative for rash. Neurological: Negative for dizziness, tremors and headaches. Endo/Heme/Allergies: Negative for polydipsia. Does not bruise/bleed easily. Full 13 point review of systems unremarkable except as noted above. Past Medical History: Diagnosis Date Anemia Bilateral cataracts Gastroesophageal reflux disease Hypertension Osteoarthritis Stage 3 chronic kidney disease Past Surgical History: Procedure Laterality Date CATARACT SURGERY LUMBAR DISC SURGERY Left Social History Tobacco Use Smoking status: Never Smokeless tobacco: Never Substance Use Topics Alcohol use: No Family History Problem Relation Age of Onset Diabetes Child Hypertension Sibling Current Outpatient Medications Medication Sig Dispense Refill Acetaminophen 500 MG capsule Take 1 tablet by mouth if needed albuterol HFA (PROVENTIL HFA;VENTOLIN HFA) 108 (90 Base) MCG/ACT inhaler Inhale 2 puffs every 6 (six) hours if needed for wheezing aspirin (ST BRIELLE) 81 MG EC tablet Take 81 mg by mouth 2 (two) times a week furosemide (LASIX) 40 MG tablet TAKE 1 TABLET(40 MG) BY MOUTH 1 TIME EACH DAY 90 tablet 3 gabapentin (NEURONTIN) 300 MG capsule Take 1 capsule by mouth 1 (one) time each day glimepiride (AMARYL) 2 MG tablet Take 2 mg by mouth 1 (one) time each day before breakfast hydrALAZINE 50 MG tablet TAKE 1 TABLET(50 MG) BY MOUTH EVERY MORNING AND EVERY EVENING 180 tablet 3 leflunomide (ARAVA) 20 MG tablet Take 20 mg by mouth 1 (one) time each day losartan (COZAAR) 50 MG tablet Take 1 tablet (50 mg total) by mouth 1 (one) time each day 90 tablet3 NIFEdipine CC (ADALAT CC) 60 MG 24 hr tablet Take 1 tablet (60 mg total) by mouth 1 (one) time eachday Do not crush, chew, or split. 90 tablet 3 omeprazole (PriLOSEC) [address] capsule Take 20 mg by mouth 1 (one) time each day Do not crush or chew. propranolol (INDERAL) 10 MG tablet Take 1 tablet (10 mg total) by mouth in the morning and 1 tablet(10 mg total) in the evening. 180 tablet 3 simvastatin (ZOCOR) 20 MG tablet Take 20 mg by mouth every night tiotropium (SPIRIVA) 18 MCG per inhalation capsule Place 1 capsule into inhaler and inhale 1 (one) time each day tiZANidine (ZANAFLEX) 2 MG tablet Take 2 mg by mouth if needed for muscle spasms No current facility-administered medications for this visit. Allergies Allergen Reactions Penicillins Other (see comments) Objective: Vitals: 05/10/24 1157 BP: 122/80 Pulse: 109 SpO2: 95% Weight: 192 lb (87.1 kg) Vitals reviewed. Vitals reviewed. Constitutional: Patient does not appear ill. HEENT: PAUL , No JVD Nose: Nose normal. Mouth/Throat: Oropharynx is clear and moist. Eyes: Conjunctivae are normal. Pupils are equal, round, and reactive to light. No scleral icterus. Neck: No thyroid mass and no thyromegaly present. Cardiovascular: Normal rate and regular rhythm. Exam reveals no friction rub. No murmur heard. No edema. Pulmonary/Chest: Effort normal and breath sounds normal. No respiratory distress. No wheezes. No rales. Abdominal: Soft. There is no abdominal tenderness. No hernia. Musculoskeletal: Normal range of motion. She exhibits no deformity. Skin: Skin is warm and dry. No rash noted. No erythema. Psychiatric: Normal mood and affect. eGFR Date Value Ref Range Status 10/06/2020 42 Final 10/06/2020 42 Final eGFR Non-Afr Martiniquais Date Value Ref Range Status 08/29/2023 40 Final Chemistry Lab Units 08/29/23 0000 11/29/22 1105 08/17/22 1049 CREATININE mg/dL 1.37* 1.8* 1.3* BUN mg/dL 36* 43* 27* EGFRNAFR 40 29 45 GLUCOSE 142 73 254* POTASSIUM 5.4 5.0 4.5 SODIUM 142 134 141 CO2 MMOL/L -- 23 23 CHLORIDE MMOL/L -- 100 106 ALBUMIN GM/DL -- 3.6 3.7 BILIRUBIN TOTAL MG/DL -- -- 0.3 AST U/L -- -- 16 ALT U/L -- -- 12 Bone Mineral Lab Units 08/29/23 0000 11/29/22 1105 08/17/22 1049 CALCIUM mg/dL 8.5* 8.7 8.8 PHOSPHORUS MG/DL -- 3.7 3.0 ALK PHOS U/L -- -- 99 MAGNESIUM mg/dL -- -- 1.9 PTH PG/ML -- 156* 165* VITAMIN D NG/ML -- 29.6 25.3 CBC Lab Units 08/29/23 0000 WBC AUTO 10*3/ML 5.2 HEMATOCRIT 32.9* HEMOGLOBIN 9.5* PLATELETS AUTO 10*3/UL 302 PLAN: Assessment & Plan 1. Stage 3b chronic kidney disease (HCC) 2. Hypertensive renal disease 3. Anemia in chronic kidney disease 1. CKD 3b- etiology HTN, age. Stable Creatinine 1.3, GFR 40 as of 08/2023 Continue Losartan 50 mg Daily Will monitor for Proteinuria Avoid Nephrotoxins 2. HTN- Blood pressure is well controlled Target BP <130/80 On Hydralazine 50 mg BID, Losartan 50 mg QD, Nifedipine CC 60 mg QD, Propranolol 10 mg BID and Furosemide 40 mg QD No Edema No medication changes made today Follow low NA diet Avoid NSAIDs/Decongestant medication Hx of renal stone; no stone seen on USG rt sided kidney of 9 cm with thinned cortex; R complex renal cyst - Smaller that before 3. Anemia : Keep Hgb 10-12; Hgb 9.5 as of 08/2023, not on iron 4. DM : Suggest changing Glimipride to Glipizide which is renal friendley Target Hgb A1c <7% Weight loss Orders Placed This Encounter CBC PTH, intact Renal function panel Urine Albumin / Creatinine Ratio Urine Protein / creatinine ratio Ferritin Iron Panel (Fe, TIBC, TSAT) Magnesium Vitamin D 25 hydroxy Urinalysis with microscopic Urine culture CBC PTH, intact Renal function panel Urine Albumin / Creatinine Ratio Urine Protein / creatinine ratio Magnesium Ferritin Iron Panel (Fe, TIBC, TSAT) propranolol (INDERAL) 10 MG tablet NIFEdipine CC (ADALAT CC) 60 MG 24 hr tablet Return in about 6 months (around 11/07/2024) for Next scheduled follow-up with Dr. Simms. JENN Grande Cosigned by Bhupinder Simms MD at 05/11/2024 12:05 PM EST documented in this encounter Plan of Treatment Upcoming Encounters Date Type Department Care Team (Late st Contact Info) Description 11/05/2024 3:00 PM EDT Office Visit [facility] P.. [address] [phone] Bhupinder Simms MD [address] [phone] Scheduled Orders Name Type Priority Associated Diagnoses Orde r Schedule CBC Lab Routine Stage 3b chronic kidney disease (HCC) Hypertensive renal disease Anemia in chronic kidney disease Expected: 05/10/2024, Expires: 06/10/2025 PTH, intact Lab Routine Stage 3b chronic kidney disease (HCC) Hypertensive renal disease Anemia in chronic kidney disease Expected: 05/10/2024, Expires: 06/10/2025 Renal function panel Lab Routine Stage 3b chronic kidney disease (HCC) Hypertensive renal disease Anemia in chronic kidney disease Expected: 05/10/2024, Expires: 06/10/2025 Urine Albumin / Creatinine Ratio Lab Routine Stage 3b chronic kidney disease (HCC) Hypertensive renal disease Anemia in chronic kidney disease Expected: 05/10/2024, Expires: 06/10/2025 Urine Protein / creatinine ratio Lab Routine Stage 3b chronic kidney disease (HCC) Hypertensive renal disease Anemia in chronic kidney disease Expected: 05/10/2024, Expires: 06/10/2025 Ferritin Lab Routine Stage 3b chronic kidney disease (HCC) Hypertensive renal disease Anemia in chronic kidney disease Expected: 05/10/2024, Expires: 06/10/2025 Iron Panel (Fe, TIBC, TSAT) Lab Routine Stage 3b chronic kidney disease (HCC) Hypertensive renal disease Anemia in chronic kidney disease Expected: 05/10/2024, Expires: 06/10/2025 Magnesium Lab Routine Stage 3b chronic kidney disease (HCC) Hypertensive renal disease Anemia in chronic kidney disease Expected: 05/10/2024, Expires: 06/10/2025 Vitamin D 25 hydroxy Lab Routine Stage 3b chronic kidney disease (HCC) Hypertensive renal disease Anemia in chronic kidney disease Expected: 05/10/2024, Expires: 06/10/2025 Urinalysis with microscopic Lab Routine Stage 3b chronic kidney disease (HCC) Hypertensive renal disease Anemia in chronic kidney disease Expected: 05/10/2024, Expires: 06/10/2025 Urine culture Lab Routine Stage 3b chronic kidney disease (HCC) Hypertensive renal disease Anemia in chronic kidney disease Expected: 05/10/2024, Expires: 06/10/2025 CBC Lab Routine Stage 3b chronic kidney disease (HCC) Hypertensive renal disease Anemia in chronic kidney disease Expected: 10/14/2024, Expires: 11/15/2024 PTH, intact Lab Routine Stage 3b chronic kidney disease (HCC) Hypertensive renal disease Anemia in chronic kidney disease Expected: 10/14/2024, Expires: 11/15/2024 Renal function panel Lab Routine Stage 3b chronic kidney disease (HCC) Hypertensive renal disease Anemia in chronic kidney disease Expected: 10/14/2024, Expires: 11/15/2024 Urine Albumin / Creatinine Ratio Lab Routine Stage 3b chronic kidney disease (HCC) Hypertensive renal disease Anemia in chronic kidney disease Expected: 10/14/2024, Expires: 11/15/2024 Urine Protein / creatinine ratio Lab Routine Stage 3b chronic kidney disease (HCC) Hypertensive renal disease Anemia in chronic kidney disease Expected: 10/14/2024, Expires: 11/15/2024 Magnesium Lab Routine Stage 3b chronic kidney disease (HCC) Hypertensive renal disease Anemia in chronic kidney disease Expected: 10/14/2024, Expires: 11/15/2024 Ferritin Lab Routine Stage 3b chronic kidney disease (HCC) Hypertensive renal disease Anemia in chronic kidney disease Expected: 10/14/2024, Expires: 11/15/2024 Iron Panel (Fe, TIBC, TSAT) Lab Routine Stage 3b chronic kidney disease (HCC) Hypertensive renal disease Anemia in chronic kidney disease Expected: 10/14/2024, Expires: 11/15/2024 documented as of this encounter Visit Diagnoses Diagnosis Stage 3b chronic kidney disease (HCC)- Primary Hypertensive renal disease Anemia in chronic kidney disease documented in this encounter Care Teams Nursing Education Specialist Relationship Specialty Start Date End Date Helga Da Silva MD [facility] [address] [place] [address] [address] [place], [place] PCP - General 04/28/20 documented as of this encounter
[2024-05-15 14:02] LABS: Erythrocyte Sedimentation Rate 28 MM/HR (0-20)
[2024-05-15 14:23] LABS: HBc Num1 0.07 S/CO (0.00-0.79); HBsAGNum1 0.33 S/CO (0.00-0.99); Hepatitis A Antibody IgM 0.24 Index (0-0.79); Hepatitis B Core Antibody Nonreactive (Nonreactive); Hepatitis B Surface Antigen Negative (Negative); ~Hepatitis A Antibody IgM Nonreactive (Nonreactive); ~Hepatitis B Surface Antibody NONREACTIVE (Nonreactive); ~Hepatitis C Antibody Nonreactive (Nonreactive)
[2024-05-18 09:58] LABS: TS Negative Control Passed; TS Panel A 2; TS Panel B 0; TS Positive Control Passed; TSpotTB Negative (Negative)
== END 2024-05-15 13:02 | disposition home or self-care (01) ==
LOC: HO.LAB 13:01
PROVIDERS: Visit Provider Student in an Organized Health Care Education/Training Program
DX: M05.9 Rheumatoid arthritis with rheumatoid factor, unspecified (principal); Z51.81 Encounter for therapeutic drug level monitoring; Z11.59 Encounter for screening for other viral diseases; Z11.7 Encounter for testing for latent tuberculosis infection; M81.0 Age-related osteoporosis without current pathological fracture; M15.9 Polyosteoarthritis, unspecified; Z79.620 Long term (current) use of immunosuppressive biologic; Z79.899 Other long term (current) drug therapy
CPT/HCPCS: 36415; 80053; 85025; 85652; 86140; 86481; 86704; 86706; 86709; 86803; 87340; 99212

== ENCOUNTER 2024-05-15 13:35 | Outpatient (AMB) | payer OTHER, SELFPAY ==
--- NOTE | 2024-05-15 13:07 | A.OFFVIS_ITS ---
Vital Signs 05/15/24 13:38 Height 5 ft 4 in BP 130/62 Blood Pressure Location Rt brachial Position Sitting Pulse 80 Pulse Source Pulse Oximeter Intake Visit Reasons: RA Intake Note: Patient last seen by Doctor Nickolas Berger on 06/09/22. Presents today for RA follow up and test results. Motor Man Required: Yes Motor Man Services: Motor Man Offered & Declined Accompanied by: Son Allergies Penicillins [PCN] Allergy (Intermediate, Verified 05/15/24 13:46) RASH Medication List - Last Reconciled 05/15/24 by Maryam Rios MD acetaminophen ER (Tylenol Arthritis Pain) 650 mg PO Q12H PRN Actemra (tocilizumab) 162 mg (0.9 mL) subcut Q2W NS albuterol sulfate 90 mcg/actuation 2 inhalations inhalation Q4-6H PRN atorvastatin 20 mg PO BEDTIME docusate sodium 100 mg PO BID PRN fluticasone furoate-vilanterol 100-25 mcg/dose (Breo Ellipta) 1 inh inhalation DAILY furosemide 40 mg PO DAILY gabapentin 300 mg PO TID glimepiride 4 mg PO DAILY hydralazine 50 mg PO BID leflunomide 20 mg PO DAILY losartan 50 mg PO DAILY nifedipine ER 60 mg PO DAILY omeprazole magnesium (Prilosec OTC) 20 mg PO BID propranolol 20 mg PO BID ropinirole 0.5 mg PO TID ropinirole ER 2 mg PO BEDTIME tramadol 50 mg PO Q8H PRN HPI Comments Details: Patient is a 79-year-old female with hyperlipidemia, hypertension, IgA monoclonal gammopathy, osteoporosis and rheumatoid arthritis here today for follow up Interval History: Patient last seen 06/09/[address] Berger. At that time she did a telehealth visit because she could not come to this clinic due to severe back pain. She was status post surgery for disc protrusion Today, Complaining of pain involving all joints No prolonged AM stiffness Gets intermittent knee swelling Has not had Actemra since October 2023 due to travelling Restarted Actemra April Maintained leflunomide 20mg Rheumatologic History: Seropositive RA Osteoarthritis Chronic low back pain She failed hydroxychloroquine and failed Enbrel. She was on leflunomide and Humira for the last 2 years with good control of her RA, she traveled to [place] about 1 year ago and ran out of Humira since May of 2021 Current Rheumatology Medication(s): Leflunomide 20mg daily Actemra 162mg SC every 2 weeks [facility] Medical History (Updated 05/15/24 @ 14:12 by Maryam Rios MD) Polyarticular osteoarthritis Long-term current use of tocilizumab Encounter for monitoring tocilizumab therapy Hypersomnia Snoring Restless legs syndrome (RLS) Back pain Arthritis Osteoporosis HTN (hypertension) Elevated cholesterol Asthma Numbness Diabetes GERD (gastroesophageal reflux disease) Hiatal hernia Proteinuria Cataract Seropositive rheumatoid arthritis Surgical History (Updated 08/15/23 @ 13:35 by Emmanuel Thompson MD) Hx of bilateral cataract extraction History of lumbar surgery Family History Brother HTN (hypertension) Diabetes Sister Diabetes Rheumatoid arthritis Social History Household Members: Family and None Housing: House Are you a primary special needs child caregiver to a significant other at home: No Do you presently have visiting nurse or other home services: Yes Alcohol intake: never Patient Tobacco Use Status: Never used Tobacco service: No Review of Systems Const Details: Review of Systems Constitutional: Denies fever, chills, weight loss ENT: Denies vision changes, eye pain or eye redness, dental caries, dry mouth GI: Denies nausea, vomiting, diarrhea, abdominal pain, change in BM Pulm: Denies SOB, FLOWERS, hemoptysis, wheezing Cards: Denies chest pain, palpitations Skin: Denies Raynaud's, rash, nail changes, photosensitivity, WORKERS COMPENSATION CONSULTANT: Denies headaches, weakness, paresthesias, recurrent falls MSK: as per HPI All other systems reviewed and are unremarkable except noted above Physical Exam Vital signs reviewed Physical Examination CONSTITUITIONAL Patient alert and cooperative. Well appearing and in no apparent painful distress Patient examined in chair HEENT Conjunctiva and sclera clear. ?Pupils equal round and reactive to light. ?No lymphadenopathy. ? CHEST/RESPIRATORY SYSTEM Normal respiratory effort and able to speak in complete sentences. ?Clear to auscultation bilaterally. ?No crackles, rales, rhonchi, wheezes heard. CARDIAC SYSTEM Regular rate and rhythm. ?S1 and S2 heard no murmurs. ?Radial pulses intact bilaterally MSK Hands: ?Good pediatric psychologist strength bilaterally. No deformities noted. ?No synovitis noted to the MCPs, PIPs or DIPs. ?No tenderness to palpation of these joints. Wrists: ?Full range of motion at the wrists without pain. ?No tenderness to palpation or synovitis noted to the wrists. Elbows: Full range of motion without pain. No tenderness, weakness, swelling, increased warmth or erythema. Shoulders: Decreased active range of motion secondary to pain. Full passive range of motion. Tenderness to palpation of bilateral AC joints. Hips: Full range of motion without pain. Hip bursa: No tenderness to palpation Knees: ?Full range of motion. ?Tenderness to palpation of bilateral knee joints. No evidence of swelling noted. Ankles: Full range of motion. ?No tenderness, swelling, increased warmth or erythema.? Feet: ?Negative squeeze test. ?No tenderness to palpation or swelling of the MTPs. Tender points:?No tenderness to palpation of the bilateral trapezius, supraspinatus, greater trochanters, anterior costochondral junctions, bilateral gluteal areas, bilateral suboccipital muscle insertions SKIN Skin intact without rashes. Results Reviewed Results Reviewed: Laboratory Tests 05/15/24 13:22 WBC 9.2 RBC 4.31 Hgb 9.9 L Hct 32.4 L MCV 75.2 L MCH 23.0 L MCHC 30.6 L Plt Count 330 ESR Pending CMP is pending DEXA 01/2022 FINDINGS: AP SPINE L1-L2 (excluding L3 and L4): The data of L1-L4 has been changed to exclude the L3 and L4 vertebral bodies, because degenerative change at these levels may cause overestimation of lumbar spine density. Current: BMD 0.822 g/cm2, Z-score -1.7, T-score -2.9, osteoporosis, 13.5% decrease from previous, 4.2% decrease from baseline (<5% change is not significant). Prior: BMD 0.950 g/cm2. Baseline: BMD 0.858 g/cm2. LEFT FEMUR, NECK: Current: BMD 0.655 g/cm2, Z-score -1.2, T-score -2.8, osteoporosis. Prior: BMD 0.696 g/cm2. Baseline: BMD 0.718 g/cm2. LEFT FEMUR, TOTAL: Current: BMD 0.683 g/cm2, Z-score -1.2, T-score -2.6, osteoporosis, 9.9% decrease from previous, 7.3% decrease from baseline (<5% change is not significant). Prior: BMD 0.758 g/cm2. Baseline: BMD 0.737 g/cm2. Assessment & Plan Assessment & Plan (1) Seropositive rheumatoid arthritis: Comment: RF -ve, CCP +++ diagnosed in 2014 HCQ failed, Enbrel failed, Humira since 2019, Humira stopped 04/08 due to worsening joint pain leflunomide 20 mg since 2019 Actemra started 06/10 Code(s): M05.9 - Rheumatoid arthritis with rheumatoid factor, unspecified Category: Medical Plan: #Seropositive RA Patient is a 79-year-old female with seropositive rheumatoid arthritis. Today based on my examination her rheumatoid arthritis is under control. Her current pains are related to osteoarthritis. I did encourage her to continue to be consistent with the Actemra Plan - Actemra 162mg SC every other week - Leflunomide 20mg daily - Follow up CMP done today - RTC 4 months - Labs prior to visit: CBC, CMP, ESR, CRP, Lipid panel (2) Age-related osteoporosis without current pathological fracture: Comment: DEXA 01/2022: AP Spine -2.9, Left femur neck -2.8, Left femur total -2.6 Code(s): M81.0 - Age-related osteoporosis without current pathological fracture Category: Medical Plan: #Osteoporosis Patient with osteoporosis not currently on any treatment. Risk factors for osteoporosis including age, rheumatoid arthritis, prednisone use. Discussed medication with the family. They would like to think about it and revisit medications at next visit. I think based on her desire to travel frequently IV Reclast yearly would be the best medication for her. Plan - Discuss IV Reclast at next visit - Labs prior to next visit: Vitamin D, CMP (3) Polyarticular osteoarthritis: Code(s): M15.9 - Polyosteoarthritis, unspecified Category: Medical Plan: #Polyarticular OA Patient with pain that is complicated by polyarticular osteoarthritis. Discussed with patient and son that there is no cure for this. Treatment is mainly pain control. Given her age I would not want to do oral NSAIDs. We will do topical diclofenac and tramadol Offered steroid injection today but patient declined Plan - Topical diclofenac 1% 4 times a day - Tramadol 50mg bd prn for pain (4) Long-term current use of tocilizumab: Code(s): Z79.620 - drawing supervisor (current) use of immunosuppressive biologic Category: Medical Plan: #Long-term Use of Tocilizumab Discussed the risks and benefits of tocilizumab with the management of this patient's rheumatic condition. ? Benefits include decreased pain, improved mortality, improved quality of life Risks include LFT abnormalities, elevated triglycerides, GI perforations Contraindicated in a patient with history of diverticulitis (5) Encounter for monitoring tocilizumab therapy: Code(s): Z51.81 - Encounter for therapeutic drug level monitoring; Z79.620 - drawing supervisor (current) use of immunosuppressive biologic Category: Medical Plan: #Long-term Use of Tocilizumab Discussed the risks and benefits of tocilizumab with the management of this patient's rheumatic condition. ? Benefits include decreased pain, improved mortality, improved quality of life Risks include LFT abnormalities, elevated triglycerides, GI perforations Contraindicated in a patient with history of diverticulitis Monitoring: ?CBC, CMP, triglycerides (6) Encounter for monitoring leflunomide therapy: Code(s): Z51.81 - Encounter for therapeutic drug level monitoring; Z79.899 - Other service order dispatcher (current) drug therapy Category: Medical Plan: #Long-term leflunomide Discussed with patient the benefits and risks of leflunomide for managing the rheumatic condition Benefits include: - Reduced pain, maintenance of remission and reduction of flares Risks include: - GI upset especially diarrhea, skin rash, cytopenias, hepatotoxicity, weight loss, neuropathy Monitoring: ?CBC, BMP, LFTs, hepatitis B and C serologies Plan I spent 30 minutes reviewing the record and labs, taking a history, examining the patient, discussing the treatment plan and documenting in the medical record Orders: Orders Complete Blood Count Auto Diff 4 Months Z51.81 - Encounter for therapeutic drug level monitoring, Z79.620 - skilled nursing (current) use of immunosuppressive biologic Comprehensive Met. Panel 4 Months Z51.81 - Encounter for therapeutic drug level monitoring, Z79.620 - skilled nursing (current) use of immunosuppressive biologic C Reactive Protein 4 Months Z51.81 - Encounter for therapeutic drug level monitoring, Z79.620 - drawing supervisor (current) use of immunosuppressive biologic Lipid Panel 4 Months Z51.81 - Encounter for therapeutic drug level monitoring, Z79.620 - skilled nursing (current) use of immunosuppressive biologic Vitamin D 25-OH Total 4 Months E55.9 - Vitamin D deficiency, unspecified Erythrocyte Sedimentation Rate 4 Months Z51.81 - Encounter for therapeutic drug level monitoring, Z79.620 - skilled nursing (current) use of immunosuppressive biologic XR DEXA axial skeleton Today M81.0 - Age-related osteoporosis without current pathological fracture Medications: Changed From tramadol 50 mg PO Q8H PRN Pain M51.16 - Intervertebral disc disorders with radiculopathy, lumbar region, Z98.1 - Arthrodesis status To tramadol 50 mg PO BID 90 days 180 tabs 1RF Pain M51.16 - Intervertebral disc disorders with radiculopathy, lumbar region, Z98.1 - Arthrodesis status Refilled Actemra (tocilizumab) 162 mg (0.9 mL) subcut Q2W 1.8 mL 4RF NS M05.9 - Rheumatoid arthritis with rheumatoid factor, unspecified leflunomide 20 mg PO DAILY 90 tabs 1RF Coding Level of Care Code Est Pt Level 4 (93879) Complex EM visit Add On G2211 Diagnoses Seropositive rheumatoid arthritis M05.9 Age-related osteoporosis without current pathological fracture M81.0 Polyarticular osteoarthritis M15.9 Long-term current use of tocilizumab Z79.620 Encounter for monitoring tocilizumab therapy Z51.81; Z79.620 Encounter for monitoring leflunomide therapy Z51.81; Z79.899
[2024-05-15 13:38] VITALS: BP 130/62; PULSE 80
--- OUTSIDE RECORDS SUMMARY | 2024-05-15 14:35 | XMS_ITS | Encounter Summary ---
Author Organization [facility] Address [address] [address] Phone Care Team Providers Care Retail Route Supervisor Name Role Phone Helga Da Silva MD Primary Care Provide r Reason for Visit * Reason Comments Chronic Kidney Disease Encounter Details Date Type Department Care Team ([facility] st Contact Info) Description 05/10/2024 11:45 AM EST Office Visit [facility] [address] [phone] Carissa Leroy ARNP [address] [phone] Stage 3b chronic kidney disease [...] 42 Final 10/06/2020 42 Final eGFR Non-Afr Niuean Date Value Ref Range Status 08/29/2023 40 [...] Visit [facility] P.. [address] [phone] Bhupinder Simms MD [address] [address] Scheduled Orders Name Type Priority [...] disease documented in this encounter Care Teams Retail Route Supervisor Relationship Specialty Start Date End Date Helga Da Silva MD [facility] [address] [place] [address] [address] [place], [place] PCP - General 04/28/20 documented as of this encounter
--- OUTSIDE RECORDS SUMMARY | 2024-05-15 14:35 | XMS_ITS | Encounter Summary ---
Author Organization [facility] Address [address] [facility] [address] [place] [address] Phone Care Team Providers Care Interior Designer Name Role Phone Helga Da Silva MD Primary Care Provide r Reason for Visit * Reason Comments Med Refill Encounter Details Date Type Department Care Team (Late Contact Info) Description 03/25/2021 Refill [facility] [address] [facility] [address] [place] [phone] Bhupinder Simms MD [facility] [address] [phone] Social History Tobacco Use Types [...] Office Visit [facility] P. [address] [phone] Bhupinder Simms MD [address] [phone] documented as of this encounter Visit Diagnoses Not on filedocumented in this encounter Care Teams Interior Designer Relationship Specialty Start Date End Date Helga Da Silva MD [address] [place], [place] PCP - General 04/28/20 documented as of this encounter
--- OUTSIDE RECORDS SUMMARY | 2024-05-15 14:35 | XMS_ITS | Clinical Summary ---
Author Organization [facility] Address [address] [place] [phone] Phone Care Team Providers Care Resources Representative Name Role Phone Helga Da Silva MD [...] Visit [facility] [address] [phone] Cathy LeroyferJENN Stage 3b chronic kidney disease (HCC) (Primary Dx); Hypertensive renal disease; Anemia in chronic kidney disease 02/23/2024 Refill [facility] [place] [address] [facility] [address] [place] [phone] Bhupinder Simms MD 02/20/2024 Refill [facility] [address] [phone] Shayy Camacho [place] 02/20/2024 Refill [facility] [address] [phone] Bhupinder Simms MD 02/20/2024 Refill [facility] [address] [phone] Nely Frias [place] 02/20/2024 Office Communication [facility] [address] [phone] Bhupinder Simms MD 02/19/2024 Refill [facility] [place] 100 [facility] [address] [phone] Bhupinder Simms MD from Last 3 Months [...] Visit [facility] [address] [phone] Bhupinder Simms MD [address] [phone] Health Maintenance Due Date Last [...] patient's age to complete this topic Insurance FORMERLY [facility] ([id number]) [place] DUAL [facility] ([id number]) Care Teams Resources Representative Relationship Specialty Start Date End Date Helga Da Silva MD [facility] [address] [place] [address] [address] [place], [place] PCP - General 04/28/20
--- OUTSIDE RECORDS SUMMARY | 2024-05-15 14:35 | XMS_ITS | Encounter Summary ---
Author Organization [facility] [place] Address [address] [facility] [address] [place] [address] Phone Care Team Providers Care Customs Compliance Director Name Role Phone Helga Da Silva MD Primary Care Provide r Reason for Visit * Reason Comments Med Refill Encounter Details Date Type Department Care Team (Late Contact Info) Description 04/01/2021 Refill [facility] [address] [facility] [address] [place] [phone] Bhupinder Simms MD [facility] [address] [phone] Social History Tobacco Use Types [...] Office Visit [facility] P. [address] [phone] Bhupinder Simms MD [address] [phone] documented as of this encounter Visit Diagnoses Not on filedocumented in this encounter Care Teams Customs Compliance Director Relationship Specialty Start Date End Date Helga Da Silva MD [address] [place], [place] PCP - General 04/28/20 documented as of this encounter
== END 2024-05-15 14:01 | disposition home or self-care (01) ==
PROVIDERS: PCP Internal Medicine; Visit Provider Student in an Organized Health Care Education/Training Program
DX: M05.79 Rheumatoid arthritis with rheumatoid factor of multiple sites without organ or systems involvement (principal); M81.0 Age-related osteoporosis without current pathological fracture; M15.9 Polyosteoarthritis, unspecified; Z79.620 Long term (current) use of immunosuppressive biologic; Z51.81 Encounter for therapeutic drug level monitoring; Z79.899 Other long term (current) drug therapy
CPT/HCPCS: 99214; G2211

== ENCOUNTER 2024-07-05 06:11 | Outpatient (REF) | payer OTHER, SELFPAY ==
--- NOTE | ~2024-07-05 | FL_ITS ---
EXAMINATION: FL GUIDANCE ONLY HISTORY: M51.16 - Intervertebral disc disorders with radiculopathy, lumbar region COMPARISON: Correlation is made with plain films of the lumbar spine dated 01/18/2023. TECHNIQUE: Fluoroscopy time: 0.3 minutes. Cumulative Dose: 6.08 mGy. DAP: 0.0546 mGym2 Images: 2. FINDINGS: AP and lateral spot fluoroscopic spot films of the lumbar spine demonstrate a needle at the L3-4 level. FL/FL guidance in treatment room IMPRESSION: Fluoroscopy during procedure. Please see procedure report for additional information. Electronically signed by: Ab Huang MD 07/05/2024 02:37 PM EDT
== END 2024-07-05 06:12 | disposition home or self-care (01) ==
LOC: CF 06:11
PROVIDERS: Visit Provider Internal Medicine
DX: M51.16 Intervertebral disc disorders with radiculopathy, lumbar region (principal)
CPT/HCPCS: 64483; J1100; J2003; Q9967

== ENCOUNTER 2024-07-05 09:30 | Outpatient (AMB) | payer OTHER, SELFPAY ==
[2024-07-05 09:35] VITALS: BP 119/55; PULSE 77; RESP 16; O2SAT 96
--- NOTE | 2024-07-05 09:35 | MHC.OFFVIS ---
Vital Signs 07/05/24 09:35 07/05/24 10:36 BP 119/55 L 149/69 H Blood Pressure Location Rt brachial Rt brachial Position Sitting Sitting Respiration 16 16 Pulse 77 83 Pulse Source Pulse Oximeter Pulse Oximeter Pulse Oximetry (%) 96 100 Oxygen Delivery Method Room Air Room Air Intake Visit Reasons: Left L3 TFESI Gasoline Plant Operator Required: No Gasoline Plant Operator Name: Dr. Carrillo speaks Wolof Allergies Penicillins [PCN] Allergy (Intermediate, Verified 07/05/24 09:36) RASH Medication List - Last Reconciled 07/05/24 by Cristina Mcclure LPN acetaminophen ER (Tylenol Arthritis Pain) 650 mg PO Q12H PRN Actemra (tocilizumab) 162 mg (0.9 mL) subcut Q2W NS albuterol sulfate 90 mcg/actuation 2 inhalations inhalation Q4-6H PRN atorvastatin 20 mg PO BEDTIME docusate sodium 100 mg PO BID PRN fluticasone furoate-vilanterol 100-25 mcg/dose (Breo Ellipta) 1 inh inhalation DAILY furosemide 40 mg PO DAILY gabapentin 300 mg PO TID glimepiride 4 mg PO DAILY hydralazine 50 mg PO BID leflunomide 20 mg PO DAILY losartan 50 mg PO DAILY nifedipine ER 60 mg PO DAILY omeprazole magnesium (Prilosec OTC) 20 mg PO BID propranolol 20 mg PO BID ropinirole 0.5 mg PO TID ropinirole ER 2 mg PO BEDTIME tramadol 50 mg PO BID 90 days HPI HPI Left L3 TFESI: Details: Patient presents for scheduled procedure. Denies any recent cough, cold, infection, fever or other significant changes in medical history since last office visit. [facility] Medical History (Updated 05/15/24 @ 14:12 by Maryam Rios MD) Polyarticular osteoarthritis Long-term current use of tocilizumab Encounter for monitoring tocilizumab therapy Hypersomnia Snoring Restless legs syndrome (RLS) Back pain Arthritis Osteoporosis HTN (hypertension) Elevated cholesterol Asthma Numbness Diabetes GERD (gastroesophageal reflux disease) Hiatal hernia Proteinuria Cataract Seropositive rheumatoid arthritis Surgical History Hx of bilateral cataract extraction History of lumbar surgery Family History Brother HTN (hypertension) Diabetes Sister Diabetes Rheumatoid arthritis Social History Household Members: Family and None Housing: House Are you a primary childbirth and infant care teacher to a significant other at home: No Do you presently have visiting nurse or other home services: Yes Alcohol intake: never Patient Tobacco Use Status: Never used Tobacco service: No Physical Exam Vital Signs: Last Vital Signs Pulse 83 07/05/24 10:36 Resp 16 07/05/24 10:36 BP 149/69 H 07/05/24 10:36 Pulse Ox 100 07/05/24 10:36 Oxygen Delivery Method Room Air 07/05/24 10:36 Office Procedures Details: Transforaminal epidural steroid injection, Left L3/4 After obtaining written consent, pre-procedure blood pressure and heart rate were stable and recorded in the nursing record. The patient was placed in the prone position on the fluoroscopy table. The lumbosacral area was prepped with chloraprep, allowed to dry and draped in sterile fashion. Using fluoroscopy, the skin overlying our target was anesthetized with 0.5% lidocaine. A 22 gauge 3.5 inch spinal needle was advanced to the safe triangle in the upper pole of the left L3 foramen. No paresthesias were elicited with needle placement and aspiration was negative for blood and CSF. Correct needle position was confirmed with approximately 1 ml contrast dye (Omnipaque 180 mg/ml) injected under real-time fluoroscopy. No evidence of vascular or intrathecal uptake was seen and there was both epidural and peripheral spread of the contrast agent. 10 mg dexamethasone plus 1 ml containing 0.5% lidocaine was slowly injected. The needle was flushed and removed. The skin was cleansed and a sterile bandages were applied. The patient tolerated the procedure well and no complications were encountered. Following the procedure the patient's vital signs were stable. The patient was discharged home in good condition with post-procedural instructions. Time Out: Immediately prior to the procedure, the following was verbally confirmed that there is a signed consent form and that the correct patient, planned procedure, site and side are consistent with documentation and that necessary equipment and/or blood products are available prior to the start of the case. Complications: none EBL: <5 cc 03926 - Lumbar/Sacral Procedure code (CPT) selection complete Assessment & Plan Assessment & Plan (1) Lumbar disc herniation with radiculopathy: Code(s): M51.16 - Intervertebral disc disorders with radiculopathy, lumbar region Category: Medical Plan: Patient is status post left L3 TFESI. Patient tolerated procedure well and was discharged home in stable condition with discharge instructions. All questions were answered. We will follow-up via telephone or in clinic to assess response to therapy. A follow-up appointment was made during today's visit. Orders: Orders FL guidance in treatment room 07/05/24 M51.16 - Intervertebral disc disorders with radiculopathy, lumbar region Coding Level of Care Code Procedure Only Diagnoses Lumbar disc herniation with radiculopathy M51.16 CPT Codes Transforaminal Epidural Steroid Inj - TESI 3: 49691 - Lumbar/Sacral ([id number])
[2024-07-05 10:36] VITALS: BP 149/69; PULSE 83; RESP 16; O2SAT 100
== END 2024-07-05 10:36 | disposition home or self-care (01) ==
LOC: HO.PMCPRC 09:30
PROVIDERS: PCP Internal Medicine; Visit Provider Internal Medicine
DX: M51.16 Intervertebral disc disorders with radiculopathy, lumbar region (principal)
CPT/HCPCS: 64483

== ENCOUNTER 2024-12-10 15:45 | Outpatient (REF) | payer OTHER, SELFPAY ==
[2024-12-10 16:10] LABS: MANUAL DIFF FLAG NO
[2024-12-10 16:19] LABS: Hematocrit 29.9 % (37.0-47.0); Hemoglobin 8.8 g/dl (12.0-16.0); Imm Gran Abs Auto 0.04 X10*3/uL (0.00-0.03); Imm Gran Pct Auto 0.7 % (0.0-0.4); Lymphocytes Absolute Auto 0.8 X10*3/uL (1.2-4.9); Mean Corpuscular HGB Conc 29.4 g/dl (31.0-35.0); Mean Corpuscular Hemoglobin 23.8 pg (27.0-33.0); Mean Corpuscular Volume 81.0 fL (80.0-98.0); NRBC Abs Auto 0.000 X10*3/uL (0.0-0.012); NRBC Pct Auto 0.0 /100WBC (0.0-0.2); Platelet Count 245 X10*3/uL (160-400); Red Blood Count 3.69 X10*6/uL (4.20-5.50); White Blood Count 5.7 X10*3/uL (4.8-10.8)
[2024-12-10 16:57] LABS: Alanine Aminotransferase 21 U/L (0-31); Albumin Level 3.6 g/dL (3.5-5.0); Alkaline Phosphatase 97 U/L (39-117); Anion Gap 14 (12-20); Aspartate Amino Transferase 30 U/L (5-31); Blood Urea Nitrogen 71 mg/dL (9-16); Calcium 8.2 mg/dL (8.4-10.2); Carbon Dioxide 22 mmol/L (22-29); Chloride 107 mmol/L (96-108); Cholesterol 186 mg/dL (<200); Estimated Glomerular Filt Rate 14; HDL Cholesterol 39 mg/dL (>40); Potassium 5.4 mmol/L (3.3-5.1); Sodium 138 mmol/L (135-145); Total Protein 6.3 g/dL (6.5-8.0); Triglycerides 158 mg/dL (<150)
--- OUTSIDE RECORDS SUMMARY | 2024-12-10 17:45 | XMS_ITS | Encounter Summary ---
Author Organization [facility] Address 100 [facility] 200 [place] [address] Phone Care Team Providers Care Farm Appraiser Name Role Phone Helga Da Silva MD Primary Care Provide r Reason for Visit * Reason Comments Med Refill Encounter Details Date Type Department Care Team (Late st Contact Info) Description 03/25/2021 Refill [facility] 100 [facility] 200 [place] [address] Bhupinder Simms MD [address] [phone] Social History Tobacco Use Types [...] Care Team (Late st Contact Info) Description 05/06/2025 2:45 PM EST Office Visit [facility] [address] [phone] Bhupinder Simms MD [address] [phone] documented as of this encounter Visit Diagnoses Not on filedocumented in this encounter Care Teams Farm Appraiser Relationship Specialty Start Date End Date Helga Da Silva MD [facility] [address] [place] [address] [address] [place], [place] PCP - General 04/28/20 documented as of this encounter
--- OUTSIDE RECORDS SUMMARY | 2024-12-10 17:45 | XMS_ITS | Clinical Summary ---
Author Organization [facility] Address [address] [place] [address] Phone Care Team Providers Care Joiner Helper Name Role Phone Helga Da Silva MD Primary Care Provide r Allergies Active Allergy Reactions Criticality Noted Date Comments Penicillins Other (see comments) 05/30/2020 Medications Acetaminophen 500 MG capsule Take 1 tablet [...] mouth if needed for muscle spasms Active hydrALAZINE 50 MG tablet TAKE 1 [...] or split. 90 tablet 3 5 Active furosemide (LASIX) 40 MG tablet TAKE 1 TABLET(40 MG) BY MOUTH EVERY DAY 90 tablet 3 5 Active pregabalin (LYRICA) 300 MG capsule Take 300 mg by mouth in the morning and 300 mg in the evening. 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 [address] [phone] Bhupinder Simms MD Stage 3b chronic kidney disease (HCC); Hypertensive renal disease; Type 2 diabetes mellitus with diabetic chronic kidney disease (HCC) 11/05/2024 3:00 PM EDT Office Visit [facility] [address] [place] [phone] Bhupinder Simms MD Stage 3b chronic kidney disease (HCC) (Primary Dx); Hypertensive renal disease; Type 2 diabetes mellitus with diabetic chronic kidney disease (HCC) 10/14/2024 Orders Only [facility] [address] [phone] Carissa Leroy ARNP Stage 3b chronic kidney disease (HCC); Hypertensive renal disease; Anemia in chronic kidney disease from Last 3 Months Immunizations Immunization Administration Dates Next Due Influenza, Unspecified 02/14/2020,01/31/2019 [...] Sign Reading Time Taken Comments Blood Pressure 120/72 11/05/2024 3:42 PM EDT Pulse 82 11/05/2024 3:42 PM EDT Temperature - - Respiratory Rate - - Oxygen Saturation 95% 05/10/2024 11:57 AM EST Inhaled Oxygen Concentration - - Weight 84.6 kg (186 lb 6.4 oz) 11/05/2024 3:42 P M EDT Height 162.6 cm (5' 4 ) 10/03/2020 9:21 AM EDT Body Mass Index 32 10/03/2020 9:21 AM EDT Plan of Treatment Upcoming Encounters Date Type Department Care Team (Late st Contact Info) Description 05/06/2025 2:45 PM EST Office Visit [facility] [address] [phone] Bhupinder Simms MD [address] [phone] Health Maintenance Due Date Last Done Comments Hepatitis B Vaccine (1 of 3 - Risk 3-dose series) 2006 Pneumococcal Vaccine: 50+ Ye ars (2 of 2 - PPSV23, PCV20, or PCV21) 03/03/2017 01/06/2017 Diabetes: Hemoglobin A1C 12/10/2021 Diabetes: Ophthalmology Exam 12/10/2021 Diabetes: Pedal Pulse Checked 12/10/2021 Diabetes: Sensory Foot Exam 12/10/2021 Diabetes: Visual Foot Exam 12/10/2021 Influenza Vaccine (#1) 2024 , 01/31/2019, 01/06/2017, Additional history exists Pneumococcal Vaccine: Peds ( 0 to 5 Years) and At-Risk Patients (6 to 49 Years) Discontinued 01/06/2017 Insurance [place] Dual [employer] ([id number]) Mariela Dual MCR/WOLF ([id number]) Care Teams Joiner Helper Relationship Specialty Start Date End Date Helga Da Silva MD [facility] [address] [place] [address] [address] [place], [place] PCP - General 04/28/20
--- OUTSIDE RECORDS SUMMARY | 2024-12-10 17:45 | XMS_ITS | Encounter Summary ---
Author Organization [facility] Address 100 [facility] 200 [place] [address] Phone Care Team Providers Care Broadloom Weaver Name Role Phone Helga Da Silva MD Primary Care Provide r Reason for Visit * Reason Comments Med Refill Encounter Details Date Type Department Care Team (Late st Contact Info) Description 04/01/2021 Refill [facility] 200 [place] [address] Bhupinder Simms MD [address] [phone] Social History Tobacco Use Types [...] Visit [facility] [address] [phone] Bhupinder Simms MD [address] [phone] documented as of this encounter Visit Diagnoses Not on filedocumented in this encounter Care Teams Broadloom Weaver Relationship Specialty Start Date End Date Helga Da Silva MD [facility] [address] [place] [address] [address] [place], [place] PCP - General 04/28/20 documented as of this encounter
== END 2024-12-10 15:46 | disposition home or self-care (01) ==
LOC: HO.LAB 15:45
PROVIDERS: PCP Internal Medicine; Visit Provider Student in an Organized Health Care Education/Training Program
DX: Z51.81 Encounter for therapeutic drug level monitoring (principal); E55.9 Vitamin D deficiency, unspecified; Z79.620 Long term (current) use of immunosuppressive biologic; Z13.6 Encounter for screening for cardiovascular disorders
CPT/HCPCS: 36415; 80053; 80061; 82306; 85025; 85652; 86140

== ENCOUNTER 2025-01-14 10:23 | Outpatient (AMB) | payer OTHER, SELFPAY ==
--- NOTE | 2025-01-14 10:24 | MHC.OFFVIS ---
Vital Signs 01/14/25 10:25 Height 5 ft 4 in Weight 194 lb BMI 33.3 BP 110/52 L Blood Pressure Location Lt brachial Position Sitting Respiration 16 Pulse 80 Pulse Source Pulse Oximeter Intake Visit Reasons: Leg Pain Stretching Machine Operator Required: No Accompanied by: Child Allergies Penicillins (PCN) Allergy (Intermediate, Verified 01/14/25 10:27) RASH Medication List - Last Reconciled 01/14/25 by Cristina Mcclure LPN acetaminophen ER (Tylenol Arthritis Pain) 650 mg PO Q12H PRN Actemra (tocilizumab) 162 mg (0.9 mL) subcut Q2W NS albuterol sulfate 90 mcg/actuation 2 inhalations inhalation Q4-6H PRN atorvastatin 20 mg PO BEDTIME cholecalciferol (vitamin D3) 125 mcg PO DAILY docusate sodium 100 mg PO BID PRN fluticasone furoate-vilanterol 100-25 mcg/dose (Breo Ellipta) 1 inh inhalation DAILY furosemide 40 mg PO DAILY glimepiride 4 mg PO DAILY hydralazine 50 mg PO BID leflunomide 20 mg PO DAILY losartan 50 mg PO DAILY nifedipine ER 60 mg PO DAILY omeprazole magnesium (Prilosec OTC) 20 mg PO BID pregabalin 50 mg PO BID propranolol 20 mg PO BID ropinirole ER 2 mg PO BEDTIME tramadol 50 mg PO BID 90 days HPI HPI Leg Pain: Details: History of Present Illness The patient is a 79-year-old female presenting with post-laminectomy syndrome and lumbar radicular pain. Following her laminectomy, the patient has experienced persistent lumbar radicular pain. She was referred for psychological clearance to evaluate her suitability for SCS. The patient has been treated with epidural injections, but she now reports new right-sided lower extremity pain and weakness, differing from her previous left-sided symptoms. Her creatinine levels are elevated, potentially due to age, necessitating further evaluation. Pain Description - Onset: 6 Months - Quality: Radicular pain - Location: Lumbar region with new right-sided lower extremity involvement - Exacerbating factors: Not specified - Relieving factors: Epidural injections Physical Exam - Appears afebrile. - Alert and oriented. - Mood and affect appropriate. - Follows and participates in conversation appropriately. - Sitting in a wheelchair. - Straight leg raise positive on the right side. REPLACED BY [facility] Medical History (Updated 05/15/24 @ 14:12 by Maryam Rios MD) Polyarticular osteoarthritis Long-term current use of tocilizumab Encounter for monitoring tocilizumab therapy Hypersomnia Snoring Restless legs syndrome (RLS) Back pain Arthritis Osteoporosis HTN (hypertension) Elevated cholesterol Asthma Numbness Diabetes GERD (gastroesophageal reflux disease) Hiatal hernia Proteinuria Cataract Seropositive rheumatoid arthritis Surgical History Hx of bilateral cataract extraction History of lumbar surgery Family History Brother HTN (hypertension) Diabetes Sister Diabetes Rheumatoid arthritis Social History Household Members: Family and None Housing: House Are you a primary skin care therapist to a significant other at home: No Do you presently have visiting nurse or other home services: Yes Alcohol intake: never Patient Tobacco Use Status: Never used Tobacco service: No Physical Exam Vital Signs: Last Vital Signs Pulse 80 01/14/25 10:25 Resp 16 01/14/25 10:25 BP 110/52 L 01/14/25 10:25 BMI result Body Mass Index 33.3 Assessment & Plan Assessment & Plan (1) Lumbar disc herniation with radiculopathy: Code(s): M51.16 - Intervertebral disc disorders with radiculopathy, lumbar region Category: Medical (2) Lumbar radiculopathy: Code(s): M54.16 - Radiculopathy, lumbar region Category: Medical Plan Plan Patient was informed and verbally consented to the use of an ambient scribe for clinic note documentation during this visit. 1. Post-Laminectomy Syndrome - Plan: Order MRI of the lumbar spine to assess new right-sided lower extremity pain and weakness. She is status post 3 surgeries for recurrent L3-4 disc herniation on the left side but right-sided symptoms are new during the last 6 months. - Follow-up: Nephrology for elevated creatinine levels that preclude MRI with contrast. 2. Lumbar Radicular Pain - Plan: Consider repeat right transforaminal injection as needed. 3. Elevated Creatinine Levels - Plan: Nephrology follow-up to investigate the cause of elevated creatinine levels. Discussion Notes I discussed with the patient the need for a new MRI of the lumbar spine to evaluate her new right-sided lower extremity pain and weakness. We also talked about the importance of following up with nephrology to address her elevated creatinine levels. Patient Instructions - Schedule an MRI of the lumbar spine as soon as possible. - Follow up with nephrology regarding elevated creatinine levels. Orders: Orders MR lumbar spine wo con 01/14/25 M51.16 - Intervertebral disc disorders with radiculopathy, lumbar region, M54.16 - Radiculopathy, lumbar region Coding Level of Care Code Est Pt Level 4 (61718) Diagnoses Lumbar disc herniation with radiculopathy M51.16 Lumbar radiculopathy M54.16
[2025-01-14 10:25] VITALS: BP 110/52; PULSE 80; RESP 16; BMI 33.3
--- OUTSIDE RECORDS SUMMARY | 2025-01-14 11:33 | XMS_ITS | Encounter Summary ---
Author Organization [facility] Address [address] [facility] 200 [place] [address] Phone Care Team Providers Care Engineering Recruiter Name Role Phone Helga Da Silva MD Primary Care Provide r Reason for Visit * Reason Comments Med Refill Encounter Details Date Type Department Care Team (Late st Contact Info) Description 03/25/2021 Refill [facility] [address] [facility] 200 [place] [address] Bhupinder Simms MD [address] [address] Social History Tobacco Use Types [...] Visit [facility] [address] [phone] Bhupinder Simms MD [address] [phone] documented as of this encounter Visit Diagnoses Not on filedocumented in this encounter Care Teams Engineering Recruiter Relationship Specialty Start Date End Date Helga Da Silva MD [facility] [address] [place] [address] [address] [place], [place] PCP - General 04/28/20 documented as of this encounter
--- OUTSIDE RECORDS SUMMARY | 2025-01-14 11:33 | XMS_ITS | Clinical Summary ---
Author Organization [facility] Address [address] [place] [address] Phone Care Team Providers Care Lead Customer Service Representative Name Role Phone Helga Da Silva [...] Orders Only [facility] [address] [phone] Bhupinder Simms MD Stage 3b chronic kidney disease (HCC); Hypertensive renal disease; Type 2 diabetes mellitus with diabetic chronic kidney disease (HCC) 11/05/2024 3:00 PM EDT Office Visit [facility] [address] [place] [phone] Bhupinder Simms MD Stage 3b chronic kidney disease (HCC) (Primary Dx); Hypertensive renal disease; Type 2 diabetes mellitus with diabetic chronic kidney disease (HCC) 10/14/2024 Orders Only [facility] [address] [phone] Carissa Leroy ARNP Stage 3b chronic kidney [...] Office Visit [facility] [address] [phone] Bhupinder Simms MD [address] [phone] Health Maintenance Due Date Last Done Comments [...] (6 to 49 Years) Discontinued 01/06/2017 Insurance [place] Dual tab ticketbroker/[employer] ([id number]) Mariel[place] Dual MCR/WOLF ([id number]) Care Teams Lead Customer Service Representative Relationship Specialty Start Date End Date Helga Da Silva MD [facility] [address] [place] [address] [address] [place], [place] PCP - General 04/28/20
--- OUTSIDE RECORDS SUMMARY | 2025-01-14 11:33 | XMS_ITS | Encounter Summary ---
Author Organization [facility] Address [address] [facility] [facility] 200 [place] [address] Phone Care Team Providers Care Donor Relations Associate Name Role Phone Helga Da Silva MD Primary Care Provide r Reason for Visit * Reason Comments Med Refill Encounter Details Date Type Department Care Team (Late st Contact Info) Description 04/01/2021 Refill [facility] [address] [facility] [facility] 200 [place] [address] Bhupinder Simms MD [address] [phone] Social History Tobacco Use Types [...] Visit [facility] [address] [phone] Bhupinder Simms MD [address] [phone] documented as of this encounter Visit Diagnoses Not on filedocumented in this encounter Care Teams Donor Relations Associate Relationship Specialty Start Date End Date Helga Da Silva MD [facility] [address] [place] [address] [address] [place], [place] PCP - General 04/28/20 documented as of this encounter
== END 2025-01-14 10:58 | disposition home or self-care (01) ==
PROVIDERS: PCP Internal Medicine; Visit Provider Internal Medicine
DX: M51.16 Intervertebral disc disorders with radiculopathy, lumbar region (principal)
CPT/HCPCS: 99214

== ENCOUNTER → 2025-01-14 10:23 | Outpatient (BNVA) | payer OTHER, SELFPAY | PROVIDERS: PCP Internal Medicine; Visit Provider Internal Medicine | DX: M51.16 Intervertebral disc disorders with radiculopathy, lumbar region (principal); R79.89 Other specified abnormal findings of blood chemistry; M96.1 Postlaminectomy syndrome, not elsewhere classified | CPT/HCPCS: 99212 ==

== ENCOUNTER 2025-03-26 14:35 | Outpatient (AMB) | payer OTHER, SELFPAY ==
--- NOTE | 2025-03-26 14:44 | A.OFFVIS_ITS ---
Vital Signs 03/26/25 14:45 Height 5 ft 4 in Weight 178 lb BMI 30.6 BP 122/78 Blood Pressure Location Rt brachial Position Sitting Pulse 77 Pulse Source Pulse Oximeter Pulse Oximetry (%) 95 Oxygen Delivery Method Room Air Intake Visit Reasons: follow up per MD Intake Note: Patient presents follow up Sleep. HST in chart 03/2023(AHI-5, PARUL-72%) Maintenance Equipment Operator Required: Yes Maintenance Equipment Operator Services: Maintenance Equipment Operator Offered & Declined Maintenance Equipment Operator Name: Son to interpret Accompanied by: Son Allergies Penicillins (PCN) Allergy (Intermediate, Verified 03/26/25 14:45) RASH HPI Comments Details: 79y/o r. handed female presents for a f/u of restless legs syndrome and Home Sleep Study results. She is here with her son today who helps with history taking. HST c/w mild SONAL AHI is 5 and oxygen nadirs to 72% and <88% for 51min. Oral appliance is an alternative option to cpap therapy along with weight reduction, due to comorbidites positive airway pressure therapy is recommended. She was seen 2 years ago for restless legs, since her last visit she had 4 back surgeries but still persistent pain. She takes ropinirole 0.5 mg tid and gabapentin 300mg tid. She has trouble falling asleep and staying asleep, will pace all night, then sits in her recliner, due to severe pain in her lower back. She snores and has multiple arousals causing fragmented sleep daily. Memory and mood is stable. Diet is poor due to CKD nephropathy, limitations with fluid intake, fluid retention. She also has peripheral neuropathy due to diabetes, and bilateral pitting edema causing paresthesias, with radiating burning pain. She ambulates with her rolling walker, no more than 10-15min and feels short of breath. PMH of seronegative RA, IGA nephropathy, L3/L4 discectomy, fusion, spondylolysthesis x 4 [facility], for disc protrusion, she has a f/u with pain management for a lumbar neuro-stimulator implant. [facility] Medical History Polyarticular osteoarthritis Long-term current use of tocilizumab Encounter for monitoring tocilizumab therapy Hypersomnia Snoring Restless legs syndrome (RLS) Back pain Arthritis Osteoporosis HTN (hypertension) Elevated cholesterol Asthma Numbness Diabetes GERD (gastroesophageal reflux disease) Hiatal hernia Proteinuria Cataract Seropositive rheumatoid arthritis Surgical History Hx of bilateral cataract extraction History of lumbar surgery Family History Brother HTN (hypertension) Diabetes Sister Diabetes Rheumatoid arthritis Social History Household Members: Family and None Housing: House Are you a primary caregivers non medical to a significant other at home: No Do you presently have visiting nurse or other home services: Yes Alcohol intake: never Patient Tobacco Use Status: Never used Tobacco service: No Physical Exam Vital Signs: Last Vital Signs Pulse 77 03/26/25 14:45 BP 122/78 03/26/25 14:45 Pulse Ox 95 03/26/25 14:45 Oxygen Delivery Method Room Air 03/26/25 14:45 BMI result Body Mass Index 30.6 Const General: cooperative Nutritional Appearance: obese Orientation/consciousness: patient oriented x3 Neuro Other: walks with walker - antalgic General: patient oriented x3 Cognition (Neuro): normal cognition Gait exam (Neuro): Antalgic gait present Motor exam (neuro): Normal motor muscle tone present throughout Deep tendon reflexes (DTR's): Right triceps reflex intensity grade: 1+, Left triceps reflex intensity grade: 1+, Rt Biceps (C5, C6): 0, Left biceps reflex intensity grade: 0, Right brachioradialis reflex intensity grade: 0, Left brachioradialis reflex intensity grade: 0, Right patellar reflex intensity grade: 0 and Left patellar reflex intensity grade: 0 Coordination: [id number] test normal Psych Appearance: grossly normal Mental Status: mental status grossly normal Speech and movement: Other speech and movement exam findings present (Psych) Affect: normal affect Attitude: cooperative Thought process: Normal thought process present Results Reviewed Results Reviewed: [facility] notes Lumbar discectomy, fusion. Labs 11/2024 Assessment & Plan Assessment & Plan (1) Restless legs syndrome (RLS): Comment: poorly controlled nidra Code(s): G25.81 - Restless legs syndrome Category: Medical (2) Snoring: Comment: cpap Code(s): R06.83 - Snoring Category: Medical Plan Mild SONAL reviewed HST with pt and motivated to start cpap therapy vs oral mandibular device. Rx for apap [id number] and full face mask with chin straps. RLS Continue ropinirole 0.5 mg tid and i will trial her on ropinirole XR 2mg qhs for better control of symptoms. Increase gabapentin 300mg qam qnoon and 2 tabs at bed time I will write her a rx for Nidra, tonic nerve stimulator. She was started on Ropinorole 0.5mg and pain is still intolerable. Lumbar pain, fusion, sponylolysthesis, f/u with pain management re: implantable pain stimulator. Labs reviewed and Iga Nephropathy levels are inconsistent. F/U in 3 months Medications: New [nidra tonic stimulation device] As directed 2 ea 0RF Restless Legs Syndrome G25.81 - Restless legs syndrome [nidra tonic stimulation device] As directed 2 ea 0RF Restless Legs Syndrome G25.81 - Restless legs syndrome Patient Instructions: Sleep Hygiene provided: set a scheduled bedtime and wake time to help regulate the circadian rhythm and balance the release of pituitary hormones. Sleep in a dark room, temperatures below 68 degrees, and no devices n bed. Limit caffeinated products 6 hours prior to bed, and limit fluids 2-4 hours prior to bed. Gentle night yoga, diffusing essential oils, and playing soft music can be relaxing. Coding Level of Care Code Est Pt Level 4 (47652) Diagnoses Restless legs syndrome (RLS) G25.81 Snoring R06.83
[2025-03-26 14:45] VITALS: BP 122/78; PULSE 77; O2SAT 95; BMI 30.6
== END 2025-03-26 16:09 | disposition home or self-care (01) ==
LOC: HO.HSMS 14:36
PROVIDERS: PCP Internal Medicine; Visit Provider Physician Assistant Medical
DX: G25.81 Restless legs syndrome (principal); R06.83 Snoring
CPT/HCPCS: 99214

== ENCOUNTER → 2025-03-26 14:35 | Outpatient (BNVA) | payer OTHER, SELFPAY | PROVIDERS: PCP Internal Medicine; Visit Provider Physician Assistant Medical | DX: G47.33 Obstructive sleep apnea (adult) (pediatric) (principal); R06.83 Snoring; G25.81 Restless legs syndrome; M47.816 Spondylosis without myelopathy or radiculopathy, lumbar region; Z79.899 Other long term (current) drug therapy; Z71.89 Other specified counseling | CPT/HCPCS: 99212 ==